=== PATIENT | male | born 1960 | race Caucasian/White ===

== ENCOUNTER 2023-11-07 10:45 | Inpatient (IN) | payer OTHER, SELFPAY ==
[2023-11-07] VITALS (11 sets, daily range): BP systolic 118–160; BP diastolic 53–72; PULSE 36–57; RESP 17–27; TEMP 36.7–37.2; O2SAT 93–99; BMI 27.3; BMI 28.2
--- NOTE | 2023-11-07 10:52 | XR_ITS ---
WS: [id number] Portable AP upright chest, 11/07/2023 Clinical Data: afib Comparison: None. Findings: No nodules or masses are seen. There is minimal opacity over the surface of the left diaph ragm which is probably atelectasis or possible minimal pneumonia. There is a small right pleural effu ankit. The heart is normal. The pulmonary vascularity is not increased. No pneumonia or pneumothorax i s seen. Monitor leads are on the chest wall. There is a monitor device overlying the right cardiac ian rder. There are old right sixth and seventh rib fractures laterally. XR/XR chest 1V portable [id number] Impression: 1. Minimal opacity over surface left diaphragm most likely atelectasis. 2. Small right pleural effusion.
--- NOTE | 2023-11-07 10:52 | ECG_ITS ---
[facility] Test Date: 2023-11-07 Pat Name: Oliver Pruett Department: Room: Gender: Male Audiologist: : 1960 Requested By: Lester Byrd Order Number: [id number] Judson MD: Kehinde Kilgore M.D. Measurements Intervals [place] Rate: 34 P: 0 AL: 0 QRS: 66 QRSD: 103 T: 3 QT: 458 QTc: 346 Interpretive Statements SINUS RHYTHM WITH HIGH GRADE AV BLOCK SEPTAL MYOCARDIAL INFARCTION , OF INDETERMINATE AGE [40+ ms Q WAVE IN V1/V2] No previous ECG available for comparison Electronically Signed On 11-07-2023 14:49:59 CDT by Kehinde Kilgore M.D. [id number] f
[2023-11-07 11:21] LABS: Basophils # 0.1 10^3/uL (0.0-0.1); Basophils % 0.3 %; Eosinophils # 0.8 10^3/uL (0.0-0.8); Eosinophils % 3.6 %; Hematocrit 41.3 % (37-53); Lymphocytes # 2.3 10^3/uL (0.8-4.8); Lymphocytes % 10.2 %; Mean Corpuscular Hemoglobin 30.1 pg (27-33); Mean Corpuscular Volume 94.3 fl (82-101); Mean Platelet Volume 8.6 fL (7.4-10.4); Monocytes # 1.7 10^3/uL (0.2-0.9); Monocytes % 7.5 %; Neutrophils # 17.54 10^3/uL (1.8-7.7); Neutrophils % 77.1 %; Nucleated Red Blood Cells % 0 %; Platelet Count 559 10^3/cmm (157-399); Red Blood Count 4.38 10^6/uL (3.85-5.65); Red Cell Distribution Width 13.8 % (12.1-15.1); White Blood Count 22.73 10^3/uL (3.29-11.43)
--- NOTE | 2023-11-07 11:22 | W.ED.ARRPALP ---
HPI - Arrhythmia/Palpitations General: Chief Complaint: Arrhythmia/Palpitations Stated Complaint: sent by [facility], Af Time Seen by Provider: 11/07/23 11:04 History of Present Illness: Patient with increased fatigue and feeling off for the past 3 weeks had episode of bronchitis versus pneumonia in clinic and was treated on doxycycline and prednisone. Just finishing up his prednisone now. No previous heart history no other medical problems no medications at baseline. Seen in clinic today and sent over for possible atrial fibrillation. EKG done in triage shows a ventricular rate of 34 with steady P waves unrelated to the QRS suggestive of third-degree heart block. Patient denies any chest pain. Does report increased fatigue and shortness of breath with any exertion no edema. Review of Systems General: Reports: 10 or more systems reviewed and unremarkable except in HPI and below PFSH ED PFSH: Social History Smoking and tobacco/nicotine status: never used tobacco/nicotine Physical Exam Const: COMMON NORMALS: no acute distress, average body habitus, patient oriented x3, healthy appearing, alert and well nourished GENERAL APPEARANCE: well kempt and well developed HENMT: COMMON NORMALS: normocephalic, atraumatic, external ears normal and moist oral mucous membranes HEAD & SCALP: normocephalic and atraumatic EXTERNAL EAR: Yes external ears normal Eye: COMMON NORMALS: Equal, round and reactive pupils present, EOMs intact bilaterally and conjunctivae normal CONJUNCTIVA: Yes conjunctivae normal PUPIL: Yes Equal, round and reactive pupils present Neck/C-Spine: COMMON NORMALS: full ROM, no lymphadenopathy and supple Chest: CHEST: Yes Symmetrical chest wall rise and No Surgical scars present (Chest) Resp: COMMON NORMALS: normal respiratory effort, No retractions, No use of accessory muscles and clear to auscultation bilaterally AUSCULTATION: clear to auscultation bilaterally Cardio: COMMON NORMALS: regular rhythm, S1 normal heart sound present, S2 normal heart sound present, No gallops present (Cardio), No clicks present (Cardio), No murmurs present (Cardio) and No rub (Cardio) RATE: bradycardic (30-40s) RHYTHM: regular rhythm HEART SOUNDS: S1 normal heart sound present, S2 normal heart sound present and no murmurs PERIPHERAL PULSES: other (Radial pulses 2+ and symmetric) GI: COMMON NORMALS: Soft to palpation, non-tender and no masses INSPECTION: No abdominal distension PALPATION: Yes Soft to palpation, No Guarding due to palpation present (GI) and No Rebound tenderness present : COMMON NORMALS: Yes no CVA tenderness BLADDER/KIDNEY EXAM: Yes no CVA tenderness Back/Pelvis: COMMON NORMALS: no CVA tenderness Extremity: COMMON NORMALS: normal to inspection, full ROM, capillary refill normal and no clubbing, cyanosis or edema Neuro: COMMON NORMALS: patient oriented x3 SENSORIUM/ORIENTATION: Yes alert Psych: APPEARANCE: Yes well kempt Skin: COMMON NORMALS: no rashes or lesions noted, no wounds, turgor normal and no jaundice GENERAL SKIN EXAM: no rashes or lesions noted and turgor normal Course ED course: Patient placed on pads, blood pressure maintaining appropriate normals. CBC back, pending electrolytes. Vital Signs: Vital signs: Vital Signs Temperature 99.0 F 11/07/23 23:24 Pulse Rate 57 L 11/07/23 23:24 Respiratory Rate 21 H 11/07/23 23:24 Blood Pressure 147/53 11/07/23 23:24 Pulse Oximetry 95 11/07/23 23:24 Oxygen Delivery Me thod Room Air, Nasal C annula 11/07/23 23:24 MDM - Arrhythmia/Palpitations Medical Decision Making Patient found to have third-degree heart block on EKG peer electrolytes were unrevealing for this. Has a leukocytosis secondary to recent steroid dosing. On chest x-ray on pressure review I see a small right pleural effusion. Radiology's impression shows minimal opacity over the surface of left diaphragm as well as small pleural effusion. BNP is also elevated. Suspect that patient's recent shortness of breath has been related heart issues for loop of time but today was noticed in clinic to have bradycardia and abnormal heart rhythm. Patient has no current history. Consulted Dr. Herrera for cardiology follow hospitalist for admission. Differential Diagnosis Likely artial fibrillation Medical Records I reviewed the patient's medical records. Lab Data I reviewed the patient's lab results. 11/07/23 11:08 11/07/23 11:08 Radiology Impressions Chest X-Ray 11/07/23 10:52 Impression: 1. Minimal opacity over surface left diaphragm most likely atelectasis. 2. Small right pleural effusion. Laboratory Results WBC 22.73 10^3/uL (3.29-11.43) H 11/07/23 11:08 RBC 4.38 10^6/uL (3.85-5.65) 11/07/23 11:08 Hgb 13.20 g/dL (11.27-16.99) 11/07/23 11:08 Hct 41.3 % (37-53) 11/07/23 11:08 MCV 94.3 fl (82-101) 11/07/23 11:08 MCH 30.1 pg (27-33) 11/07/23 11:08 MCHC 32.0 g/dL (30-55) 11/07/23 11:08 RDW 13.8 % (12.1-15.1) 11/07/23 11:08 Plt Count 559 10^3/cmm (157-399) H 11/07/23 11:08 MPV 8.6 fL (7.4-10.4) 11/07/23 11:08 Neut % (Auto) 77.1 % 11/07/23 11:08 Lymph % (Auto) 10.2 % 11/07/23 11:08 [place] % (Auto) 7.5 % 11/07/23 11:08 Eos % (Auto) 3.6 % 11/07/23 11:08 Baso % (Auto) 0.3 % 11/07/23 11:08 Neut # (Auto) 17.54 10^3/uL (1.8-7.7) H 11/07/23 11:08 Lymph # (Auto) 2.3 10^3/uL (0.8-4.8) 11/07/23 11:08 [place] # (Auto) 1.7 10^3/uL (0.2-0.9) H 11/07/23 11:08 Eos # (Auto) 0.8 10^3/uL (0.0-0.8) 11/07/23 11:08 Baso # (Auto) 0.1 10^3/uL (0.0-0.1) 11/07/23 11:08 Nucleated RBC % (auto) 0 % 11/07/23 11:08 Nucleated RBCs # 0.0 /100WBC 11/07/23 11:08 PT 14.30 SECONDS (12.1-14.9) 11/07/23 11:08 INR 1.08 (0.8-1.2) 11/07/23 11:08 APTT 31.1 SECONDS (23.9-36.7) 11/07/23 11:08 Sodium 133 mmol/L (136-145) L 11/07/23 11:08 Potassium 4.5 mmol/L (3.5-5.1) 11/07/23 11:08 Chloride 100 mmol/L (98-107) 11/07/23 11:08 Carbon Dioxide 23 mmol/L (22-29) 11/07/23 11:08 Anion Gap 14.5 (5-19) 11/07/23 11:08 BUN 20 mg/dL (8-23) 11/07/23 11:08 Creatinine 1.1 mg/dL (0.7-1.2) 11/07/23 11:08 GFR Calculation 67.4 mL/min (90-130) L 11/07/23 11:08 Glucose 123 mg/dL (65-115) H 11/07/23 11:08 Calculated Osmolality 280 mOsm/kg (285-295) L 11/07/23 11:08 Calcium 8.9 mg/dL (8.5-10.5) 11/07/23 11:08 Magnesium 1.9 mg/dL (1.7-2.3) 11/07/23 11:08 Total Bilirubin 0.5 mg/dL (0.15-1.2) 11/07/23 11:08 AST 17 U/L (0-40) 11/07/23 11:08 ALT 19 U/L (0-41) 11/07/23 11:08 Alkaline Phosphatase 100 U/L (40-130) 11/07/23 11:08 Troponin T Baseline 13 ng/L (0-15) 11/07/23 11:08 NT-Pro-B Natriuret Pep 2067 pg/mL (0-125) H 11/07/23 11:08 Total Protein 7.2 g/dL (6.6-8.7) 11/07/23 11:08 Albumin 3.6 g/dL (3.5-5.2) 11/07/23 11:08 Globulin 3.6 g/dL (1.3-4.6) 11/07/23 11:08 TSH 1.78 uIU/mL (0.27-4.20) 11/07/23 11:08 All radiology interpretation(s) finalized by discharge Critical Care Time Critical Care Time: Critical Care Time: Yes Total Critical Care Time: 45 Attestation: Critical care time exclusive of other procedures and involves bedside patient care, consultation of multiple other physicians as well as documentation and discussion with family and patient Discharge Plan Discharge Patient Disposition: Admitted As Inpatient Admit Provider: Andrea Telles Clinical Impression: Third degree heart block by electrocardiogram, Junctional rhythm, Bradycardia, Leukocytosis, Pleural effusion on right Condition: Stable Coding Level of Care Code ED [employer] Consultant for Jeremiah Goins
[2023-11-07 11:26] LABS: INR 1.08 (0.8-1.2)
[2023-11-07 11:27] LABS: Partial Thromboplastin Time 31.1 SECONDS (23.9-36.7)
[2023-11-07 11:43] LABS: Alanine Aminotransferase 19 U/L (0-41); Albumin Level 3.6 g/dL (3.5-5.2); Alkaline Phosphatase 100 U/L (40-130); Anion Gap 14.5 (5-19); Aspartate Amino Transferase 17 U/L (0-40); Blood Urea Nitrogen 20 mg/dL (8-23); Calcium 8.9 mg/dL (8.5-10.5); Carbon Dioxide 23 mmol/L (22-29); Chloride 100 mmol/L (98-107); Creatinine Clr Calc Pharmacy 72.9159; Globulin 3.6 g/dL (1.3-4.6); Glomerular Filtration Rate 67.4 mL/min (90-130); Glucose 123 mg/dL (65-115); Magnesium 1.9 mg/dL (1.7-2.3); NT Pro B Type Natriuretic Pept 2067 pg/mL (0-125); Osmolality Calculated 280 mOsm/kg (285-295); Potassium 4.5 mmol/L (3.5-5.1); Sodium 133 mmol/L (136-145); Thyroid Stimulating Hormone 1.78 uIU/mL (0.27-4.20); Total Bilirubin 0.5 mg/dL (0.15-1.2); Total Protein 7.2 g/dL (6.6-8.7)
--- NOTE | 2023-11-07 12:04 | USCV_ITS ---
Oliver Pruett Age: 63 Gender: M : 1960 Exam Date: 11/07/2023 13:54 Ordering Phys: Flaco Guillen MD Technologist: COURTNEY Exam Location: [facility] Indication: 3RD DEGREE BLOCK BP: 140 / 64 HR: 48 Rhythm: Sinus Technical Quality: Adequate MEASUREMENTS (Male / Female) Normal Values 2D ECHO LV Diastolic Diameter PLAX 4.9 cm 4.2 - 5.9 / 3.9 - 5.3 cm IVS Diastolic Thickness 0.9 cm 0.6 - 1.0 / 0.6 - 0.9 cm IVS Systolic Thickness 1.9 cm LVPW Diastolic Thickness 1.6 cm 0.6 - 1.0 / 0.6 - 0.9 cm LVPW Systolic Thickness 2.2 cm LVOT Diameter 2.0 cm LV Ejection Fraction 2D Teich 85.7 % LV Ejection Fraction MOD 2C 49.9 % LV Ejection Fraction 2C AL 49.9 % LA Diameter 2.9 cm RA Systolic Volume 4C AL 27.1 ml RA Systolic Volume 4C MOD 26.1 ml LA Sys Volume AL 58.9 cm cubed LA Sys Volume Index AL 28.9 cm cubed/m squared Aorta at Sinotubular Diameter 2.5 cm IVC Diameter 1.7 cm M-MODE LA Ao Ratio MM 0.9 AV Cusp Separation MM 1.7 cm DOPPLER AV Peak Velocity 205.0 cm/s LVOT Peak Velocity 148.0 cm/s AV Area Cont Eq vti 2.3 cm squared AV Area Cont Eq pk 2.3 cm squared MV Peak Velocity 136.0 cm/s MV Area PHT 3.5 cm squared Mitral E to A Ratio 1.2 TR Peak Velocity 314.0 cm/s TR Peak Gradient 39.4 mmHg TR Mean Velocity 243.0 cm/s TR Mean Gradient 25.7 mmHg TR Velocity Time Integral 111.0 cm TV Peak E Velocity 113.0 cm/s Right Atrial Pressure 3.0 mmHg Pulmonary Artery Systolic Pressu 42.4 mmHg PV Peak Velocity 110.0 cm/s RV Ejection Time 0.3 s FINDINGS Left Ventricle Normal left ventricular size and systolic function, EF 65%. No regional wall motion abnormalities. Right Ventricle The right ventricle is normal in size and function. Right Atrium The right atrium is normal in size. Left Atrium The left atrium is normal in size. Mitral Valve Mild-moderate mitral valve regurgitation. Aortic Valve No gross abnormalities noted Tricuspid Valve Trace to mild tricuspid valve regurgitation. Pulmonic Valve No gross abnormalities noted Pericardium Normal pericardium without effusion. Aorta Normal ascending aorta dimension. IVC The inferior vena cava appears normal. CONCLUSIONS Normal left ventricular size and systolic function, EF 65%. No regional wall motion abnormalities. Mild-moderate mitral valve regurgitation. Trace to mild tricuspid valve regurgitation. There is no pericardial effusion. There are no intracardiac masses. Estimated pulmonary artery peak systolic pressure 42 mmHg No similar previous studies are available for comparison Dr Griselda Herrera MD FACC (Electronically Signed) Final Date: 07 Nov 2023 20:03 S
[2023-11-07 12:18] LABS: Troponin(5th) Baseline 13 ng/L (0-15)
--- NOTE | 2023-11-07 12:53 | P.CONIM_ITS ---
Providers/Reason For Consult 2 Consulting Physician/Specialty*: ELIJAH Herrera MD/cardiology Reason for Consult*: Patient with the bradycardia Primary Care Provider: DEBRA Casas History of Present Illness History of Present Illness Oliver Pruett is a 63 year old male with no significant past medical history, is presenting with complaints of generalized weakness, body aches and a low- grade fever for a month and a half. For the last 3 days, he been feeling extremely tired and weak. He was seen in the local clinic this morning. His heart rate was found to be in the 30s. He was transferred to our facility for further evaluation management. According the patient, he has been very active and healthy up until a month and a half ago when he started having these aches and pains associated with generalized weakness and a low-grade fever. The fever has been intermittent. He had some amount of shortness of breath with activities also. He was seen by the primary care provider 2 weeks ago. He was placed on doxycycline for 10 days. Since then, he started feeling somewhat better. But for the last 3 days or so, he been feeling more drained out. Did not have any chest pain. No orthopnea or PND. He has no previous history for coronary artery disease, myocardial infarction or congestive heart failure. No history for hypertension, diabetes or dyslipidemia. He had a chest injury few years ago and had to undergo surgical resection of the lower lobe of the right lung. Since then, he has been having some amount of shortness of breath with activities. He has a 60-ryax-ilry history of smoking which he quit after his lung injury. No alcohol abuse or any other substance abuse. His mother had coronary disease and myocardial infarction. She had a permanent pacemaker implantation in her 60s. Father had a congestive heart failure and? Atrial fibrillation. He had a permanent pacemaker in his 70s or 80s. Patient has no previous history for any bradycardia. He is not on any medications to lower the heart rate at this point. Patient was found to have heart rate in the 30s at the time of the ER visit. Now it stays in the 40s. His systolic blood pressure has been staying above 120 all the time. Review of Systems 2 Narrative: CONSTITUTIONAL: Low-grade fever and generalized weakness as mentioned above EYES: No blurring of vision or other visual disturbances lately. ENT: No hoarseness of voice, auditory disturbances or sore throat. CARDIOVASCULAR: As mentioned above. RESPIRATORY: Shortness of breath as mentioned above GASTROINTESTINAL: No hematemesis or melena. GENITOURINARY: No dysuria or hematuria. INTEGUMENTARY: No skin rashes or history of skin cancer. NEURO: No transient ischemic attacks or amaurosis. PSYCHIATRIC: No history of psychosis or major depression. HEMATOLOGIC: No bleeding disorders or significant anemia. ENDOCRINE: No history of polyuria or polydipsia. MUSCULOSKELETAL: Generalized aches and pains/? Tick fever ALLERGY/IMMUNOLOGY: As mentioned above. Medications/Allergies Home Medications Medication Instructions Recorded Confirmed Last Taken Type No Known Home Medications 11/07/23 11/07/23 Unknown History Allergies Allergy/AdvReac Type Severity Reaction Status Date / Time No Known Allergies Allergy Verified 11/07/23 09:26 PFSH Acute 2 PFSH: Social History Smoking and tobacco/nicotine status: never used tobacco/nicotine Vitals/I&O/Wt Last Vital Signs Temp 98.0 F 11/07/23 10:56 Pulse 50 L 11/07/23 12:12 Resp 18 11/07/23 10:56 BP 132/61 11/07/23 12:12 Pulse Ox 97 11/07/23 12:12 O2 Del Method Room Air 11/07/23 10:56 Weight last 48 hrs Weight 185 lb Physical Exam 2 Narrative: GENERAL: The patient is alert and oriented times three. Not in any acute distress. HEENT: No significant pallor, icterus or lymphadenopathy.Oral cavity: There are no mucous membrane lesions. NECK: Trachea appears to be central. No masses noted. No JVD or thyromegaly appreciated. RESPIRATORY: Chest is symmetrical. No intercostals muscle retraction or any accessory muscle activation. There is no chest wall tenderness. Breath sounds are heard bilaterally. No rales or rhonchi heard. No evidence of any consolidation. BREASTS: Deferred. HEART: The heart sounds are normal. No S3 or S4. No significant murmurs. No pericardial rub ABDOMEN: No vessel pulsations or distention. No tenderness. No organomegaly appreciated. Bowel sounds are normally heard. : Deferred. RECTAL: Deferred. LYMPHATIC: No lymphadenopathy noted in the neck. EXTREMITIES: No edema or cyanosis. No clubbing. MUSCULOSKELETAL: No acute joint deformities or swelling SKIN: There are no significant rashes or ecchymosis NEUROPSYCHIATRIC: The patient is alert and oriented x3. Appears to be in a good mood. No tremors or rigidity noted. Data 11/07/23 11:08 11/07/23 11:08 Other Labs: Laboratory Last Values WBC 22.73 10^3/uL (3.29-11.43) H 11/07/23 11:08 RBC 4.38 10^6/uL (3.85-5.65) 11/07/23 11:08 Hgb 13.20 g/dL (11.27-16.99) 11/07/23 11:08 Hct 41.3 % (37-53) 11/07/23 11:08 MCV 94.3 fl (82-101) 11/07/23 11:08 MCH 30.1 pg (27-33) 11/07/23 11:08 MCHC 32.0 g/dL (30-55) 11/07/23 11:08 RDW 13.8 % (12.1-15.1) 11/07/23 11:08 Plt Count 559 10^3/cmm (157-399) H 11/07/23 11:08 MPV 8.6 fL (7.4-10.4) 11/07/23 11:08 Neut % (Auto) 77.1 % 11/07/23 11:08 Lymph % (Auto) 10.2 % 11/07/23 11:08 [place] % (Auto) 7.5 % 11/07/23 11:08 Eos % (Auto) 3.6 % 11/07/23 11:08 Baso % (Auto) 0.3 % 11/07/23 11:08 Neut # (Auto) 17.54 10^3/uL (1.8-7.7) H 11/07/23 11:08 Lymph # (Auto) 2.3 10^3/uL (0.8-4.8) 11/07/23 11:08 [place] # (Auto) 1.7 10^3/uL (0.2-0.9) H 11/07/23 11:08 Eos # (Auto) 0.8 10^3/uL (0.0-0.8) 11/07/23 11:08 Baso # (Auto) 0.1 10^3/uL (0.0-0.1) 11/07/23 11:08 Nucleated RBC % (auto) 0 % 11/07/23 11:08 Nucleated RBCs # 0.0 /100WBC 11/07/23 11:08 PT 14.30 SECONDS (12.1-14.9) 11/07/23 11:08 INR 1.08 (0.8-1.2) 11/07/23 11:08 APTT 31.1 SECONDS (23.9-36.7) 11/07/23 11:08 Sodium 133 mmol/L (136-145) L 11/07/23 11:08 Potassium 4.5 mmol/L (3.5-5.1) 11/07/23 11:08 Chloride 100 mmol/L (98-107) 11/07/23 11:08 Carbon Dioxide 23 mmol/L (22-29) 11/07/23 11:08 Anion Gap 14.5 (5-19) 11/07/23 11:08 BUN 20 mg/dL (8-23) 11/07/23 11:08 Creatinine 1.1 mg/dL (0.7-1.2) 11/07/23 11:08 GFR Calculation 67.4 mL/min (90-130) L 11/07/23 11:08 Glucose 123 mg/dL (65-115) H 11/07/23 11:08 Calculated Osmolality 280 mOsm/kg (285-295) L 11/07/23 11:08 Calcium 8.9 mg/dL (8.5-10.5) 11/07/23 11:08 Magnesium 1.9 mg/dL (1.7-2.3) 11/07/23 11:08 Total Bilirubin 0.5 mg/dL (0.15-1.2) 11/07/23 11:08 AST 17 U/L (0-40) 11/07/23 11:08 ALT 19 U/L (0-41) 11/07/23 11:08 Alkaline Phosphatase 100 U/L (40-130) 11/07/23 11:08 Troponin T Baseline 13 ng/L (0-15) 11/07/23 11:08 NT-Pro-B Natriuret Pep 2067 pg/mL (0-125) H 11/07/23 11:08 Total Protein 7.2 g/dL (6.6-8.7) 11/07/23 11:08 Albumin 3.6 g/dL (3.5-5.2) 11/07/23 11:08 Globulin 3.6 g/dL (1.3-4.6) 11/07/23 11:08 TSH 1.78 uIU/mL (0.27-4.20) 11/07/23 11:08 EKG 1: My Interpretation: Sinus tachycardia with a heart rate of 102 bpm. A-V dissociation. Third-degree AV block with junctional escape rhythm at a rate of 37 bpm. Other data: Chest x-ray shows small right-sided pleural effusion A&P Assessment and plan (1) Bradycardia: Patient seems to have sinus tachycardia without any heart block and junctional escape rhythm rate of 37 bpm. The etiology of this AV block is not clear at this time. Thyroid function is within normal limits. Tickborne illness (Lyme carditis) causing this cannot be completely excluded. (2) Congestive heart failure: Elevated BNP suggestive of diastolic heart failure.. Patient's LV function is not known at this time. For further evaluation, an echocardiogram would be helpful. Qualifiers: Heart failure type: diastolic Heart failure chronicity: acute Qualified Code(s): I50.31 - Acute diastolic (congestive) heart failure (3) Low grade fever: According the patient and his , he been having intermittent low-grade fever for a month and a half. (4) Fever with leukocytosis and leukocyte count greater than or equal to 20,000: The elevated white cell count, could be partly related to the steroids. Other etiologies cannot be excluded. Plan Echocardiogram to evaluate LV function and rule out any other pathology. Need to be closely monitored on telemetry. Since the patient seems to be hemodynamically stable, I may hold off on a temporary pacer at this point. Workup of the fever/Lyme disease as per the primary Based on the clinical progress, further recommendations will be made. Thank you for the opportunity to evaluate this patient and make these recommendations Consult Attestations 2 Medical Necessity Statement: Patient requires continued hospital stay for close monitoring and further management Coding Level of Care Code 60823 Diagnoses Bradycardia R00.1 Acute diastolic congestive heart failure I50.31 Heart failure type: diastolic Heart failure chronicity: acute Low grade fever R50.9 Fever with leukocytosis and leukocyte count greater than or equal to 20,000 D72.829
--- NOTE | 2023-11-07 14:47 | P.HP_ITS ---
Providers/Chief Complaint 2 Admitting Physician: Andrea Telles Primary Care Provider: DEBRA Casas Chief Complaint: sent by [facility], [facility] History of Present Illness Pleasant 63-year-old gentleman recently treated after a tick bite for possible tickborne fever, had some crackles in his lung and was also treated for possible respiratory tract infection, states he completed 14-day course of doxycycline. Was referred to emergency room due to concern for atrial fibrillation. In ER he is not found to be in A-fib, but is bradycardic heart rates in the 40s, as low as 36, with concern for high degree AV block. Review of Systems 2 Const: Reports: fatigue; Denies: fever(s), chills, body aches or malaise ENMT: Denies: throat pain Card: Denies: chest pain, edema, pre-syncope or dyspnea on exertion Resp: Denies: dyspnea, productive cough, change in phlegm color or hemoptysis GI: Denies: abdominal pain, nausea, vomiting, diarrhea, constipation, hematochezia or melena : Denies: flank pain, difficulty urinating, urinary frequency or hematuria Musc: Denies: back pain, joint swelling or joint redness Skin/Breast: Denies: rash or new lesions Neuro: Denies: headache(s) or confusion Endo: Denies: polyuria or polydipsia Medications/Allergies Home Medications Medication Instructions Recorded Confirmed Last Taken Type No Known Home Medications 11/07/23 11/07/23 Unknown History Allergies Allergy/AdvReac Type Severity Reaction Status Date / Time No Known Allergies Allergy Verified 11/07/23 09:26 PFSH Acute 2 PFSH: Social History Smoking and tobacco/nicotine status: never used tobacco/nicotine Vitals/I&O/Wt Last Vital Signs Temp 98.0 F 11/07/23 14:37 Pulse 45 L 11/07/23 14:37 Resp 17 11/07/23 14:37 BP 140/64 11/07/23 14:37 Pulse Ox 97 11/07/23 14:37 O2 Del Method Room Air 11/07/23 10:56 Weight last 48 hrs Weight 86.636 kg Weight 83.915 kg Physical Exam 2 Narrative: Accompanied by his Const: COMMON NORMALS: patient oriented x3 and alert GENERAL APPEARANCE: c ooperative ORIENTATION/CONSCIOUSNESS: Yes awake HENMT: COMMON NORMALS: oropharynx normal Neck/C-Spine: COMMON NORMALS: no JVD Resp: COMMON NORMALS: normal respiratory effort and clear to auscultation bilaterally AUSCULTATION: clear to auscultation bilaterally Cardio: COMMON NORMALS: no JVD, regular rhythm, S1 normal heart sound present, S2 normal heart sound present and No murmurs present (Cardio) RATE: b radycardic RHYTHM: regular rhythm HEART SOUNDS: S1 normal heart sound present and S2 normal heart sound present GI: COMMON NORMALS: Normal to inspection, nondistended, normoactive bowel sounds present, Soft to palpation and non-tender PALPATION: Yes Soft to palpation Extremity: COMMON NORMALS: no joint enlargement and no pedal edema Neuro: COMMON NORMALS: patient oriented x3 and moves all extremities S ENSORIUM/ORIENTATION: Yes alert Skin: COMMON NORMALS: no rashes or lesions noted GENERAL SKIN EXAM: no rashes or lesions noted Data 11/07/23 11:08 11/07/23 11:08 A&P Assessment and plan (1) Bradycardia: Reviewed vitals, CBC, INR, CMP, magnesium, TSH, EKG, chest x-ray, ED provider note, discussed with ED provider. Discussed with mail sorting supervisor. Referred to ED due to concern for atrial fibrillation, no A-fib, but is noted to be Significant bradycardia, down to severe bradycardia with 36 bpm, maintaining blood pressure. Concern for risk for cardiogenic shock/hemodynamic instability. Discussed with cardiology. TSH is WNL. Electrolytes are okay. Troponin is pending. Echocardiogram is requested. Follow-up. Question of possible complication of tick bite fever. Monitor on telemetry. Pacing pads are attached. Not requiring pressor at current time. Given risk of hemodynamic decompensation and cardiogenic shock decision to admit to [facility] for additional assessment and management. (2) Junctional rhythm: As above. (3) Leukocytosis: Leukocytosis 22.73, recently treated for suspected tickborne fever after tick bites. Completed 14 days of doxycycline. Also consideration of possible respiratory tract infection treated with same. Had some crackles on exam reportedly during the same visit. Denies cough, no sputum production. Afebrile currently. Leukocytosis 20.73 could be related to demargination secondary to steroids. Reassess blood counts. Monitor for any symptoms, he denies any symptoms that may relate to ongoing infection on review of systems, including no integumentary or dental problems. Occasionally smokes marijuana, denies any injection drug use. NT-proBNP with elevation 2066 Plan Atelectasis: On chest x-ray. Not flutter valve. Attestations 2 Medical Necessity Statement*: Place in observation for additional assessment of management of new severe bradycardia, junctional rhythm. Risk of hemodynamic decompensation, cardiogenic shock. Diagnoses Bradycardia R00.1 Junctional rhythm I49.8 Leukocytosis D72.829
--- NOTE | 2023-11-07 15:02 | PC.NURSE ---
notified physician on pt's arrival to room 106. and need further admit orderes.
[2023-11-07] MEDS: heparin 5,000 unit/mL INJ 1 mL 5000 UNIT SUBCUT (16:00)
--- NOTE | 2023-11-07 20:45 | PC.NURSE ---
Spoke with regrading patient request for something for sleep but is here with bradycardia and heart block. gave order for hydroxyzine PO once and to monitor heart rate.
[2023-11-07] MEDS: hyDROXYzine 25 mg Capsule PO (20:55)
[2023-11-08] VITALS (10 sets, daily range): BP systolic 112–141; BP diastolic 65–73; PULSE 49–113; RESP 15–27; TEMP 36.5–38.4; O2SAT 93–96
[2023-11-08] MEDS: heparin 5,000 unit/mL INJ 1 mL 5000 UNIT SUBCUT ×2 (03:42→14:34)
[2023-11-08 04:29] LABS: Basophils # 0.1 10^3/uL (0.0-0.1); Basophils % 0.3 %; Eosinophils # 0.5 10^3/uL (0.0-0.8); Eosinophils % 2.3 %; Hematocrit 37.1 % (37-53); Lymphocytes % 9.9 %; Mean Corpuscular HGB Conc 32.1 g/dL (30-55); Mean Corpuscular Hemoglobin 30.2 pg (27-33); Mean Corpuscular Volume 94.2 fl (82-101); Mean Platelet Volume 9.1 fL (7.4-10.4); Monocytes # 1.9 10^3/uL (0.2-0.9); Neutrophils # 15.87 10^3/uL (1.8-7.7); Neutrophils % 77.4 %; Nucleated Red Blood Cells % 0 %; Platelet Count 488 10^3/cmm (157-399); Red Blood Count 3.94 10^6/uL (3.85-5.65); Red Cell Distribution Width 13.8 % (12.1-15.1); White Blood Count 20.52 10^3/uL (3.29-11.43)
[2023-11-08 04:46] LABS: Alanine Aminotransferase 13 U/L (0-41); Albumin Level 3.1 g/dL (3.5-5.2); Alkaline Phosphatase 86 U/L (40-130); Anion Gap 15.2 (5-19); Aspartate Amino Transferase 16 U/L (0-40); Blood Urea Nitrogen 14 mg/dL (8-23); Calcium 7.8 mg/dL (8.5-10.5); Carbon Dioxide 19 mmol/L (22-29); Chloride 101 mmol/L (98-107); Creatinine Clr Calc Pharmacy 101.6954; Globulin 3.6 g/dL (1.3-4.6); Glomerular Filtration Rate 97.3 mL/min (90-130); Glucose 139 mg/dL (65-115); Magnesium 1.9 mg/dL (1.7-2.3); Osmolality Calculated 275 mOsm/kg (285-295); Potassium 4.2 mmol/L (3.5-5.1); Sodium 131 mmol/L (136-145); Total Bilirubin 0.8 mg/dL (0.15-1.2); Total Protein 6.7 g/dL (6.6-8.7)
--- NOTE | 2023-11-08 08:06 | P.PN_ITS ---
Subjective 2 Subjective: Patient is still complaining of generalized weakness and bodyaches. He is having more pain bilaterally in the lower extremities at the below-knee area. Has not had any fever since the hospital admission. The white cell count still remains elevated. Medications: Medication Review Details: Current Medications Acetaminophen (Acetaminophen 325 Mg Tablet) 650 mg PO Q6H PRN PRN Reason: Mild/Mod Pain Or Temp >/= 101 Heparin Sodium (Porcine) (Heparin 5,000 Unit/Ml Inj 1 Ml) 5,000 unit SUBCUT Q12H JL Last Admin: 11/08/23 03:42 Dose: 5,000 unit Ondansetron HCl (Ondansetron 2 Mg/Ml Sdv 2 Ml) 4 mg IVP Q8H PRN PRN Reason: vomiting, or N/V if npo Vitals/I&O/Wt Last Vital Signs Temp 98.2 F 11/08/23 07:37 Pulse 96 11/08/23 07:37 Resp 16 11/08/23 04:00 BP 136/70 11/08/23 07:37 Pulse Ox 96 11/08/23 07:37 O2 Del Method Room Air 11/08/23 07:37 11/07/23 11/08/23 11/08/23 22:59 06:59 14:59 Intake Total 460 / 460 Output Total 700 / 700 850 / 1550 275 / 275 Balance -700 / -700 -390 / -1090 -275 / -275 Weight last 48 hrs Weight 189 lb 3.2 oz Weight 191 lb Weight 185 lb Physical Exam 2 Narrative: GENERAL: The patient is alert and oriented times three. Not in any acute distress. HEENT: No significant pallor, icterus or lymphadenopathy.Oral cavity: There are no mucous membrane lesions. NECK: Trachea appears to be central. No masses noted. No JVD or thyromegaly appreciated. RESPIRATORY: Chest is symmetrical. No intercostals muscle retraction or any accessory muscle activation. There is no chest wall tenderness. Breath sounds are heard bilaterally. No rales or rhonchi heard. No evidence of any consolidation. BREASTS: Deferred. HEART: The heart sounds are normal. No S3 or S4. No significant murmurs. No pericardial rub ABDOMEN: No vessel pulsations or distention. No tenderness. No organomegaly appreciated. Bowel sounds are normally heard. : Deferred. RECTAL: Deferred. LYMPHATIC: No lymphadenopathy noted in the neck. EXTREMITIES: The below-knee areas are tender to touch bilaterally MUSCULOSKELETAL: No acute joint deformities or swelling SKIN: There are no significant rashes or ecchymosis NEUROPSYCHIATRIC: The patient is alert and oriented x3. Appears to be in a good mood. No tremors or rigidity noted. Data 11/08/23 03:59 11/08/23 03:59 Other Labs: Laboratory Last Values WBC 20.52 10^3/uL (3.29-11.43) H 11/08/23 03:59 RBC 3.94 10^6/uL (3.85-5.65) 11/08/23 03:59 Hgb 11.90 g/dL (11.27-16.99) 11/08/23 03:59 Hct 37.1 % (37-53) 11/08/23 03:59 MCV 94.2 fl (82-101) 11/08/23 03:59 MCH 30.2 pg (27-33) 11/08/23 03:59 MCHC 32.1 g/dL (30-55) 11/08/23 03:59 RDW 13.8 % (12.1-15.1) 11/08/23 03:59 Plt Count 488 10^3/cmm (157-399) H 11/08/23 03:59 MPV 9.1 fL (7.4-10.4) 11/08/23 03:59 Neut % (Auto) 77.4 % 11/08/23 03:59 Lymph % (Auto) 9.9 % 11/08/23 03:59 [place] % (Auto) 9.0 % 11/08/23 03:59 Eos % (Auto) 2.3 % 11/08/23 03:59 Baso % (Auto) 0.3 % 11/08/23 03:59 Neut # (Auto) 15.87 10^3/uL (1.8-7.7) H 11/08/23 03:59 Lymph # (Auto) 2.0 10^3/uL (0.8-4.8) 11/08/23 03:59 [place] # (Auto) 1.9 10^3/uL (0.2-0.9) H 11/08/23 03:59 Eos # (Auto) 0.5 10^3/uL (0.0-0.8) 11/08/23 03:59 Baso # (Auto) 0.1 10^3/uL (0.0-0.1) 11/08/23 03:59 Nucleated RBC % (auto) 0 % 11/08/23 03:59 Nucleated RBCs # 0.0 /100WBC 11/08/23 03:59 PT 14.30 SECONDS (12.1-14.9) 11/07/23 11:08 INR 1.08 (0.8-1.2) 11/07/23 11:08 APTT 31.1 SECONDS (23.9-36.7) 11/07/23 11:08 Sodium 131 mmol/L (136-145) L 11/08/23 03:59 Potassium 4.2 mmol/L (3.5-5.1) 11/08/23 03:59 Chloride 101 mmol/L (98-107) 11/08/23 03:59 Carbon Dioxide 19 mmol/L (22-29) L 11/08/23 03:59 Anion Gap 15.2 (5-19) 11/08/23 03:59 BUN 14 mg/dL (8-23) 11/08/23 03:59 Creatinine 0.8 mg/dL (0.7-1.2) 11/08/23 03:59 GFR Calculation 97.3 mL/min (90-130) 11/08/23 03:59 Glucose 139 mg/dL (65-115) H 11/08/23 03:59 Calculated Osmolality 275 mOsm/kg (285-295) L 11/08/23 03:59 Calcium 7.8 mg/dL (8.5-10.5) L 11/08/23 03:59 Magnesium 1.9 mg/dL (1.7-2.3) 11/08/23 03:59 Total Bilirubin 0.8 mg/dL (0.15-1.2) 11/08/23 03:59 AST 16 U/L (0-40) 11/08/23 03:59 ALT 13 U/L (0-41) 11/08/23 03:59 Alkaline Phosphatase 86 U/L (40-130) 11/08/23 03:59 Troponin T Baseline 13 ng/L (0-15) 11/07/23 11:08 NT-Pro-B Natriuret Pep 2067 pg/mL (0-125) H 11/07/23 11:08 Total Protein 6.7 g/dL (6.6-8.7) 11/08/23 03:59 Albumin 3.1 g/dL (3.5-5.2) L 11/08/23 03:59 Globulin 3.6 g/dL (1.3-4.6) 11/08/23 03:59 TSH 1.78 uIU/mL (0.27-4.20) 11/07/23 11:08 Other data: Echocardiogram revealed Normal left ventricular size and systolic function, EF 65%. No regional wall motion abnormalities. Mild-moderate mitral valve regurgitation. Trace to mild tricuspid valve regurgitation. There is no pericardial effusion. There are no intracardiac masses. Estimated pulmonary artery peak systolic pressure 42 mmHg No similar previous studies are available for comparison A&P Assessment and plan (1) Bradycardia: Patient has intermittent third-degree AV block and A-V dissociation. The etiology is unclear. The ventricular rate is ranging area from 47 to 96 bpm (2) Congestive heart failure: Patient has some features of diastolic heart failure. The LV systolic function is normal by echocardiogram. May consider doing a cardiac catheterization to further evaluate the coronary status Qualifiers: Heart failure chronicity: acute Heart failure type: diastolic Qualified Code(s): I50.31 - Acute diastolic (congestive) heart failure (3) Low grade fever: According the patient and his , he been having intermittent low-grade fever for a month and a half. (4) Fever with leukocytosis and leukocyte count greater than or equal to 20,000: The elevated white cell count, could be partly related to the steroids. Other etiologies cannot be excluded. Currently remaining afebrile May consider doing a blood culture and also a CRP (5) Bilateral leg pain: Patient seems to have hypersensitive skin of the lower extremity. The features may suggest some form of neuropathy. Plan Blood culture x 2 Urine analysis CRP May consider cardiac catheterization, once the infectious etiology is ruled out. Based on the clinical progress, further recommendations will be made Attestations 2 Medical Necessity Statement*: Patient requires continued hospital stay for close monitoring and further management Coding Level of Care Code 77795 Diagnoses Bradycardia R00.1 Acute diastolic congestive heart failure I50.31 Heart failure chronicity: acute Heart failure type: diastolic Low grade fever R50.9 Fever with leukocytosis and leukocyte count greater than or equal to 20,000 D72.829 Bilateral leg pain M79.604; M79.605
--- NOTE | 2023-11-08 08:48 | P.HPUD_ITS ---
Surgery/Procedure H&P Update DATE OF PROCEDURE: November 08, 2023 DATE H&P PERFORMED: 11/07/23 H&P UPDATE INFORMATION: I have reviewed H&P completed within last 30 days, I have examined patient prior to procedure and No changes to prior documentation PREOP DIAGNOSIS: ASHD PRIMARY INDICATION FOR PROCEDURE: Chest pain/abnormal stress test/aortic valve stenosis PLANNED PROCEDURE: Left heart catheterization with coronary angiogram and possible PCI PATIENT REASSESSED PRIOR TO SEDATION, WITH NO CHANGE NOTED: Yes PHYSICAL EXAM: alert, oriented x 3, clear to auscultation bilaterally and regular rate & rhythm AIRWAY EVAL/ANESTHESIA PLAN: normal airway, see other exam findings, ASA III, Mo nitored Anesthesia, Local Anesthesia, Risks, benefits & alternatives of sedation and/or procedure discussed and Patient agrees to continue as planned
--- NOTE | 2023-11-08 10:09 | PC.NURSE ---
Patient complained of nausea and overall not feeling well. At that time heart rate was 27 as measured by telemetry. Dr. Herrera is aware of the situation. Patient states he thinks he was just upset at the news Dr. Herrera just gave him. Nurse brought Yobani to be given IVP but patient said he no longer needed it.
[2023-11-08] MEDS: magnesium sulfate premix 1 GM/100 ML PIGGYBACK IV (10:49)
[2023-11-08] MEDS: acetaminophen 325 mg Tablet 650 MG PO ×2 (11:28→21:25)
--- NOTE | 2023-11-08 11:29 | PC.NURSE ---
acetaminophen given for a temperature of 101.4.
[2023-11-08 12:05] LABS: Creatine Phosphokinase 37 U/L (39-308)
[2023-11-08] MEDS: ondansetron 2 mg/ML SDV 2 mL 4 MG IVP ×2 (12:05→17:38)
[2023-11-08 12:15] LABS: Procalcitonin 0.14 ng/mL (0-0.5)
--- NOTE | 2023-11-08 14:16 | CTR_ITS ---
PROCEDURE INFORMATION: Exam: CT Right Lower Extremity With Contrast, Foot Exam date and time: 11/08/2023 2:39 PM Age: 63 years old Clinical indication: Pain; Swelling, leg or foot; Right; Additional info: Pain, swelling, assess for any injury, tophi, large effusion TECHNIQUE: Imaging protocol: CT of the right lower extremity with intravenous contrast was performed. Exam focused on the foot. Radiation optimization: All CT scans at this facility use at least one of these dose optimization techniques: automated exposure control; mA and/or kV adjustment per patient size (includes targeted exams where dose is matched to clinical indication); or iterative reconstruction. Contrast material: [id number]; Contrast volume: 50 ml; Contrast route: INTRAVENOUS (IV); COMPARISON: CT ankle RT w con [id number] 11/08/2023 2:39 PM RADIATION DOSE METRICS: Total DLP (mGy-cm): 347.32 FINDINGS: Bones/joints: No acute fracture, dislocation or osteomyelitis. There is a tiny plantar calcaneal enthesophyte at the insertion of the plantar aponeurosis. Lisfranc joint alignment is intact. There is a bipartite medial sesamoid bone with sclerosis of the proximal ossicle suggesting sesamoiditis but no collapse or osteonecrosis. Moderate degenerative changes between the plantar 1st metatarsal head and sesamoid bones are noted with marginal osteophytes and sclerosis. There is a 1st MTP joint effusion. No stress or insufficiency fracture. Soft tissues: There is abundant soft tissue edema adjacent to the 1st MTP joint. No soft tissue calcifications, gouty tophus or typical gouty erosions. There is mild diffuse edema of the skin and subcutaneous fat right foot and ankle with that localized fluid collections such as a hematoma or abscess. No gas in the soft tissues or muscles. Other findings: No inflammatory erosions. CT/CT foot RT w con [id number] IMPRESSION: 1. No acute fracture, dislocation or inflammatory erosions. No osteopenia periosteal reaction or osteomyelitis. No stress fracture. 2. No soft tissue calcifications, gouty tophus or typical gouty erosions. 3. There is abundant soft tissue edema 1st MTP joint and adjacent medial soft tissues. There are prominent degenerative changes between the plantar 1st metatarsal head and sesamoid bones. There is concern for sesamoiditis proximal ossicle medial bipartite sesamoid bone. No sesamoid osteonecrosis. 4. Note is made that a patient clinically can have gout and have no CT evidence of gout early in the disease. Typically the erosions and calcifications developed after several years. Please correlate clinically.
--- NOTE | 2023-11-08 14:16 | CTR_ITS ---
PROCEDURE INFORMATION: Exam: CT Right Lower Extremity With Contrast, Ankle Exam date and time: 11/08/2023 2:39 PM Age: 63 years old Clinical indication: Pain; Swelling, leg or foot; Ankle; Right; Additional info: R lower leg pain, swelling, assess for any injury, tophi, large effusion TECHNIQUE: Imaging protocol: CT of the right lower extremity with intravenous contrast was performed. Exam focused on the ankle. Radiation optimization: All CT scans at this facility use at least one of these dose optimization techniques: automated exposure control; mA and/or kV adjustment per patient size (includes targeted exams where dose is matched to clinical indication); or iterative reconstruction. Contrast material: [id number]; Contrast volume: 50 ml; Contrast route: INTRAVENOUS (IV); COMPARISON: CT foot RT w con [id number] 11/08/2023 2:39 PM RADIATION DOSE METRICS: Total DLP (mGy-cm): 347.32 FINDINGS: Bones/joints: No acute fracture or dislocation. There is a small plantar calcaneal enthesophyte. No edema in Kager's fat pad. No retrocalcaneal bursitis. No ankle joint effusion. No periosteal reaction or osteomyelitis. Soft tissues: There is some mild diffuse edema of the skin and subcutaneous fat of the lower leg and ankle which is nonspecific and may reflect lymphedema, venous stasis or cellulitis. No gas in the soft tissues. There is thickening of the Achilles tendon compatible with chronic tendinopathy without tear. Other findings: No localized fluid collection such as an abscess. CT/CT ankle RT w con [id number] IMPRESSION: 1. No acute bony abnormality. 2. Moderate Achilles tendinopathy. 3. Nonspecific mild subcutaneous edema.
[2023-11-08] MEDS: cefTRIAXone 2,000 MG in sodium chloride 0.9% (plus) 50 ML 100 MG IV (14:36)
[2023-11-08 14:39] LABS: C Reactive Protein 99.7 mg/L (0.0-4.9); Uric Acid 4.9 mg/dL (3.4-7.0)
[2023-11-08 14:39] LABS: Erythrocyte Sedimentation Rate 71 mm/hr (0-10)
[2023-11-08 14:41] LABS: Bilirubin Urine Neg (Negative); Blood Urine 2+ (Negative); Glucose Urine UA Norm (Normal); Ketones Urine Negative (Negative); Leukocyte Esterase Urine Negative (Negative); Nitrate Urine Negative (Negative); Protein Urine Neg (Negative); Specific Gravity, Urine 1.005 (1.005-1.030); Urine Appearance Clear (CLEAR); Urine Color Straw (Yellow); Urobilinogen Urine Norm (Negative); pH Urine 5 (5-7)
[2023-11-08] MEDS: iohexol 350 mg/mL 500 mL Btl (per mL) IV ×2 (14:41→14:48)
[2023-11-08 14:42] LABS: Add Urine Culture? No; Add Urine Microscopic? YES; Bacteria Urine TRACE /hpf; RBC Urine RARE /hpf (0-2)
[2023-11-08 15:30] LABS: Lactic Sepsis W/Reflex 0.9 mmol/L (0.5-2.2)
[2023-11-08] MEDS: azithromycin 500 MG in sodium chloride 0.9% 250 ML 250 MG IV (16:00)
--- NOTE | 2023-11-08 17:19 | P.CONIM_ITS ---
Providers/Reason For Consult 2 Consulting Physician/Specialty*: Frederic ChapaPDiana/podiatry Reason for Consult*: Concern for right septic ankle Attending Physician: Andrea Telles Primary Care Provider: DEBRA Casas History of Present Illness History of Present Illness Oliver Pruett is a 63 year old male who presented to the emergency department yesterday 11/07/2023 with chief complaint of increased fatigue and general malaise over the course the past 3 weeks. Recently had an episode of bronchitis versus pneumonia outpatient. He was prescribed doxycycline and prednisone. He was sent over to the emergency department for possible atrial fibrillation. He was found to have third-degree heart block upon workup in the emergency department. Cardiology was consulted and patient underwent catheterization with coronary angiogram today 11/08/2023. With workup patient was found to have leukocytosis of 22,000. Patient complains also of severe right ankle pain. He states that his ankle has been hurting for the past year. He states that the pain started at the big toe joint but now has migrated to the ankle joint. His big toe joint does not hurt now. He states that it just feels like a tight rubber band is around it. He states that this is by far the worst that his right ankle has felt in the past year. Patient was recently treated for tickborne fever after tick bites. With recent possible tickborne illness and recent respiratory tract infection with concomitant ankle pain, concern is for septic arthritis. Podiatry was consulted to evaluate and provide further recommendations. Patient states that he has had symptoms of malaise, fever, chills, nausea. Review of Systems 2 General: Reports: 10 or more systems reviewed and unremarkable except in HPI and below Const: Denies: fever(s), chills, fatigue or malaise Eyes: Denies: change in vision ENMT: Denies: throat pain or ear or mastoid pain Card: Denies: chest pain or palpitations Resp: Denies: dyspnea GI: Denies: abdominal pain, nausea or vomiting Musc: Reports: extremity pain, extremity swelling, joint pain, joint swelling and limited range of motion Skin/Breast: Denies: skin tenderness or sores Medications/Allergies Home Medications Medication Instructions Recorded Confirmed Last Taken Type No Known Home Medications 11/07/23 11/07/23 Unknown History Allergies Allergy/AdvReac Type Severity Reaction Status Date / Time No Known Allergies Allergy Verified 11/07/23 09:26 Current Medications Generic Name Dose Route Start Last Admin Trade Name Freq PRN Reason Stop Dose Admin Acetaminophen 650 mg 11/07/23 15:03 11/08/23 11:28 Acetaminophen 325 Mg Tablet PO 650 mg Q6H PRN Administration Mild/Mod Pain Or Temp >/= 101 Heparin Sodium (Porcine) 5,000 unit 11/07/23 15:15 11/08/23 14:34 Heparin 5,000 Unit/Ml Inj 1 Ml SUBCUT 5,000 unit Q12H JL Administration Ceftriaxone Sodium 2,000 mg/ 50 mls @ 100 mls/hr 11/08/23 14:30 11/08/23 15:34 Sodium Chloride IV Infused Q24H JL Infusion Protocol Azithromycin 500 mg/ Sodium 250 mls @ 250 mls/hr 11/08/23 14:30 11/08/23 16:00 Chloride IV 250 mls/hr Q24H JL Administration Protocol Ondansetron HCl 4 mg 11/07/23 15:03 11/08/23 12:05 Ondansetron 2 Mg/Ml Sdv 2 Ml IVP 4 mg Q8H PRN Administration vomiting, or N/V if npo PFSH Acute 2 PFSH: Social History Smoking and tobacco/nicotine status: never used tobacco/nicotine Vitals/I&O/Wt Last Vital Signs Temp 98.4 F 11/08/23 16:00 Pulse 77 11/08/23 16:00 Resp 15 11/08/23 16:00 BP 126/68 11/08/23 16:00 Pulse Ox 96 11/08/23 16:00 O2 Del Method Room Air 11/08/23 16:00 11/08/23 11/08/23 11/08/23 06:59 14:59 22:59 Intake Total 460 / 460 943.333 / 943.333 46.667 / 990.000 Output Total 850 / 1550 475 / 475 Balance -390 / -1090 468.333 / 468.333 46.667 / 515.000 Weight last 48 hrs Weight 189 lb 3.2 oz Weight 191 lb Weight 185 lb Physical Exam 2 Narrative: BELOW IS A FOCUSED LOWER EXTREMITY EXAM GENERAL: A&O x 3 VASCULAR: DP/PT pulses palpable 2/4 with CFT intact, <3seconds to distal digits. Pulses are audibly, strongly biphasic on hand-held Doppler at bedside. Marked edema to right ankle in comparison to contralateral side DERMATOLOGICAL: Bilateral lower extremities are warm to touch. Right ankle does show increase in palpable temperature compared to contralateral side. Erythema over medial aspect of right ankle in the retromalleolar area overlying the medial malleolus, posterior tibial tendon and nicole pedis region. No underlying fluctuance. No open wounds. MUSCULOSKELETAL: Pain with palpation of right ankle along the medial and lateral gutters as well as anterior surface at the level of the mortise. Pain with palpation of retromalleolar area over the posterior tibial tendon and PT artery. NEUROLOGICAL: Neurological sensation to the affected foot and ankle is present through L4-S1 dermatomes with no hyper/hypoesthesias, negative Tinel or Valleix's sign IMAGING: CT scan right ankle personally interpreted by me. No fluid accumulation or appreciable abscess. No evidence of osteomyelitis. Data 11/08/23 03:59 11/08/23 03:59 Micro: Microbiology 11/08/23 11:16 Blood Culture - Preliminary Blood SPECIMEN COLLECTED 11/08/23 11:19 Blood Culture - Preliminary Blood SPECIMEN COLLECTED A&P Assessment and plan (1) Pain in right ankle: (2) Leukocytosis: Qualifiers: Leukocytosis type: unspecified Qualified Code(s): D72.829 - Elevated white blood cell count, unspecified Plan -Right ankle pain and inflammation. -Labs and vitals reviewed -WBC 20.5 -ESR 71 -CRP 99.7 -HR 77 -RR 15 -Tmax 101.2 -Cultures: Blood cultures pending -Abx: Vanco/Rocephin -Diet: Okay for diet from podiatry standpoint -Consent was obtained and patient underwent right ankle joint aspiration. See general procedure note for details. Straw-colored synovial fluid with small amount of blood. 1.5 cc obtained. Based on aspiration do not suspect septic joint at this time. Discussed with hospitalist. Recommend MRI right foot and ankle with and without contrast. Based on MRI findings we will be able to provide further recommendations of treatment from a podiatry standpoint -Pain Mgmt: Per admitting physician -Continue current Abx therapy until ID and Sensitivity results -Trend labs -Discharge plan: To be determined -Podiatry will continue to round on patient daily and provide recommendations Coding Level of Care Code Acute Code for Chg Fwd Diagnoses Pain in right ankle M25.571 Leukocytosis D72.829 Leukocytosis type: unspecified
[2023-11-08] MEDS: doxycycline 100 MG in sodium chloride 0.9% (plus) 100 ML IV (17:31)
--- NOTE | 2023-11-08 18:01 | PM.ACPR ---
Procedure/Consent Procedure Narrative: Consent was obtained, attention was directed to the right ankle. Right anteromedial ankle was prepped with chlorhexidine before being anesthetized with 3 cc of 1% lidocaine plain. Next, site was prepped with Betadine. After anesthesia was achieved an 18-gauge needle was then inserted into the anteromedial portal of the ankle joint. Once within the ankle joint capsule, 1.5 cc of aspirate was obtained. This was noted to have a straw-colored hue with intermixed small amount of blood. No cloudy fluid or evidence of purulence. Specimen sent to lab for fluid culture and Gram stain, synovial analysis with cell count and crystal analysis. OpSite was then applied to area of aspiration. Patient tolerated procedure well and without complication.
[2023-11-08] MEDS: vancomycin 1,500 MG/300 ML PIGGYBACK 200 MG IV (18:41)
[2023-11-08] MEDS: metoclopramide 5 mg/mL SDV 2 mL IVP (19:45)
[2023-11-08 20:40] LABS: Cyto Order Verification No Order
[2023-11-08 20:40] LABS: Appearance Synovial Fluid BLOODY (CLEAR); Color Synovial Fluid RED (PALE YELLOW); PATH Referal YES
[2023-11-08 21:03] LABS: RBC Synovial Fluid 28 10^3/uL (0-0); Synovial Fluid Mononuclear # 0.777 10^3/uL; Synovial Fluid Polynuclear # 5.049 10^3/uL; WBC Synovial Fluid 5826 /uL (0-150)
[2023-11-08 21:09] LABS: Crystals, Fluid SEE PATH CONSULT
--- NOTE | 2023-11-08 22:09 | PM.PN ---
Subjective Subjective: Today with malaise, feeling warm, subsequently spiking a fever. This morning additionally having pain in his legs to some extent below the knees, worse on the right, cannot put weight on the right foot/ankle. Moderate pain in the right knee, milder pain in the left lower leg. Additionally having vomiting today. Rates variability but also with tachycardia. Vitals/I&O/Wt Last Vital Signs Temp 100.8 F H 11/08/23 20:00 Pulse 113 H 11/08/23 20:00 Resp 27 H 11/08/23 20:00 BP 112/73 11/08/23 20:00 Pulse Ox 94 11/08/23 20:00 O2 Del Method Room Air 11/08/23 20:00 11/08/23 11/08/23 11/08/23 06:59 14:59 22:59 Intake Total 460 / 460 943.333 / 943.333 696.667 / 1640.000 Output Total 850 / 1550 475 / 475 1360 / 1835 Balance -390 / -1090 468.333 / 468.333 -663.333 / -195.000 Weight last 48 hrs Weight 85.82 kg Weight 86.636 kg Weight 83.915 kg Physical Exam Narrative: Accompanied by his Const: COMMON NORMALS: patient oriented x3 and alert GENERAL APPEARANCE: cooperative ORIENTATION/CONSCIOUSNESS: Yes awake HENMT: COMMON NORMALS: oropharynx normal Neck/C-Spine: COMMON NORMALS: no JVD Resp: COMMON NORMALS: normal respiratory effort and clear to auscultation bilaterally AUSCULTATION: clear to auscultation bilaterally Cardio: COMMON NORMALS: no JVD, regular rhythm, S1 normal heart sound present, S2 normal heart sound present and No murmurs present (Cardio) RATE: bradycardic RHYTHM: regular rhythm HEART SOUNDS: S1 normal heart sound present and S2 normal heart sound present GI: COMMON NORMALS: Normal to inspection, nondistended, normoactive bowel sounds present, Soft to palpation and non-tender PALPATION: Yes Soft to palpation Extremity: COMMON NORMALS: no joint enlargement and no pedal edema OTHER: Warmth and swelling of the right foot, right ankle. See much erythema. Definitely swollen compared to the left. There is moderate to severe pain on PROM of the foot and right ankle. Moderate pain with PROM of the right knee. No swelling or erythema at the right knee. Milder pain with PROM of the left foot, ankle and knee. Neuro: COMMON NORMALS: patient oriented x3 and moves all extremities SENSORIUM/ORIENTATION: Yes alert Skin: COMMON NORMALS: no rashes or lesions noted GENERAL SKIN EXAM: no rashes or lesions noted Sepsis: Is patient septic: Yes Focused sepsis exam: Good peripheral perfusion, no mottling, good capillary refill. 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 Requested CK. Requested CRP, ESR. Noted elevated. Newly febrile today up to 101.2. Additionally heart rate even with some tachycardia. Discussed with him and his , possible sepsis versus SIRS with some sort of significant inflammation. Unclear at current time. With possible sepsis obtain blood culture, lactic acid, requested antibiotic coverage as per discussion with him ceftriaxone, azithromycin for possible pneumonia with noted infiltrate on chest x-ray, recent suspicion of pneumonia. Additionally with concern for possible tickborne infection, discussed also possibility of tick borne/Lyme carditis given heart block, recent tick bite. He denies bull's-eye rash, however, temporally and symptomatically certainly possible. Will have coverage from ceftriaxone, although as per discussion with him we restarted doxycycline as well. Discussed with him course of doxycycline was only 7 days or as usually would treat for 14 days for suspicion of possible Lyme disease. With carditis treatment may be extended up to 21 days. Still possibility of bacteremia, septic arthritis discussed with him. Alternative diagnoses discussed as well possibility of gout, pseudogout, he does state that he and family include a lot of beef in their diet. As per discussion with concern of possible bacteremia follow-up blood culture, continue empiric antibiotic with ceftriaxone, added vancomycin as well. Monitor for risk of kidney injury with vancomycin. In case of bacteremia possibly from pneumonia or other source possible joint seeding, septic arthritis, discussed concerns, possible destruction nature of the condition to the joint, possible distant spread. Revisited with him and discussed with him consultation with podiatry, arthrocentesis. He is agreeable. Discussed with patient portal concierge, appreciate consultation. Arthrocentesis initially without success but on second attempt with success, fluid sent for analysis. (2) Pain in right ankle: (3) Foot pain: (4) Bradycardia: Episode of pause of 5.7 seconds with episode of vomiting. Continue Zofran as needed. Cardiology notified. Maintain pacer leads as per discussion with nursing staff. Otherwise today newly having some episodes of tachycardia, possibly related to SIRS versus sepsis as above. Discussed with cardiology, continue to monitor heart rates. Continue consideration of whether pacemaker may or may not be needed. Discussed with him with his symptoms, recent tick bite, consideration of possibility of Lyme carditis. Restarted on antibiotics. Reviewed echocardiogram, normal ejection fraction, no regional wall motion abnormality. Mild to moderate MVR. Trace to mild TVR. No effusion. No intracardiac masses. Estimated systolic peak pulmonary artery pressure 42 mmHg. (5) Junctional rhythm: As above. (6) Leukocytosis: As above. NT-proBNP with elevation 2066 Qualifiers: Leukocytosis type: unspecified Qualified Code(s): D72.829 - Elevated white blood cell count, unspecified (7) Bilateral leg pain: As above. With oligoarthritis as above. Requested CK, reviewed, normal. No significant calf or proximal swelling, erythema to suggest DVT. Plan Atelectasis: On chest x-ray. Requested incentive spirometer Attestations Medical Necessity Statement*: Admission over 2 midnights required for assessment and management of SIRS, possible sepsis, acute oligoarthritis. Possible Lyme carditis. and High Time for a total of 75 minutes, includes reviewing past or interval history, examining/interviewing patient, placing orders, counseling patient/family/other support, updating patient/family/other support, discussing plan of care with staff, communicating with other healthcare providers, documenting encounter and coordinating care Diagnoses SIRS (systemic inflammatory response syndrome) R65.10 Pain in right ankle M25.571 Foot pain M79.673 Bradycardia R00.1 Junctional rhythm I49.8 Leukocytosis D72.829 Leukocytosis type: unspecified Bilateral leg pain M79.604; M79.605
[2023-11-09] VITALS (144 sets, daily range): BP systolic 107–128; BP diastolic 63–76; PULSE 75–108; RESP 11–30; TEMP 36.6–37.4; O2SAT 87–97; BMI 27.6
[2023-11-09] MEDS: doxycycline 100 MG in sodium chloride 0.9% (plus) 100 ML IV (03:57)
[2023-11-09] MEDS: heparin 5,000 unit/mL INJ 1 mL 5000 UNIT SUBCUT ×2 (03:57→15:58)
[2023-11-09 04:40] LABS: Basophils # 0.1 10^3/uL (0.0-0.1); Basophils % 0.3 %; Eosinophils # 0.2 10^3/uL (0.0-0.8); Eosinophils % 0.6 %; Hematocrit 36.9 % (37-53); Lymphocytes # 1.6 10^3/uL (0.8-4.8); Lymphocytes % 6.8 %; Mean Corpuscular Hemoglobin 29.7 pg (27-33); Mean Corpuscular Volume 92.9 fl (82-101); Mean Platelet Volume 9.3 fL (7.4-10.4); Monocytes # 2.4 10^3/uL (0.2-0.9); Monocytes % 10.2 %; Neutrophils # 19.39 10^3/uL (1.8-7.7); Neutrophils % 81.2 %; Nucleated Red Blood Cells % 0 %; Platelet Count 508 10^3/cmm (157-399); Red Blood Count 3.97 10^6/uL (3.85-5.65); Red Cell Distribution Width 13.9 % (12.1-15.1); White Blood Count 23.86 10^3/uL (3.29-11.43)
[2023-11-09 05:06] LABS: Alanine Aminotransferase 18 U/L (0-41); Albumin Level 3.3 g/dL (3.5-5.2); Alkaline Phosphatase 99 U/L (40-130); Aspartate Amino Transferase 18 U/L (0-40); Blood Urea Nitrogen 11 mg/dL (8-23); Calcium 7.8 mg/dL (8.5-10.5); Carbon Dioxide 20 mmol/L (22-29); Chloride 96 mmol/L (98-107); Creatinine Clr Calc Pharmacy 89.5233; Glucose 116 mg/dL (65-115); Osmolality Calculated 270 mOsm/kg (285-295); Sodium 130 mmol/L (136-145); Total Bilirubin 0.7 mg/dL (0.15-1.2); Total Protein 6.3 g/dL (6.6-8.7)
[2023-11-09 05:07] LABS: Anion Gap 18.5 (5-19); Potassium 4.5 mmol/L (3.5-5.1)
[2023-11-09 05:09] LABS: Magnesium 2.1 mg/dL (1.7-2.3)
[2023-11-09] MEDS: vancomycin 1,500 MG/300 ML PIGGYBACK 200 MG IV ×2 (06:21→17:05)
--- NOTE | 2023-11-09 09:00 | P.PN_ITS ---
Subjective 2 Subjective: The patient was having temp of 101.4 ?F yesterday. He was started on multiple antibiotics. He also was vomiting and nauseated. He had a long pulse of 5.8 seconds with third-degree heart block. Currently he is in intermittent high degree AV block. No chest pain . Continues to have generalized weakness and bodyaches. He was found to have markedly elevated CRP of 99.7 Medications: Medication Review Details: Current Medications Acetaminophen (Acetaminophen 325 Mg Tablet) 650 mg PO Q6H PRN PRN Reason: Mild/Mod Pain Or Temp >/= 101 Last Admin: 11/08/23 21:25 Dose: 650 mg Heparin Sodium (Porcine) (Heparin 5,000 Unit/Ml Inj 1 Ml) 5,000 unit SUBCUT Q12H LJ Last Admin: 11/09/23 03:57 Dose: 5,000 unit Ceftriaxone Sodium 2,000 mg/ (Sodium Chloride) 50 mls @ 100 mls/hr IV Q24H JL; Protocol Last Infusion: 11/08/23 15:34 Dose: Infused Azithromycin 500 mg/ Sodium (Chloride) 250 mls @ 250 mls/hr IV Q24H JL; Protocol Last Infusion: 11/08/23 17:49 Dose: Infused Doxycycline Hyclate 100 mg/ (Sodium Chloride) 100 mls @ 100 mls/hr IV Q12H JL; Protocol Last Infusion: 11/09/23 04:57 Dose: Infused Vancomycin/PEG/NADA/Lysine/Water (Vancocin) 1,500 mg in 300 mls @ 200 mls/hr IV Q12H JL Last Infusion: 11/09/23 08:19 Dose: Infused Metoclopramide HCl (Metoclopramide 5 Mg/Ml Sdv 2 Ml) 5 mg IVP Q6H PRN PRN Reason: NAUSEA AND VOMITING Last Admin: 11/08/23 19:45 Dose: 5 mg Ondansetron HCl (Ondansetron 2 Mg/Ml Sdv 2 Ml) 4 mg IVP Q8H PRN PRN Reason: vomiting, or N/V if npo Last Admin: 11/08/23 17:38 Dose: 4 mg Vitals/I&O/Wt Last Vital Signs Temp 98.1 F 11/09/23 08:50 Pulse 104 H 11/09/23 08:50 Resp 17 11/09/23 08:50 BP 107/63 11/09/23 08:50 Pulse Ox 94 11/09/23 08:50 O2 Del Method Room Air 11/09/23 08:33 11/08/23 11/09/23 11/09/23 22:59 06:59 14:59 Intake Total 696.667 / 5420.868 3169 / 2740.000 780 / 780 Output Total 1610 / 2085 800 / 2885 200 / 200 Balance -913.333 / -445.000 300 / -145.000 580 / 580 Weight last 48 hrs Weight 186 lb 14.4 oz Weight 186 lb 14.4 oz Weight 189 lb 3.2 oz Weight 191 lb Weight 185 lb Physical Exam 2 Narrative: GENERAL: The patient is alert and oriented times three. Not in any acute distress. HEENT: No significant pallor, icterus or lymphadenopathy.Oral cavity: There are no mucous membrane lesions. NECK: Trachea appears to be central. No masses noted. No JVD or thyromegaly appreciated. RESPIRATORY: Chest is symmetrical. No intercostals muscle retraction or any accessory muscle activation. There is no chest wall tenderness. Breath sounds are heard bilaterally. No rales or rhonchi heard. No evidence of any consolidation. BREASTS: Deferred. HEART: The heart sounds are normal. No S3 or S4. Short systolic murmur the left renal border. No pericardial rub ABDOMEN: No vessel pulsations or distention. No tenderness. No organomegaly appreciated. Bowel sounds are normally heard. : Deferred. RECTAL: Deferred. LYMPHATIC: No lymphadenopathy noted in the neck. EXTREMITIES: The below-knee areas are tender to touch bilaterally MUSCULOSKELETAL: No acute joint deformities or swelling SKIN: There are no significant rashes or ecchymosis NEUROPSYCHIATRIC: The patient is alert and oriented x3. Appears to be in a good mood. No tremors or rigidity noted. Data 11/09/23 03:58 11/09/23 03:58 Other Labs: Laboratory Last Values WBC 23.86 10^3/uL (3.29-11.43) H 11/09/23 03:58 RBC 3.97 10^6/uL (3.85-5.65) 11/09/23 03:58 Hgb 11.80 g/dL (11.27-16.99) 11/09/23 03:58 Hct 36.9 % (37-53) L 11/09/23 03:58 MCV 92.9 fl (82-101) 11/09/23 03:58 MCH 29.7 pg (27-33) 11/09/23 03:58 MCHC 32.0 g/dL (30-55) 11/09/23 03:58 RDW 13.9 % (12.1-15.1) 11/09/23 03:58 Plt Count 508 10^3/cmm (157-399) H 11/09/23 03:58 MPV 9.3 fL (7.4-10.4) 11/09/23 03:58 Neut % (Auto) 81.2 % 11/09/23 03:58 Lymph % (Auto) 6.8 % 11/09/23 03:58 Saunders % (Auto) 10.2 % 11/09/23 03:58 Eos % (Auto) 0.6 % 11/09/23 03:58 Baso % (Auto) 0.3 % 11/09/23 03:58 Neut # (Auto) 19.39 10^3/uL (1.8-7.7) H 11/09/23 03:58 Lymph # (Auto) 1.6 10^3/uL (0.8-4.8) 11/09/23 03:58 Saunders # (Auto) 2.4 10^3/uL (0.2-0.9) H 11/09/23 03:58 Eos # (Auto) 0.2 10^3/uL (0.0-0.8) 11/09/23 03:58 Baso # (Auto) 0.1 10^3/uL (0.0-0.1) 11/09/23 03:58 Nucleated RBC % (auto) 0 % 11/09/23 03:58 Nucleated RBCs # 0.0 /100WBC 11/09/23 03:58 ESR 71 mm/hr (0-10) H 11/08/23 03:59 PT 14.30 SECONDS (12.1-14.9) 11/07/23 11:08 INR 1.08 (0.8-1.2) 11/07/23 11:08 APTT 31.1 SECONDS (23.9-36.7) 11/07/23 11:08 Sodium 130 mmol/L (136-145) L 11/09/23 03:58 Potassium 4.5 mmol/L (3.5-5.1) 11/09/23 03:58 Chloride 96 mmol/L (98-107) L 11/09/23 03:58 Carbon Dioxide 20 mmol/L (22-29) L 11/09/23 03:58 Anion Gap 18.5 (5-19) 11/09/23 03:58 BUN 11 mg/dL (8-23) 11/09/23 03:58 Creatinine 0.9 mg/dL (0.7-1.2) 11/09/23 03:58 GFR Calculation 85.0 mL/min (90-130) L 11/09/23 03:58 Glucose 116 mg/dL (65-115) H 11/09/23 03:58 Calculated Osmolality 270 mOsm/kg (285-295) L 11/09/23 03:58 Lactic Acid 0.9 mmol/L (0.5-2.2) 11/08/23 15:05 Uric Acid 4.9 mg/dL (3.4-7.0) 11/08/23 11:16 Calcium 7.8 mg/dL (8.5-10.5) L 11/09/23 03:58 Magnesium 2.1 mg/dL (1.7-2.3) 11/09/23 03:58 Total Bilirubin 0.7 mg/dL (0.15-1.2) 11/09/23 03:58 AST 18 U/L (0-40) 11/09/23 03:58 ALT 18 U/L (0-41) 11/09/23 03:58 Alkaline Phosphatase 99 U/L (40-130) 11/09/23 03:58 Creatine Kinase 37 U/L (39-308) L 11/08/23 11:16 Troponin T Baseline 13 ng/L (0-15) 11/07/23 11:08 C-Reactive Protein 99.7 mg/L (0.0-4.9) H 11/08/23 11:16 C-React Prot High Sens 13.460 mg/dL (0.0-0.3) H 11/08/23 11:16 NT-Pro-B Natriuret Pep 2067 pg/mL (0-125) H 11/07/23 11:08 Total Protein 6.3 g/dL (6.6-8.7) L 11/09/23 03:58 Albumin 3.3 g/dL (3.5-5.2) L 11/09/23 03:58 Globulin 3.0 g/dL (1.3-4.6) 11/09/23 03:58 Procalcitonin 0.14 ng/mL (0-0.5) 11/08/23 11:16 TSH 1.78 uIU/mL (0.27-4.20) 11/07/23 11:08 Urine Color Straw (Yellow) 11/08/23 14:17 Urine Appearance Clear (CLEAR) 11/08/23 14:17 Urine pH 5 (5-7) 11/08/23 14:17 Ur Specific Sunburst 1.005 (1.005-1.030) 11/08/23 14:17 Urine Protein Neg (Negative) 11/08/23 14:17 Urine Glucose (UA) Norm (Normal) 11/08/23 14:17 Urine Ketones Negative (Negative) 11/08/23 14:17 Urine Blood 2+ (Negative) H 11/08/23 14:17 Urine Nitrate Negative (Negative) 11/08/23 14:17 Urine Bilirubin Neg (Negative) 11/08/23 14:17 Urine Urobilinogen Norm mg/dL (Negative) 11/08/23 14:17 Ur Leukocyte Esterase Negative (Negative) 11/08/23 14:17 Urine RBC Rare /hpf (0-2) 11/08/23 14:17 Urine WBC None /hpf (0-5) 11/08/23 14:17 Ur Squamous Epith Cells None /hpf (0-5) 11/08/23 14:17 Amorphous Sediment Not Reportable 11/08/23 14:17 Urine Bacteria Trace /hpf (NONE) 11/08/23 14:17 Fluid Crystals See path consult 11/08/23 17:10 Synovial Color Red (PALE YELLOW) 11/08/23 17:10 Synovial Appearance Bloody (CLEAR) 11/08/23 17:10 Synovial WBC 5826 /uL (0-150) H 11/08/23 17:10 Synovial RBC 28 10^3/uL (0-0) H 11/08/23 17:10 Synovial Mononuclear 0.777 10^3/uL 11/08/23 17:10 Synov Polynuclear WBCs 5.049 10^3/uL 11/08/23 17:10 Synovial Other Cells Not Reportable 11/08/23 17:10 Synovial Polynuclear % 86.700 % 11/08/23 17:10 Synovial Mononuclear % 13.300 % 11/08/23 17:10 Path Cons w/Slide Yes 11/08/23 17:10 Micro: Microbiology 11/08/23 11:16 Blood Culture - Preliminary Blood SPECIMEN COLLECTED 11/08/23 11:19 Blood Culture - Preliminary Blood SPECIMEN COLLECTED Other data: Echocardiogram on 11/08/2023 Normal left ventricular size and systolic function, EF 65%. No regional wall motion abnormalities. Mild-moderate mitral valve regurgitation. Trace to mild tricuspid valve regurgitation. There is no pericardial effusion. There are no intracardiac masses. Estimated pulmonary artery peak systolic pressure 42 mmHg No similar previous studies are available for comparison A&P Assessment and plan (1) Bradycardia: Patient has intermittent third-degree AV block and A-V dissociation. The etiology is unclear. The ventricular rate is ranging area from 47 to 96 bpm. He seems to have some inflammatory process going on. (2) Congestive heart failure: Patient has some features of diastolic heart failure. The LV systolic function is normal by echocardiogram. May consider doing a cardiac catheterization to further evaluate the coronary status, once the infection is appropriately treated. Qualifiers: Heart failure chronicity: acute Heart failure type: diastolic Qualified Code(s): I50.31 - Acute diastolic (congestive) heart failure (3) Low grade fever: According the patient and his , he been having intermittent low-grade fever for a month and a half. Most likely he may have an infectious or inflammatory process. Currently he is on multiple antibiotics. (4) Fever with leukocytosis and leukocyte count greater than or equal to 20,000: The white cell count is keep going up. Patient has poor dental hygiene. We may have to consider endocarditis (5) Bilateral leg pain: Patient seems to have hypersensitive skin of the lower extremity. The features may suggest some form of neuropathy. Plan The culture results are pending. Possible infectious disease consult in the morning. I also may consider DAVIDSON Based on the clinical progress, further management decisions will be made Attestations 2 Medical Necessity Statement*: Patient requires continued hospital stay for close monitoring and further management Coding Level of Care Code 69603 Diagnoses Bradycardia R00.1 Acute diastolic congestive heart failure I50.31 Heart failure chronicity: acute Heart failure type: diastolic Low grade fever R50.9 Fever with leukocytosis and leukocyte count greater than or equal to 20,000 D72.829 Bilateral leg pain M79.604; M79.605
[2023-11-09] MEDS: ibuprofen 200 mg Tablet 600 MG PO (10:39)
--- NOTE | 2023-11-09 10:43 | PC.NURSE ---
ibuprofen given to help patient relax by easing discomfort.
--- NOTE | 2023-11-09 13:20 | P.PN_ITS ---
Subjective 2 Subjective: Patient seen at bedside today. Overall, patient appears in better spirits today. Patient does state that he feels much better today as well. He states that the pain of his right ankle is subsided and is nowhere near the point that it was yesterday. Patient states he can passively move his ankle with no pain. He states that his left ankle has now started to become swollen as well. Denies any fever, chills, nausea, vomiting. Denies any feelings of malaise. He states that he has been up walking around without pain as well. Leukocytosis persists Vitals/I&O/Wt Last Vital Signs Temp 98.8 F 11/09/23 12:00 Pulse 91 11/09/23 12:00 Resp 15 11/09/23 12:00 BP 125/64 11/09/23 12:00 Pulse Ox 95 11/09/23 12:00 O2 Del Method Room Air 11/09/23 08:33 11/08/23 11/09/23 11/09/23 22:59 06:59 14:59 Intake Total 696.667 / 2823.804 7787 / 2740.000 780 / 780 Output Total 1610 / 2085 800 / 2885 700 / 700 Balance -913.333 / -445.000 300 / -145.000 80 / 80 Weight last 48 hrs Weight 186 lb 14.4 oz Weight 186 lb 14.4 oz Weight 189 lb 3.2 oz Weight 191 lb Physical Exam 2 Narrative: BELOW IS A FOCUSED LOWER EXTREMITY EXAM GENERAL: A&O x 3 VASCULAR: DP/PT pulses palpable 2/4 with CFT intact, <3seconds to distal digits. Pulses are audibly, strongly biphasic on hand-held Doppler at bedside. Edema to right ankle present but lessened from yesterday. New onset edema to left ankle DERMATOLOGICAL: Bilateral lower extremities are warm to touch. Bilateral ankles now appear erythematous and edematous. No underlying fluctuance or signs of deep space abscess MUSCULOSKELETAL: No pain to palpation of right ankle or left ankle at today's visit. No pain with range of motion of right ankle joint. No crepitus with range of motion of right ankle joint. Left ankle joint is free from pain on physical exam as well. NEUROLOGICAL: Neurological sensation to the affected foot and ankle is present through L4-S1 dermatomes with no hyper/hypoesthesias, negative Tinel or Valleix's sign IMAGING: CT scan right ankle personally interpreted by me. No fluid accumulation or appreciable abscess. No evidence of osteomyelitis. Data 11/09/23 03:58 11/09/23 03:58 Micro: Microbiology 11/08/23 17:40 Gram Stain - Final Ankle - Right 11/08/23 11:16 Blood Culture - Preliminary Blood NEGATIVE TO DATE 11/08/23 11:19 Blood Culture - Preliminary Blood NEGATIVE TO DATE A&P Assessment and plan (1) Pain in right ankle: (2) Leukocytosis: Qualifiers: Leukocytosis type: unspecified Qualified Code(s): D72.829 - Elevated white blood cell count, unspecified Plan -Right ankle pain and inflammation. -Labs and vitals reviewed -WBC 20.5--> 23.9 -ESR 71 -CRP 99.7 -VSS -Cultures: Blood cultures pending. Right ankle synovial culture pending--Gram stain: No organisms identified on Gram stain -Cytology: Right ankle fluid analysis revealed synovial WBC 5826/uL. Fluid crystals: Pending -Tick panel: Pending -Abx: Vanco/Rocephin -Diet: Okay for diet from podiatry standpoint -Status post right ankle arthrocentesis. Cell count of right ankle synovial fluid showed 5826 / uL. Based on the cell count and presentation of synovial fluid, negative Gram stain and patient's improvement clinically, now with new onset erythema and edema to left ankle, septic right ankle joint unlikely. We will continue to monitor fluid cultures and pathology crystal analysis. Continue workup for migratory arthritis. Continue with order for MRI right ankle with and without contrast. Consider alpha gal workup in addition to tick panel. -Pain Mgmt: Per admitting physician -Continue current Abx therapy until ID and Sensitivity results -Trend labs -Discharge plan: To be determined -Podiatry will continue to round on patient daily and provide recommendations Attestations 2 Medical Necessity Statement*: See hospitalist note Coding Level of Care Code Acute Code for Chg Fwd Diagnoses Pain in right ankle M25.571 Leukocytosis D72.829 Leukocytosis type: unspecified
[2023-11-09] MEDS: ondansetron 2 mg/ML SDV 2 mL 4 MG IVP (13:52)
[2023-11-09] MEDS: cefTRIAXone 2,000 MG in sodium chloride 0.9% (plus) 50 ML 100 MG IV (13:52)
[2023-11-09] MEDS: azithromycin 500 MG in sodium chloride 0.9% 250 ML 250 MG IV (13:52)
[2023-11-09] MEDS: doxycycline 100 MG in sodium chloride 0.9% (plus) 100 ML 200 MG IV (15:57)
--- NOTE | 2023-11-09 21:05 | P.PN_ITS ---
Subjective 2 Subjective: He is doing slightly better today. Fever curve with improvement. Aches and pains of lower legs with some improvement. Vitals/I&O/Wt Last Vital Signs Temp 97.8 F 11/09/23 17:45 Pulse 88 11/09/23 17:45 Resp 26 H 11/09/23 17:45 BP 127/63 11/09/23 17:45 Pulse Ox 94 11/09/23 17:45 O2 Del Method Room Air 11/09/23 08:33 11/09/23 11/09/23 11/09/23 06:59 14:59 22:59 Intake Total 1100 / 2740.000 2070 / 2070 650 / 2720 Output Total 800 / 2885 910 / 910 300 / 1210 Balance 300 / -309.692 8994 / 1160 350 / 1510 Weight last 48 hrs Weight 84.776 kg Weight 84.776 kg Weight 85.82 kg Physical Exam 2 Narrative: Accompanied by his Const: COMMON NORMALS: patient oriented x3 and alert GENERAL APPEARANCE: c ooperative ORIENTATION/CONSCIOUSNESS: Yes awake HENMT: COMMON NORMALS: oropharynx normal Neck/C-Spine: COMMON NORMALS: no JVD Resp: COMMON NORMALS: normal respiratory effort and clear to auscultation bilaterally AUSCULTATION: clear to auscultation bilaterally Cardio: COMMON NORMALS: no JVD, regular rhythm, S1 normal heart sound present, S2 normal heart sound present and No murmurs present (Cardio) RATE: b radycardic RHYTHM: regular rhythm HEART SOUNDS: S1 normal heart sound present and S2 normal heart sound present GI: COMMON NORMALS: Normal to inspection, nondistended, normoactive bowel sounds present, Soft to palpation and non-tender PALPATION: Yes Soft to palpation Extremity: COMMON NORMALS: no joint enlargement and no pedal edema OTHER: Warmth and swelling of the right foot, right ankle. No erythema. Definitely swollen compared to the left. There is moderate to severe pain on PROM of the foot and right ankle. Moderate pain with PROM of the right knee. No swelling or erythema at the right knee. Milder pain with PROM of the left foot, ankle and knee. No erythema on either side. Knees are also not noted to have any swelling or erythema around them. Neuro: COMMON NORMALS: patient oriented x3 and moves all extremities S ENSORIUM/ORIENTATION: Yes alert Skin: COMMON NORMALS: no rashes or lesions noted GENERAL SKIN EXAM: no rashes or lesions noted Data 11/09/23 03:58 11/09/23 03:58 Micro: Microbiology 11/08/23 17:40 Gram Stain - Final Ankle - Right 11/08/23 11:16 Blood Culture - Preliminary Blood NEGATIVE TO DATE 11/08/23 11:19 Blood Culture - Preliminary Blood NEGATIVE TO DATE A&P Assessment and plan (1) SIRS (systemic inflammatory response syndrome): Had several discussions with him on first visit on second visit, discussed with band log mill and carriage operator, reviewed vitals, CBC, CMP, magnesium, blood culture, synovial fluid analysis, synovial fluid culture, discussed with derrick boat lever operator. Synovial fluid with 5800 cells, PMNs predominantly 86%, as per discussion with specialist, patient, Sandraurgius level of WBC does not usually denote septic arthritis of bacterial etiology, however, as discussed with him his picture is also complicated as he had received partial treatment with doxycycline for 1 week. Discussed again consideration of other etiologies, differential diagnosis, discussed consideration of possibility of sepsis, septic arthritis, partially treated with doxycycline, unknown source, discussed on second visit consideration also dental sources as he has quite poor dentition, several teeth are broken and/or ground down, with caries, additionally front teeth with significant plaque which he states had left sometimes on for protective reasons . Seems he otherwise would get sensitivity with his teeth. Discussed concern regarding possible entry of bacteria, possibility of endocarditis, septic embolization including septic arthritis, possibility of pulmonary otherwise possible pneumonia as a source. Discussed with cardiology, and patient, he is agreeable for further consideration of DAVIDSON. MRI of the right foot and ankle is pending. Additionally as per discussion with him all risk and benefits he is agreeable to also assessed with contrast-enhanced CT of the neck to assess for any periodontal abscess as a possible source. Blood cultures so far is not growing anything. His symptoms do appear to be improving with treatment, so far afebrile today. Subjectively feeling better. ESR and CRP are quite elevated. Another possibility discussed with him possibly Lyme or other tickborne illness, has been restarted on doxycycline in addition to ceftriaxone. Discussed possibility of Lyme carditis, although as per discussion with cardiology usually may be accompanied with troponin elevation, troponin was normal, however, he has had a number of tick bites recently, and having a new heart block. His heart rate is by the way also improved with treatment. Did have a 5.7-second pause yesterday with vomiting, discussed considerations with cardiology and patient, for now we will hold off on DAVIDSON arrangement immediately, will reassess heart rates for stability so as to avoid additional pauses/bradycardia during DAVIDSON. Tick panel is pending. Discussed other consideration possibly inflammatory/crystal arthropathy, possibly pseudogout versus gout. Pathology is pending. Systemic uric acid was negative. Infectious disease provider is Not on currently, but in case becoming available we will try to arrange a consultation as well. Discussed with him also follow-up with ID in clinic. (2) Pain in right ankle: As above. (3) Foot pain: As above. (4) Bradycardia: Episode of pause of 5.7 seconds with episode of vomiting. Continue Zofran as needed. Cardiology notified. Maintain pacer leads as per discussion with nursing staff. Otherwise today newly having some episodes of tachycardia, possibly related to SIRS versus sepsis as above. Discussed with cardiology, continue to monitor heart rates. Continue consideration of whether pacemaker may or may not be needed. Discussed with him with his symptoms, recent tick bite, consideration of possibility of Lyme carditis. Restarted on antibiotics. Reviewed echocardiogram, normal ejection fraction, no regional wall motion abnormality. Mild to moderate MVR. Trace to mild TVR. No effusion. No intracardiac masses. Estimated systolic peak pulmonary artery pressure 42 mmHg. (5) Junctional rhythm: As above. (6) Leukocytosis: As above. NT-proBNP with elevation 2066 Qualifiers: Leukocytosis type: unspecified Qualified Code(s): D72.829 - Elevated white blood cell count, unspecified (7) Bilateral leg pain: As above. With oligoarthritis as above. Requested CK, reviewed, normal. No significant calf or proximal swelling, erythema to suggest DVT. Plan Atelectasis: On chest x-ray. Requested incentive spirometer Attestations 2 Medical Necessity Statement*: Continue admission for assessment of management of SIRS, possible sepsis, possible septic embolic disease, possible endocarditis, and gentleman with recent pneumonia, partial treatment, partial treatment of possible tickborne febrile illness, possible Lyme carditis, new heart block, and gentleman with poor dental health, and additional comorbidities as above. and High Time for a total of 85 minutes, includes reviewing past or interval history, examining/interviewing patient, placing orders, counseling patient/family/other support, updating patient/family/other support, discussing plan of care with staff, communicating with other healthcare providers, documenting encounter and coordinating care Diagnoses SIRS (systemic inflammatory response syndrome) R65.10 Pain in right ankle M25.571 Foot pain M79.673 Bradycardia R00.1 Junctional rhythm I49.8 Leukocytosis D72.829 Leukocytosis type: unspecified Bilateral leg pain M79.604; M79.605
[2023-11-10] VITALS (8 sets, daily range): BP systolic 127–144; BP diastolic 64–76; PULSE 75–91; RESP 15–25; TEMP 36.6–37.1; O2SAT 92–96
[2023-11-10] MEDS: doxycycline 100 MG in sodium chloride 0.9% (plus) 100 ML IV (04:12)
[2023-11-10] MEDS: heparin 5,000 unit/mL INJ 1 mL 5000 UNIT SUBCUT ×2 (04:12→16:35)
[2023-11-10 04:41] LABS: Basophils # 0.1 10^3/uL (0.0-0.1); Basophils % 0.3 %; Eosinophils # 0.2 10^3/uL (0.0-0.8); Eosinophils % 1.3 %; Hematocrit 33.7 % (37-53); Lymphocytes # 1.4 10^3/uL (0.8-4.8); Lymphocytes % 7.6 %; Mean Corpuscular HGB Conc 32.9 g/dL (30-55); Mean Corpuscular Hemoglobin 30.1 pg (27-33); Mean Corpuscular Volume 91.3 fl (82-101); Mean Platelet Volume 8.8 fL (7.4-10.4); Monocytes # 1.4 10^3/uL (0.2-0.9); Monocytes % 7.6 %; Neutrophils # 15.03 10^3/uL (1.8-7.7); Neutrophils % 82.4 %; Nucleated Red Blood Cells % 0 %; Platelet Count 452 10^3/cmm (157-399); Red Blood Count 3.69 10^6/uL (3.85-5.65); Red Cell Distribution Width 13.5 % (12.1-15.1); White Blood Count 18.22 10^3/uL (3.29-11.43)
[2023-11-10 05:02] LABS: Vancomycin Trough 11.1 ug/mL (10-15)
[2023-11-10 05:03] LABS: Magnesium 1.9 mg/dL (1.7-2.3)
[2023-11-10 05:04] LABS: Alanine Aminotransferase 28 U/L (0-41); Alkaline Phosphatase 100 U/L (40-130); Anion Gap 15.2 (5-19); Aspartate Amino Transferase 28 U/L (0-40); Blood Urea Nitrogen 13 mg/dL (8-23); Calcium 7.7 mg/dL (8.5-10.5); Carbon Dioxide 21 mmol/L (22-29); Chloride 102 mmol/L (98-107); Creatinine Clr Calc Pharmacy 100.4984; Globulin 2.8 g/dL (1.3-4.6); Glomerular Filtration Rate 97.3 mL/min (90-130); Glucose 123 mg/dL (65-115); Osmolality Calculated 279 mOsm/kg (285-295); Potassium 4.2 mmol/L (3.5-5.1); Sodium 134 mmol/L (136-145); Total Bilirubin 0.3 mg/dL (0.15-1.2); Total Protein 5.8 g/dL (6.6-8.7)
[2023-11-10] MEDS: vancomycin 1,500 MG/300 ML PIGGYBACK 200 MG IV ×2 (05:27→18:23)
--- NOTE | 2023-11-10 06:00 | MR_ITS ---
WS: [id number] MRI RIGHT FOOT WITH AND WITHOUT CONTRAST. COMPARISON: CT 11/08/2023 Multiplanar, multisequence imaging is performed with and without contrast. MultiHance 18 mL. Moderate amount of soft tissue edema surrounding the entire foot. There is no focal fluid in the subc utaneous soft tissue or abnormal enhancement to suggest an abscess. No marrow edema or fracture. There is slightly increased amount of fluid surrounding the first metatarsal head. This may represent a mild bursitis. There is a bipartite medial sesamoid. There is mild diffuse edema but no focal ronnie a. No acute fracture. The flexor hallucis longus tendon at the level of the sesamoids is normal. Dist al peroneal brevis and longus are appropriate. No erosions in the first metatarsal head. MR/MR foot RT wo/w con [id number] IMPRESSION: 1. No erosions in the first metatarsal head or evidence for gout. 2. Mild bursitis involving the first metatarsophalangeal joint. 3. Bipartite medial sesamoid at the first metatarsal head. 4. No marrow edema or fracture. No osteomyelitis.
--- NOTE | 2023-11-10 06:00 | MR_ITS ---
WS: [id number] MRI RIGHT ANKLE WITH AND WITHOUT CONTRAST. COMPARISON: CT 11/08/2023 Multiplanar, multisequence imaging is performed with and without contrast. MultiHance 18 mL. Moderate diffuse soft tissue edema. The edema begins in the lower extremity and extends into the ankl e and foot. This is more of the diffuse edema than focal. There is no fluid collection that is discre te or enhancing. No osteomyelitis. There is very minimal linear increased signal in the Achilles tendon. No tear. Small amount of fluid in the retrocalcaneal bursa. Small plantar spur. Plantar fascia and aponeurosis are normal. The subta lar joint is normal. Peroneal brevis and longus tendons are normal. Extensor and flexor tendon sheath s are normal. There is no muscle atrophy or edema. Anterior and posterior talofibular ligaments are n ormal. Deltoid ligament is normal. MR/MR ankle RT wo/w con [id number] IMPRESSION: 1. Diffuse soft tissue edema. 2. No fluid collections or abscess. 3. No osteomyelitis. 4. Very minimal Achilles tendinopathy. No tear or enlargement. 5. Very minimal retrocalcaneal bursitis. 6. Small calcaneal spur.
--- NOTE | 2023-11-10 09:16 | PC.CHAP ---
Pastoral Care Encounter/Spiritual Assessment Type of Contact [] Declined equity sales assistant visit [] Patient/Family/Request visit [] Outpatient visit [] Follow-up visit [] Physician referral [] Code/Alert [x] Routine visit [] Staff referral [] Actively dying [] Patient sleeping [] Family support [] [] Out of room [] Palliative care [] [] Receiving care in room [] Pre-surgical visit [] Trauma [] Long length of stay [] ICU visit [] Other: Relational/Emotional Strength [] Patient feels connected with others/family/visitors/staff [] Distress [] Loneliness/isolation [] Abandonment Spirituality of Patient [x] Person of Yessica [] Attends Mu-Ism of their Yessica [x] Believes in Prayer [] Reads Bible or Jain materials [] There are Spiritual issues to be addressed Radio Installer Interventions [x] Prayer [x] Active listening [] Non-anxious presence [] Spiritual/emotional support [] Crisis/trauma care [] Spiritual counseling [] Bereavement support [] Provided bereavement packet [] Provided Bible/devotional materials [] Provided toy/stuffed animal, coloring book to patient or family member [] Provided Communion [] Anointing/[place] [] Salvation [x] Completed spiritual assessment [] Other: Impact on Illness or Injury [] Angry [] Fearful [] Anxious [] Often cries [] Exhaustion [] Unable to work [] Unable to attend anglican [] Unable to walk/stand [] Unable to read [] Unable to drive [] Unable to eat/drink [] Unable to sleep [] Unable to be with family [] Patient intubated [] Other: Summary Time spent with patient 5 min
--- NOTE | 2023-11-10 09:30 | CT_ITS ---
WS: [id number] CT NECK TECHNIQUE: Contrast-enhanced CT of the neck with coronal and sagittal reformatted images. CLINICAL INFORMATION: Assess maxilla and mandible for any periodontal abscess COMPARISON: None. DLP: 289.[address] scans at [facility] use at least one of these dose optimization techniques: automated e xposure control; mA and/or kV adjustment per patient size (includes targeted exams where dose is matc hed to clinical indication); or iterative reconstruction. FINDINGS: RIGHT maxillary sinusitis with air-fluid level. Paranasal sinuses are otherwise well aerated. Mastoid air cells are well aerated. Normal posterior nasopharynx and parapharyngeal fat. Few small thyroid n odules LEFT greater than RIGHT. Emphysematous changes in the lung apices. Fibrosis in the lung apices . Straightening of the normal cervical lordosis with moderate spondylitic changes. Slight anterolisthes is C2 on C3. Mild central canal stenosis C3-C4. A few partially visualized prominent anterior mediast inal and thoracic inlet lymph nodes nonspecific but may be reactive. No evidence of periodontal fluid collection or abscess. Poor dentition. Parotid glands are normal. Normal submandibular glands. No ev idence of supraglottic or glottic mass. Normal subglottic airway. Bovine arch. Proximal subclavian ar teries are patent. CT/CT neck w con* [id number] IMPRESSION: 1. No evidence of periodontal abscess or fluid collection. Poor dentition. 2. RIGHT maxillary sinusitis with air-fluid level. 3. Small thyroid nodules LEFT greater than RIGHT. 4. Moderate spondylitic changes cervical spine with mild central canal stenosi s C3-C4.
[2023-11-10] MEDS: iohexol 350 mg/mL 500 mL Btl (per mL) IV ×2 (09:39→22:43)
[2023-11-10] MEDS: gadobenate dimeglumine 20 mL vial IV (12:25)
--- NOTE | 2023-11-10 12:55 | ECG_ITS ---
[facility] Test Date: 2023-11-10 Pat Name: Oliver Pruett Department: Room: 106 Gender: Male Environmental Emergencies Planner: : 1960 Requested By: Charles Carrillo Order Number: [id number] Judson MD: Griselda Herrera M.D. Measurements Intervals [place] Rate: 85 P: -5 MS: 257 QRS: 60 QRSD: 81 T: 60 QT: 339 QTc: 405 Interpretive Statements SINUS RHYTHM WITH FIRST DEGREE AV BLOCK Compared to ECG 11/07/2023 10:57:56 First degree AV block now present Myocardial infarct finding no longer present Electronically Signed On 11-10-2023 17:57:28 CDT by Griselda Herrera M.D. [id number]
--- NOTE | 2023-11-10 14:48 | PM.PN ---
Subjective Subjective: Hospital course, labs appreciated. Has remained afebrile 24 hours. Speaking with spouse at bedside. States he is feeling better than before. Has remained hemodynamically stable. Denies any new complaints including nausea, ting, headache or difficulty in breathing. Vitals/I&O/Wt Last Vital Signs Temp 98.8 F 11/10/23 12:00 Pulse 87 11/10/23 12:00 Resp 22 H 11/10/23 12:00 BP 144/76 11/10/23 12:00 Pulse Ox 96 11/10/23 12:00 O2 Del Method Room Air 11/10/23 12:00 11/09/23 11/10/23 11/10/23 22:59 06:59 14:59 Intake Total 650 / 2720 1300 / 4020 740 / 740 Output Total 650 / 1560 650 / 2210 725 / 725 Balance 0 / 1160 650 / 1810 15 / 15 Weight last 48 hrs Weight 84.368 kg Weight 84.776 kg Weight 84.776 kg Physical Exam Narrative: Accompanied by his Const: COMMON NORMALS: patient oriented x3 and alert GENERAL APPEARANCE: cooperative ORIENTATION/CONSCIOUSNESS: Yes awake HENMT: COMMON NORMALS: oropharynx normal Neck/C-Spine: COMMON NORMALS: no JVD Resp: COMMON NORMALS: normal respiratory effort and clear to auscultation bilaterally AUSCULTATION: clear to auscultation bilaterally Cardio: COMMON NORMALS: no JVD, regular rhythm, S1 normal heart sound present, S2 normal heart sound present and No murmurs present (Cardio) RATE: bradycardic RHYTHM: regular rhythm HEART SOUNDS: S1 normal heart sound present and S2 normal heart sound present GI: COMMON NORMALS: Normal to inspection, nondistended, normoactive bowel sounds present, Soft to palpation and non-tender PALPATION: Yes Soft to palpation Extremity: COMMON NORMALS: no joint enlargement and no pedal edema Neuro: COMMON NORMALS: patient oriented x3 and moves all extremities SENSORIUM/ORIENTATION: Yes alert Skin: COMMON NORMALS: no rashes or lesions noted GENERAL SKIN EXAM: no rashes or lesions noted Data 11/10/23 04:31 11/10/23 04:31 Micro: Microbiology 11/10/23 10:45 Legionella Urinary Antigen - Final Urine,Voided 11/10/23 10:45 Bacterial Antigens - Final Urine,Voided 11/08/23 17:40 Gram Stain - Final Ankle - Right Body Fluid Culture - Preliminary 11/08/23 11:16 Blood Culture - Preliminary Blood NEGATIVE TO DATE 11/08/23 11:19 Blood Culture - Preliminary Blood NEGATIVE TO DATE A&P Assessment and plan (1) Bradycardia: Episode of bradycardia during admission along with pauses up to 5.7 to 6 seconds while patient was vomiting. Repeat EKG. Monitor [place] levels. Zofran as needed. Telemetry. Echocardiogram shows normal ejection fraction, no regional wall motion abnormality. Mild to moderate MVR. Trace to mild TVR. No effusion. No intracardiac masses. Estimated systolic peak pulmonary artery pressure 42 mmHg. (2) Junctional rhythm: As above. (3) SIRS (systemic inflammatory response syndrome): Given the history of being on antibiotic for a week prior to admission with oral doxycycline, patient being on room air, hemodynamically stable, afebrile for last 48 hours and last seizure on 11/07 at 100 Fahrenheit, synovitis fluid analysis from right ankle with vitamin 5800 cc with Gram stain negative, negative CT neck with no dairy and food laboratory assistant abscess or collection concerns of systemic infection for now low. Blood culture & synovial fluid cultures so far negative. Persistent leukocytosis most likely in setting of steroids as an outpatient. MRI of the foot done but results awaited. Endocarditis less likely as patient blood cultures have remained negative no blood cultures and patient will be less reliable as he was on antibiotic as an outpatient. DAVIDSON for now being avoided given patient braiding down during vomiting with high concerns for vasovagal. Appreciated elevated ESR and CRP. Check MRSA swab. Continue with azithromycin to finish a 3-day course. Vancomycin to be continued for now. If blood cultures remain negative and patient remained hemodynamically stable and afebrile will plan to discontinue vancomycin within next 24 to 48 hours. High consideration for Lyme's carditis given the clinical picture. Check Lyme IgG and IgM antibodies Will monitor [place] levels. Will plan to continue IV ceftriaxone and oral doxycycline for overall 21 days. If patient remains afebrile for next 24 hours we will plan for PICC line placement. (4) Pain in right ankle: Appreciate podiatry recommendations. Post joint aspiration. Appreciate fluid results. Plan for MRI today. Cannot rule out crystal arthropathy. (5) Foot pain: As above. (6) Leukocytosis: As above. Check peripheral smear Qualifiers: Leukocytosis type: unspecified Qualified Code(s): D72.829 - Elevated white blood cell count, unspecified (7) Bilateral leg pain: As above. With oligoarthritis as above. Requested CK, reviewed, normal. No significant calf or proximal swelling, erythema to suggest DVT. (8) Lyme carditis: Plan Atelectasis: On chest x-ray. Requested incentive spirometer Cardiac diet Famotidine for PUD prophylaxis Heparin for DVT prophylaxis Attestations Medical Necessity Statement*: Continue admission required in setting of bradycardia with AV block. 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
[2023-11-10 15:13] LABS: Chol HDL Ratio 4.19 mg/dL (1.0-5.00); Cholesterol 109 mg/dL (0-200); HDL Cholesterol 26 mg/dL (60-100); Iron 13 ug/dL (59-158); LDL Cholesterol Calculated 65 mg/dL (50-129); Total Iron Binding Capacity 185 mcg/dl; Triglycerides 90 mg/dL (0-150); Unsaturated Iron Binding 172 ug/dL (112-347); VLDL Cholestrol Calculation 18 mg/dL (0-30)
[2023-11-10 15:29] LABS: Procalcitonin 0.46 ng/mL (0-0.5); Vitamin B12 421 pg/mL (232-1245)
[2023-11-10 16:10] LABS: Estmated Average Glucose 123; Hemoglobin A1C 5.9 % (4.0-6.0)
[2023-11-10] MEDS: azithromycin 500 MG in sodium chloride 0.9% 250 ML 250 MG IV (16:35)
[2023-11-10] MEDS: cefTRIAXone 2,000 MG in sodium chloride 0.9% (plus) 50 ML 100 MG IV (16:35)
[2023-11-10 16:45] LABS: Lyme AB Screen <0.90 index
[2023-11-10] MEDS: magnesium hydroxide 30 mL UDC PO (16:45)
--- NOTE | 2023-11-10 17:06 | P.PN_ITS ---
Subjective 2 Subjective: Patient is afebrile today. White cell count seems to be coming down. Still has generalized weakness/fatigue. Medications: Medication Review Details: Current Medications Acetaminophen (Acetaminophen 325 Mg Tablet) 650 mg PO Q6H PRN PRN Reason: Mild/Mod Pain Or Temp >/= 101 Last Admin: 11/08/23 21:25 Dose: 650 mg Doxycycline Monohydrate (Doxycycline 100 Mg Tablet) 100 mg PO BID [facility]; Protocol Ferrous Gluconate (Ferrous Gluconate 324 Mg Tablet) 324 mg PO EVERY OTHER DAY [facility] Heparin Sodium (Porcine) (Heparin 5,000 Unit/Ml Inj 1 Ml) 5,000 unit SUBCUT Q12H [facility] Last Admin: 11/10/23 16:35 Dose: 5,000 unit Ceftriaxone Sodium 2,000 mg/ (Sodium Chloride) 50 mls @ 100 mls/hr IV Q24H [facility]; Protocol Last Admin: 11/10/23 16:35 Dose: 100 mls/hr Azithromycin 500 mg/ Sodium (Chloride) 250 mls @ 250 mls/hr IV Q24H [facility]; Protocol Stop: 11/11/23 14:29 Last Admin: 11/10/23 16:35 Dose: 250 mls/hr Vancomycin/PEG/NADA/Lysine/Water (Vancocin) 1,500 mg in 300 mls @ 200 mls/hr IV Q12H [facility] Last Admin: 11/10/23 05:27 Dose: 200 mls/hr Ibuprofen (Ibuprofen 200 Mg Tablet) 600 mg PO Q6H PRN PRN Reason: MODERATE PAIN Last Admin: 11/09/23 10:39 Dose: 600 mg Magnesium Hydroxide (Magnesium Hydroxide 30 Ml Udc) 30 ml PO DAILY PRN PRN Reason: CONSTIPATION Last Admin: 11/10/23 16:45 Dose: 30 ml Metoclopramide HCl (Metoclopramide 5 Mg/Ml Sdv 2 Ml) 5 mg IVP Q6H PRN PRN Reason: NAUSEA AND VOMITING Last Admin: 11/08/23 19:45 Dose: 5 mg Ondansetron HCl (Ondansetron 2 Mg/Ml Sdv 2 Ml) 4 mg IVP Q8H PRN PRN Reason: vomiting, or N/V if npo Last Admin: 11/09/23 13:52 Dose: 4 mg Vitals/I&O/Wt Last Vital Signs Temp 98.4 F 11/10/23 16:00 Pulse 87 11/10/23 16:00 Resp 21 H 11/10/23 16:00 BP 131/72 11/10/23 16:00 Pulse Ox 95 11/10/23 16:00 O2 Del Method Room Air 11/10/23 16:00 11/10/23 11/10/23 11/10/23 06:59 14:59 22:59 Intake Total 1300 / 4020 740 / 740 Output Total 650 / 2210 725 / 725 1100 / 1825 Balance 650 / 1810 15 / 15 -1100 / -1085 Weight last 48 hrs Weight 186 lb Weight 186 lb 14.4 oz Weight 186 lb 14.4 oz Physical Exam 2 Narrative: GENERAL: The patient is alert and oriented times three. Not in any acute distress. HEENT: No significant pallor, icterus or lymphadenopathy.Oral cavity: There are no mucous membrane lesions. NECK: Trachea appears to be central. No masses noted. No JVD or thyromegaly appreciated. RESPIRATORY: Chest is symmetrical. No intercostals muscle retraction or any accessory muscle activation. There is no chest wall tenderness. Breath sounds are heard bilaterally. No rales or rhonchi heard. No evidence of any consolidation. BREASTS: Deferred. HEART: The heart sounds are normal. No S3 or S4. No significant murmurs. No pericardial rub ABDOMEN: No vessel pulsations or distention. No tenderness. No organomegaly appreciated. Bowel sounds are normally heard. : Deferred. RECTAL: Deferred. LYMPHATIC: No lymphadenopathy noted in the neck. EXTREMITIES: No edema or cyanosis. No clubbing. MUSCULOSKELETAL: No acute joint deformities or swelling SKIN: There are no significant rashes or ecchymosis NEUROPSYCHIATRIC: The patient is alert and oriented x3. Appears to be in a good mood. No tremors or rigidity noted. Data 11/10/23 04:31 11/10/23 04:31 Other Labs: Laboratory Last Values WBC 18.22 10^3/uL (3.29-11.43) H 11/10/23 04:31 RBC 3.69 10^6/uL (3.85-5.65) L 11/10/23 04:31 Hgb 11.10 g/dL (11.27-16.99) L 11/10/23 04:31 Hct 33.7 % (37-53) L 11/10/23 04:31 MCV 91.3 fl (82-101) 11/10/23 04:31 MCH 30.1 pg (27-33) 11/10/23 04:31 MCHC 32.9 g/dL (30-55) 11/10/23 04:31 RDW 13.5 % (12.1-15.1) 11/10/23 04:31 Plt Count 452 10^3/cmm (157-399) H 11/10/23 04:31 MPV 8.8 fL (7.4-10.4) 11/10/23 04:31 Neut % (Auto) 82.4 % 11/10/23 04:31 Lymph % (Auto) 7.6 % 11/10/23 04:31 Meigs % (Auto) 7.6 % 11/10/23 04:31 Eos % (Auto) 1.3 % 11/10/23 04:31 Baso % (Auto) 0.3 % 11/10/23 04:31 Neut # (Auto) 15.03 10^3/uL (1.8-7.7) H 11/10/23 04:31 Lymph # (Auto) 1.4 10^3/uL (0.8-4.8) 11/10/23 04:31 Meigs # (Auto) 1.4 10^3/uL (0.2-0.9) H 11/10/23 04:31 Eos # (Auto) 0.2 10^3/uL (0.0-0.8) 11/10/23 04:31 Baso # (Auto) 0.1 10^3/uL (0.0-0.1) 11/10/23 04:31 Nucleated RBC % (auto) 0 % 11/10/23 04:31 Nucleated RBCs # 0.0 /100WBC 11/10/23 04:31 ESR 71 mm/hr (0-10) H 11/08/23 03:59 PT 14.30 SECONDS (12.1-14.9) 11/07/23 11:08 INR 1.08 (0.8-1.2) 11/07/23 11:08 APTT 31.1 SECONDS (23.9-36.7) 11/07/23 11:08 Sodium 134 mmol/L (136-145) L 11/10/23 04:31 Potassium 4.2 mmol/L (3.5-5.1) 11/10/23 04:31 Chloride 102 mmol/L (98-107) 11/10/23 04:31 Carbon Dioxide 21 mmol/L (22-29) L 11/10/23 04:31 Anion Gap 15.2 (5-19) 11/10/23 04:31 BUN 13 mg/dL (8-23) 11/10/23 04:31 Creatinine 0.8 mg/dL (0.7-1.2) 11/10/23 04:31 GFR Calculation 97.3 mL/min (90-130) 11/10/23 04:31 Glucose 123 mg/dL (65-115) H 11/10/23 04:31 Estimat Average Glucose 123 11/10/23 04:31 Hemoglobin A1c 5.9 % (4.0-6.0) 11/10/23 04:31 Calculated Osmolality 279 mOsm/kg (285-295) L 11/10/23 04:31 Lactic Acid 0.9 mmol/L (0.5-2.2) 11/08/23 15:05 Uric Acid 4.9 mg/dL (3.4-7.0) 11/08/23 11:16 Calcium 7.7 mg/dL (8.5-10.5) L 11/10/23 04:31 Magnesium 1.9 mg/dL (1.7-2.3) 11/10/23 04:31 Iron 13 ug/dL (59-158) L 11/10/23 04:31 TIBC 185 mcg/dl 11/10/23 04:31 % Saturation 7.0 % (20-50) L 11/10/23 04:31 Unsat Iron Binding 172 ug/dL (112-347) 11/10/23 04:31 Total Bilirubin 0.3 mg/dL (0.15-1.2) 11/10/23 04:31 AST 28 U/L (0-40) 11/10/23 04:31 ALT 28 U/L (0-41) 11/10/23 04:31 Alkaline Phosphatase 100 U/L (40-130) 11/10/23 04:31 Creatine Kinase 37 U/L (39-308) L 11/08/23 11:16 Troponin T Baseline 13 ng/L (0-15) 11/07/23 11:08 C-Reactive Protein 99.7 mg/L (0.0-4.9) H 11/08/23 11:16 C-React Prot High Sens 13.460 mg/dL (0.0-0.3) H 11/08/23 11:16 NT-Pro-B Natriuret Pep 2067 pg/mL (0-125) H 11/07/23 11:08 Total Protein 5.8 g/dL (6.6-8.7) L 11/10/23 04:31 Albumin 3.0 g/dL (3.5-5.2) L 11/10/23 04:31 Globulin 2.8 g/dL (1.3-4.6) 11/10/23 04:31 Triglycerides 90 mg/dL (0-150) 11/10/23 04:31 Cholesterol 109 mg/dL (0-200) 11/10/23 04:31 LDL Cholesterol, Calc 65 mg/dL (50-129) 11/10/23 04:31 Total VLDL Cholesterol 18 mg/dL (0-30) 11/10/23 04:31 HDL Cholesterol 26 mg/dL (60-100) L 11/10/23 04:31 Cholesterol/HDL Ratio 4.19 mg/dL (1.0-5.00) 11/10/23 04:31 Vitamin B12 421 pg/mL (232-1245) 11/10/23 04:31 Procalcitonin 0.46 ng/mL (0-0.5) 11/10/23 04:31 TSH 1.78 uIU/mL (0.27-4.20) 11/07/23 11:08 Urine Color Straw (Yellow) 11/08/23 14:17 Urine Appearance Clear (CLEAR) 11/08/23 14:17 Urine pH 5 (5-7) 11/08/23 14:17 Ur Specific Upperco 1.005 (1.005-1.030) 11/08/23 14:17 Urine Protein Neg (Negative) 11/08/23 14:17 Urine Glucose (UA) Norm (Normal) 11/08/23 14:17 Urine Ketones Negative (Negative) 11/08/23 14:17 Urine Blood 2+ (Negative) H 11/08/23 14:17 Urine Nitrate Negative (Negative) 11/08/23 14:17 Urine Bilirubin Neg (Negative) 11/08/23 14:17 Urine Urobilinogen Norm mg/dL (Negative) 11/08/23 14:17 Ur Leukocyte Esterase Negative (Negative) 11/08/23 14:17 Urine RBC Rare /hpf (0-2) 11/08/23 14:17 Urine WBC None /hpf (0-5) 11/08/23 14:17 Ur Squamous Epith Cells None /hpf (0-5) 11/08/23 14:17 Amorphous Sediment Not Reportable 11/08/23 14:17 Urine Bacteria Trace /hpf (NONE) 11/08/23 14:17 Fluid Crystals See path consult 11/08/23 17:10 Synovial Color Red (PALE YELLOW) 11/08/23 17:10 Synovial Appearance Bloody (CLEAR) 11/08/23 17:10 Synovial WBC 5826 /uL (0-150) H 11/08/23 17:10 Synovial RBC 28 10^3/uL (0-0) H 11/08/23 17:10 Synovial Mononuclear 0.777 10^3/uL 11/08/23 17:10 Synov Polynuclear WBCs 5.049 10^3/uL 11/08/23 17:10 Synovial Other Cells Not Reportable 11/08/23 17:10 Synovial Polynuclear % 86.700 % 11/08/23 17:10 Synovial Mononuclear % 13.300 % 11/08/23 17:10 Vancomycin Trough 11.1 ug/mL (10-15) 11/10/23 04:31 Lyme Ab (Western Blot) <0.90 index 11/08/23 17:30 Path Cons w/Slide Yes 11/08/23 17:10 Micro: Microbiology 11/10/23 10:45 Legionella Urinary Antigen - Final Urine,Voided 11/10/23 10:45 Bacterial Antigens - Final Urine,Voided 11/08/23 17:40 Gram Stain - Final Ankle - Right Body Fluid Culture - Preliminary A&P Assessment and plan (1) Bradycardia: Patient has sinus rhythm /sinus tachycardia and intermittent high degree AV block. The blood pressure seems to be stable. (2) Congestive heart failure: Patient has some features of diastolic heart failure. The LV systolic function is normal by echocardiogram. May consider doing a cardiac catheterization to further evaluate the coronary status, once the infection is appropriately treated. Qualifiers: Heart failure type: diastolic Heart failure chronicity: acute Qualified Code(s): I50.31 - Acute diastolic (congestive) heart failure (3) Low grade fever: Seems to be afebrile for last 24 hours. The white cell count also is coming down. (4) Fever with leukocytosis and leukocyte count greater than or equal to 20,000: White cell count seems to be coming down. All the blood cultures are negative so far. Need to discuss about the DAVIDSON. (5) Bilateral leg pain: The symptoms are fairly stable at this time. The MRI of the ankle revealed diffuse soft tissue swelling with no significant joint deformities or effusions Plan May continue on the antibiotic management as per the primary. Will discuss about the DAVIDSON with the primary attending. Attestations 2 Medical Necessity Statement*: Patient requires continued hospital stay for close monitoring and further management Coding Level of Care Code 30847 Diagnoses Bradycardia R00.1 Acute diastolic congestive heart failure I50.31 Heart failure type: diastolic Heart failure chronicity: acute Low grade fever R50.9 Fever with leukocytosis and leukocyte count greater than or equal to 20,000 D72.829 Bilateral leg pain M79.604; M79.605
[2023-11-10 18:11] LABS: Erythrocyte Sedimentation Rate 102 mm/hr (0-10); LAB Peripheral Smear Sent for Review
[2023-11-10] MEDS: doxycycline 100 mg Tablet PO (18:23)
[2023-11-10 18:31] LABS: C Reactive Protein 166.6 mg/L (0.0-4.9)
--- NOTE | 2023-11-10 21:39 | CTR_ITS ---
PROCEDURE INFORMATION: Exam: CT Lumbar Spine With Contrast Exam date and time: 11/10/2023 10:40 PM Age: 63 years old Clinical indication: Low back pain; Additional info: Possible discitis TECHNIQUE: Imaging protocol: Computed tomography of the lumbar spine with contrast. Radiation optimization: All CT scans at this facility use at least one of these dose optimization techniques: automated exposure control; mA and/or kV adjustment per patient size (includes targeted exams where dose is matched to clinical indication); or iterative reconstruction. Contrast material: OMNI 350; Contrast volume: 100 ml; Contrast route: INTRAVENOUS (IV); COMPARISON: CT abdomen pelvis w con* [id number] 11/10/2023 10:40 PM RADIATION DOSE METRICS: Total DLP (mGy-cm): 581 FINDINGS: Bones/joints: No acute appearing vertebral body compression deformity. Facet alignment is preserved. Multilevel lumbar spondylosis with disc degeneration facet arthropathy. Moderate to severe neural foraminal stenosis on the left at L4-L5 and L5-S1, and on the right at L3-L4. Multilevel [id number] neural foraminal stenoses. No high-grade spinal canal stenosis. Mild erosive change along the L2 inferior endplate. Soft tissues: No obvious prevertebral soft tissue inflammatory change. Dorsal paraspinal soft tissues are unremarkable. CT/CT lumbar spine w con [id number] IMPRESSION: No acute fracture. Mild erosive change along the L2 inferior endplate, may be degenerative, can also be seen with sequela of discitis/osteomyelitis. CT sensitivity for detection of acute discitis/osteomyelitis is limited, and if there is persistent high clinical suspicion, recommend MRI lumbar spine with and without IV contrast.
--- NOTE | 2023-11-10 21:39 | CTR_ITS ---
PROCEDURE INFORMATION: Exam: CT Abdomen And Pelvis With Contrast Exam date and time: 11/10/2023 10:40 PM Age: 63 years old Clinical indication: Abdominal pain; Additional info: Infectious source TECHNIQUE: Imaging protocol: Computed tomography of the abdomen and pelvis with contrast. Radiation optimization: All CT scans at this facility use at least one of these dose optimization techniques: automated exposure control; mA and/or kV adjustment per patient size (includes targeted exams where dose is matched to clinical indication); or iterative reconstruction. Contrast material: OMNI 350; Contrast volume: 100 ml; Contrast route: INTRAVENOUS (IV); COMPARISON: CT lumbar spine w con [id number] 11/10/2023 10:40 PM RADIATION DOSE METRICS: Total DLP (mGy-cm): 581 FINDINGS: Lungs: Pleural-based opacity in the posterior right lower lobe with some internal mineralization, most likely focus of rounded atelectasis. Liver: Subcentimeter too small to characterize hepatic hypodensity. Liver otherwise unremarkable. Gallbladder and bile ducts: No calcified gallstones, pericholecystic inflammatory change, or biliary ductal dilation. Pancreas: Pancreas is unremarkable. No main duct dilation. Spleen: Spleen is unremarkable. Adrenal glands: No nodules. Kidneys and ureters: No mass. No hydroureteronephrosis. No urinary tract calculi. Stomach and bowel: Fluid levels in the nondilated large and small bowel. No bowel obstruction. Appendix: No evidence of appendicitis. Intraperitoneal space: Unremarkable. No free air. No significant fluid collection. Vasculature: Moderate aortoiliac atherosclerosis. No aortic aneurysm. Lymph nodes: No enlarged lymph nodes. Urinary bladder: Unremarkable as visualized. Reproductive: Prostatomegaly. Bones/joints: No acute fracture. No aggressive osseous lesions. Lumbar spondylosis Soft tissues: Tiny fat containing right inguinal hernia. CT/CT abdomen pelvis w con* [id number] IMPRESSION: 1. Fluid levels in the nondilated large and small bowel, nonspecific, can be seen with enterocolitis in the appropriate clinical context.. 2. Pleural-based opacity in the posterior right lower lobe with some internal mineralization, most likely focus of rounded atelectasis/scarring. Comparison with prior imaging would be helpful if available. If none available, consider follow-up CT chest in 3-6 months to ensure stability.
[2023-11-10] MEDS: ondansetron 2 mg/ML SDV 2 mL 4 MG IVP (22:30)
[2023-11-11] VITALS (60 sets, daily range): BP systolic 113–155; BP diastolic 63–82; PULSE 83–103; RESP 14–36; TEMP 36.8–38.3; O2SAT 89–99
[2023-11-11] MEDS: heparin 5,000 unit/mL INJ 1 mL 5000 UNIT SUBCUT ×2 (02:59→16:15)
[2023-11-11 04:24] LABS: Basophils # 0.1 10^3/uL (0.0-0.1); Basophils % 0.3 %; Eosinophils # 0.1 10^3/uL (0.0-0.8); Eosinophils % 0.7 %; Hematocrit 34.4 % (37-53); Lymphocytes # 1.6 10^3/uL (0.8-4.8); Lymphocytes % 9.7 %; Mean Corpuscular HGB Conc 32.8 g/dL (30-55); Mean Corpuscular Hemoglobin 30.3 pg (27-33); Mean Corpuscular Volume 92.2 fl (82-101); Mean Platelet Volume 9.2 fL (7.4-10.4); Monocytes # 1.3 10^3/uL (0.2-0.9); Monocytes % 7.8 %; Neutrophils # 13.25 10^3/uL (1.8-7.7); Neutrophils % 80.9 %; Nucleated Red Blood Cells % 0 %; Platelet Count 527 10^3/cmm (157-399); Red Blood Count 3.73 10^6/uL (3.85-5.65); Red Cell Distribution Width 13.8 % (12.1-15.1); White Blood Count 16.36 10^3/uL (3.29-11.43)
[2023-11-11 04:49] LABS: Alanine Aminotransferase 73 U/L (0-41); Albumin Level 2.8 g/dL (3.5-5.2); Alkaline Phosphatase 102 U/L (40-130); Anion Gap 16.3 (5-19); Aspartate Amino Transferase 67 U/L (0-40); Blood Urea Nitrogen 10 mg/dL (8-23); Calcium 8.6 mg/dL (8.5-10.5); Carbon Dioxide 21 mmol/L (22-29); Chloride 96 mmol/L (98-107); Creatinine Clr Calc Pharmacy 114.8553; Globulin 3.9 g/dL (1.3-4.6); Glomerular Filtration Rate 113.5 mL/min (90-130); Glucose 119 mg/dL (65-115); Osmolality Calculated 268 mOsm/kg (285-295); Potassium 4.3 mmol/L (3.5-5.1); Sodium 129 mmol/L (136-145); Total Bilirubin 0.3 mg/dL (0.15-1.2); Total Protein 6.7 g/dL (6.6-8.7)
[2023-11-11 04:56] LABS: Magnesium 2.1 mg/dL (1.7-2.3)
[2023-11-11 05:06] LABS: Folate Level 9.4 ng/mL (4.5-32.2)
[2023-11-11] MEDS: vancomycin 1,500 MG/300 ML PIGGYBACK 200 MG IV ×2 (06:04→19:24)
--- NOTE | 2023-11-11 07:19 | P.ANESASSM_ITS ---
Pre-Anesthetic Assessment Height/Weight: Height 1.75 m Weight 86.353 kg Temp Pulse Resp BP Pulse Ox O2 Del Method 98.6 F 86 24 H 133/66 93 Room Air 11/11/23 04:00 11/11/23 04:54 11/11/23 04:00 11/11/23 04:00 11/11/23 04:00 11/11/23 04:00 Preop Diagnosis: ASHD Social No tobacco Exam alert, oriented x 3, clear to auscultation bilaterally and regular rate & rhythm Airway Submandibular: within normal limits Cervical ROM: within normal limits Mallampati: Class I Comments: Comments: poor dentition but no loose teeth per patient Pulmonary None reported CV/HEM Coronary Artery Disease None reported Hepatic None reported GI None reported Metabolic None reported Anesthetic Plan ASA status: 3 Anesthesia: MAC Risk of > 500 ml blood loss (7ml/kg in children): No Medications/Allergies Home Medications Medication Instructions Recorded Confirmed Last Taken Type No Known Home Medications 11/07/23 11/07/23 Unknown History Allergies Allergy/AdvReac Type Severity Reaction Status Date / Time No Known Allergies Allergy Verified 11/07/23 09:26 Current Medications Generic Name Dose Route Start Last Admin Trade Name Freq PRN Reason Stop Dose Admin Acetaminophen 650 mg 11/07/23 15:03 11/08/23 21:25 Acetaminophen 325 Mg Tablet PO 650 mg Q6H PRN Administration Mild/Mod Pain Or Temp >/= 101 Doxycycline Monohydrate 100 mg 11/10/23 18:00 11/10/23 18:23 Doxycycline 100 Mg Tablet PO 100 mg BID JL Administration Protocol Heparin Sodium (Porcine) 5,000 unit 11/07/23 15:15 11/11/23 02:59 Heparin 5,000 Unit/Ml Inj 1 Ml SUBCUT 5,000 unit Q12H JL Administration Ceftriaxone Sodium 2,000 mg/ 50 mls @ 100 mls/hr 11/08/23 14:30 11/10/23 17:05 Sodium Chloride IV Infused Q24H JL Infusion Protocol Azithromycin 500 mg/ Sodium 250 mls @ 250 mls/hr 11/08/23 14:30 11/10/23 17:35 Chloride IV 11/11/23 14:29 Infused Q24H JL Infusion Protocol Vancomycin/PEG/NADA/Lysine/Water 1,500 mg in 300 mls @ 200 mls/hr 11/08/23 18:00 11/11/23 06:04 Vancocin IV 200 mls/hr Q12H JL Administration Ibuprofen 600 mg 11/09/23 10:23 11/09/23 10:39 Ibuprofen 200 Mg Tablet PO 600 mg Q6H PRN Administration MODERATE PAIN Magnesium Hydroxide 30 ml 11/10/23 10:44 11/10/23 16:45 Magnesium Hydroxide 30 Ml Udc PO 30 ml DAILY PRN Administration CONSTIPATION Metoclopramide HCl 5 mg 11/08/23 19:26 11/08/23 19:45 Metoclopramide 5 Mg/Ml Sdv 2 Ml IVP 5 mg Q6H PRN Administration NAUSEA AND VOMITING Ondansetron HCl 4 mg 11/07/23 15:03 11/10/23 22:30 Ondansetron 2 Mg/Ml Sdv 2 Ml IVP 4 mg Q8H PRN Administration vomiting, or N/V if npo Additional Medication Information Current Medications Acetaminophen (Acetaminophen 325 Mg Tablet) 650 mg PO Q6H PRN PRN Reason: Mild/Mod Pain Or Temp >/= 101 Last Admin: 11/08/23 21:25 Dose: 650 mg Doxycycline Monohydrate (Doxycycline 100 Mg Tablet) 100 mg PO BID [facility]; Protocol Ferrous Gluconate (Ferrous Gluconate 324 Mg Tablet) 324 mg PO EVERY OTHER DAY [facility] Heparin Sodium (Porcine) (Heparin 5,000 Unit/Ml Inj 1 Ml) 5,000 unit SUBCUT Q12H JL Last Admin: 11/10/23 16:35 Dose: 5,000 unit Ceftriaxone Sodium 2,000 mg/ (Sodium Chloride) 50 mls @ 100 mls/hr IV Q24H [facility]; Protocol Last Admin: 11/10/23 16:35 Dose: 100 mls/hr Azithromycin 500 mg/ Sodium (Chloride) 250 mls @ 250 mls/hr IV Q24H [facility]; Protocol Stop: 11/11/23 14:29 Last Admin: 11/10/23 16:35 Dose: 250 mls/hr Vancomycin/PEG/NADA/Lysine/Water (Vancocin) 1,500 mg in 300 mls @ 200 mls/hr IV Q12H JL Last Admin: 11/10/23 05:27 Dose: 200 mls/hr Ibuprofen (Ibuprofen 200 Mg Tablet) 600 mg PO Q6H PRN PRN Reason: MODERATE PAIN Last Admin: 11/09/23 10:39 Dose: 600 mg Magnesium Hydroxide (Magnesium Hydroxide 30 Ml Udc) 30 ml PO DAILY PRN PRN Reason: CONSTIPATION Last Admin: 11/10/23 16:45 Dose: 30 ml Metoclopramide HCl (Metoclopramide 5 Mg/Ml Sdv 2 Ml) 5 mg IVP Q6H PRN PRN Reason: NAUSEA AND VOMITING Last Admin: 11/08/23 19:45 Dose: 5 mg Ondansetron HCl (Ondansetron 2 Mg/Ml Sdv 2 Ml) 4 mg IVP Q8H PRN PRN Reason: vomiting, or N/V if npo Last Admin: 11/09/23 13:52 Dose: 4 mg PFSH Anesthesia Social History Smoking and tobacco/nicotine status: never used tobacco/nicotine Data Anesthesia 11/11/23 03:20 11/11/23 03:20 Short CBC 11/10/23 11/11/23 Range/Units 04:31 03:20 WBC 18.22 H 16.36 H (3.29-11.43) 10^3/uL Hgb 11.10 L 11.30 (11.27-16.99) g/dL Hct 33.7 L 34.4 L (37-53) % MCV 91.3 92.2 (82-101) fl Plt Count 452 H 527 H (157-399) 10^3/cmm Neut % (Auto) 82.4 80.9 % Neut # (Auto) 15.03 H 13.25 H (1.8-7.7) 10^3/uL BMP 11/10/23 11/11/23 04:31 03:20 Sodium 134 L 129 L Potassium 4.2 4.3 Chloride 102 96 L Carbon Dioxide 21 L 21 L BUN 13 10 Creatinine 0.8 0.7 Glucose 123 H 119 H Calcium 7.7 L 8.6 Liver Function 11/10/23 11/11/23 Range/Units 04:31 03:20 Total Bilirubin 0.3 0.3 (0.15-1.2) mg/dL AST 28 67 H (0-40) U/L ALT 28 73 H (0-41) U/L Alkaline Phosphatase 100 102 (40-130) U/L Albumin 3.0 L 2.8 L (3.5-5.2) g/dL Coags 11/10/23 04:31 ESR 102 H C-Reactive Protein 166.6 H Microbiology 11/10/23 10:45 Legionella Urinary Antigen - Final Urine,Voided 11/10/23 10:45 Bacterial Antigens - Final Urine,Voided 11/08/23 17:40 Gram Stain - Final Ankle - Right Body Fluid Culture - Preliminary Cardiac Studies: 2 Echocardiogram 11/07/23
--- NOTE | 2023-11-11 08:18 | W.PM.OPSUD ---
Surgery/Procedure H&P Update DATE OF PROCEDURE: November 11, 2023 DATE H&P PERFORMED: 11/07/23 H&P UPDATE INFORMATION: I have reviewed H&P completed within last 30 days, I have examined patient prior to procedure and No changes to prior documentation PREOP DIAGNOSIS: Fever of unknown origin PRIMARY INDICATION FOR PROCEDURE: FUO/ leukocytosis/Mitral regurgitation PLANNED PROCEDURE: DAVIDSON
[2023-11-11] MEDS: doxycycline 100 mg Tablet PO ×2 (09:28→19:25)
[2023-11-11] MEDS: acetaminophen 325 mg Tablet 650 MG PO (09:29)
[2023-11-11 13:54] LABS: Lymes IGG WB <0.90 index
--- NOTE | 2023-11-11 14:53 | P.PN_ITS ---
Subjective 2 Subjective: No acute events overnight. Patient states he continues to do well. Denies any nausea, vomiting, headache. States he is feeling better. Remains on room air and hemodynamically stable. Tmax today morning 101 Fahrenheit. Patient underwent DAVIDSON today. Vitals/I&O/Wt Last Vital Signs Temp 98.4 F 11/11/23 11:29 Pulse 85 11/11/23 11:29 Resp 16 11/11/23 11:29 BP 141/72 11/11/23 11:29 Pulse Ox 95 11/11/23 11:29 O2 Del Method Room Air 11/11/23 11:29 11/10/23 11/11/23 11/11/23 22:59 06:59 14:59 Intake Total 1840 / 2880 660 / 660 Output Total 2850 / 3575 1050 / 4625 300 / 300 Balance -1010 / -695 -1050 / -1745 360 / 360 Weight last 48 hrs Weight 86.353 kg Weight 84.368 kg Physical Exam 2 Narrative: Accompanied by his Const: COMMON NORMALS: patient oriented x3 and alert GENERAL APPEARANCE: c ooperative ORIENTATION/CONSCIOUSNESS: Yes awake HENMT: COMMON NORMALS: oropharynx normal Neck/C-Spine: COMMON NORMALS: no JVD Resp: COMMON NORMALS: normal respiratory effort and clear to auscultation bilaterally AUSCULTATION: clear to auscultation bilaterally Cardio: COMMON NORMALS: no JVD, regular rhythm, S1 normal heart sound present, S2 normal heart sound present and No murmurs present (Cardio) RATE: b radycardic RHYTHM: regular rhythm HEART SOUNDS: S1 normal heart sound present and S2 normal heart sound present GI: COMMON NORMALS: Normal to inspection, nondistended, normoactive bowel sounds present, Soft to palpation and non-tender PALPATION: Yes Soft to palpation Extremity: COMMON NORMALS: no joint enlargement and no pedal edema Neuro: COMMON NORMALS: patient oriented x3 and moves all extremities S ENSORIUM/ORIENTATION: Yes alert Skin: COMMON NORMALS: no rashes or lesions noted GENERAL SKIN EXAM: no rashes or lesions noted Data 11/11/23 03:20 11/11/23 03:20 Micro: Microbiology 11/08/23 17:40 Gram Stain - Final Ankle - Right Body Fluid Culture - Preliminary 11/11/23 11:13 Blood Culture - Preliminary Blood SPECIMEN COLLECTED 11/11/23 11:09 Blood Culture - Preliminary Blood SPECIMEN COLLECTED 11/10/23 10:45 Legionella Urinary Antigen - Final Urine,Voided 11/10/23 10:45 Bacterial Antigens - Final Urine,Voided A&P Assessment and plan (1) Bradycardia: Episode of bradycardia during admission along with pauses up to 5.7 to 6 seconds while patient was vomiting. Repeat EKG. Monitor ND levels. Zofran as needed. Telemetry. Echocardiogram shows normal ejection fraction, no regional wall motion abnormality. Mild to moderate MVR. Trace to mild TVR. No effusion. No intracardiac masses. Estimated systolic peak pulmonary artery pressure 42 mmHg. Heart rate seems to be stable now. (2) Junctional rhythm: As above. 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 Blood culture & synovial fluid cultures so far negative. Repeat blood culture sent on 11/10. Persistent leukocytosis. Trending slightly down to 16,000. MRI of the foot and ankle negative for acute abnormality. CT lumbar spine and abdomen pelvis results appreciated. Patient denies any diarrhea. Endocarditis less likely as patient blood cultures have remained negative no blood cultures and patient will be less reliable as he was on antibiotic as an outpatient. DAVIDSON done today negative for any vegetation. ESR and CRP elevated. MRSA swab pending. Continue with vancomycin for now. Continue with IV ceftriaxone and oral doxycycline. 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 Has been exposed to buildings with rat and bird droppings extensively. He usually while working he does not use any protective gear on arms or legs. Does get open wound injuries multiple times. Does not have any open wounds as of now. Works at [employer] at home as well and is around meals, horses dogs. Denies use of any form meat recently. Denies use of any unpasteurized milk or eggs recently. Check for Brucella, Bartonella, leptospirosis, histoplasma. Check HIV antigen, RPR. Tick panel pending, Lyme's antibody is negative. For now continue with IV ceftriaxone and oral doxycycline. Given elevated ESR and CRP and all the infectious workup so far negative cannot rule out immunological etiology. Check MICHELA panel. (4) Pain in right ankle: Appreciate podiatry recommendations. Post joint aspiration. Appreciate fluid results. Plan for MRI today. Cannot rule out crystal arthropathy. (5) Foot pain: As above. (6) Leukocytosis: As above. Check peripheral smear Qualifiers: Leukocytosis type: unspecified Qualified Code(s): D72.829 - Elevated white blood cell count, unspecified (7) Bilateral leg pain: As above. With oligoarthritis as above. Requested CK, reviewed, normal. No significant calf or proximal swelling, erythema to suggest DVT. (8) Lyme carditis: Plan Atelectasis: On chest x-ray. 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
--- NOTE | 2023-11-11 15:36 | P.PN_ITS ---
Subjective 2 Subjective: Patient seen at bedside today. Resting comfortably. States that he has no pain or decrease in motion of bilateral feet or ankles. Vitals/I&O/Wt Last Vital Signs Temp 98.4 F 11/11/23 11:29 Pulse 85 11/11/23 11:29 Resp 16 11/11/23 11:29 BP 141/72 11/11/23 11:29 Pulse Ox 95 11/11/23 11:29 O2 Del Method Room Air 11/11/23 11:29 11/11/23 11/11/23 11/11/23 06:59 14:59 22:59 Intake Total 660 / 660 Output Total 1050 / 4625 300 / 300 Balance -1050 / -1745 360 / 360 Weight last 48 hrs Weight 190 lb 6 oz Weight 186 lb Physical Exam 2 Narrative: BELOW IS A FOCUSED LOWER EXTREMITY EXAM GENERAL: A&O x 3 VASCULAR: DP/PT pulses palpable 2/4 with CFT intact, <3seconds to distal digits. Pulses are audibly, strongly biphasic on hand-held Doppler at bedside. Edema much improved to bilateral ankles in comparison to previous days. DERMATOLOGICAL: Bilateral ankles are much improved in comparison to previous days. Erythema has subsided. MUSCULOSKELETAL: No pain to palpation of right ankle or left ankle at today's visit. No pain with range of motion of right ankle joint. No crepitus with range of motion of right ankle joint. Left ankle joint is free from pain on physical exam as well. NEUROLOGICAL: Neurological sensation to the affected foot and ankle is present through L4-S1 dermatomes with no hyper/hypoesthesias, negative Tinel or Valleix's sign IMAGING: MRI of right foot and ankle person interpreted by me. No evidence of abscess. No osteomyelitis. Data 11/11/23 03:20 11/11/23 03:20 Micro: Microbiology 11/08/23 17:40 Gram Stain - Final Ankle - Right Body Fluid Culture - Preliminary 11/11/23 11:13 Blood Culture - Preliminary Blood SPECIMEN COLLECTED 11/11/23 11:09 Blood Culture - Preliminary Blood SPECIMEN COLLECTED 11/10/23 10:45 Legionella Urinary Antigen - Final Urine,Voided 11/10/23 10:45 Bacterial Antigens - Final Urine,Voided A&P Assessment and plan (1) Pain in right ankle: (2) Leukocytosis: Qualifiers: Leukocytosis type: unspecified Qualified Code(s): D72.829 - Elevated white blood cell count, unspecified Plan -Right ankle pain and inflammation. -Labs and vitals reviewed -WBC 16.3 -ESR 71 -CRP 99.7 -VSS -Cultures: Blood cultures: Negative. Right ankle synovial culture: Negative--Gram stain: No organisms identified on Gram stain -Cytology: Right ankle fluid analysis revealed synovial WBC 5826/uL. Fluid crystals: Pending -Tick panel: Pending -Abx: Vanco/Rocephin -Diet: Okay for diet from podiatry standpoint -Status post right ankle arthrocentesis. Cell count of right ankle synovial fluid showed 5826 / uL. Based on the cell count and presentation of synovial fluid, negative Gram stain and patient's improvement clinically, now with new onset erythema and edema to left ankle, septic right ankle joint unlikely. We will continue to monitor fluid cultures and pathology crystal analysis. Continue workup for migratory arthritis. Consider alpha gal workup in addition to tick panel. MRI right ankle and foot, negative. -Pain Mgmt: Per admitting physician -Continue current Abx therapy until ID and Sensitivity results -Trend labs -Discharge plan: No further intervention by podiatry during this admission. Recommend follow-up with podiatry within 2 to 3 weeks of discharge from hospital -Podiatry will sign off. Please reconsult if needed. Attestations 2 Medical Necessity Statement*: See hospitalist note Coding Level of Care Code Acute Code for Chg Fwd Diagnoses Pain in right ankle M25.571 Leukocytosis D72.829 Leukocytosis type: unspecified
[2023-11-11 15:47] LABS: Rapid Plasma Reagin Syphilis Nonreactive (Nonreactive)
[2023-11-11 15:59] LABS: HIV 1 & 2 Antibody Non-Reactive (Non-Reactiv); HIV 1 & 2 Antigen Non-Reactive (Non-Reactiv)
--- NOTE | 2023-11-11 16:05 | ECG_ITS ---
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 Measurements Intervals [place] Rate: 88 P: 65 IL: 267 QRS: 45 QRSD: 84 T: 53 QT: 336 QTc: 408 Interpretive Statements SINUS RHYTHM WITH FIRST DEGREE AV BLOCK Compared to ECG 11/10/2023 13:11:49 No significant changes Electronically Signed On 11-11-2023 17:48:32 CDT by Kehinde Kilgore M.D. [email or web address]
[2023-11-11] MEDS: cefTRIAXone 2,000 MG in sodium chloride 0.9% (plus) 50 ML 100 MG IV (16:15)
--- NOTE | 2023-11-11 17:39 | USCV_ITS ---
Seble Oliver Age: 63 Gender: M : 1960 Exam Date: 11/11/2023 08:28 Ordering Phys: Griselda Herrera MD ([email or web address]) Technologist: Андрей Vo Exam Location: [facility] [place] Indication: ? veg BP: / HR: Rhythm: Sinus Technical Quality: Adequate MEASUREMENTS (Male / Female) Normal Values Medications IV propofol administered by anesthesia service. Please refer to anesthesia note for details. Complications None Proc. Components The DAVIDSON was performed in room# 106. The DAVIDSON probe was passed into the posterior pharynx , mid-esophagus, distal esophagus, and gastric fundus. DAVIDSON was performed at multiple levels. The patient tolerated the procedure well and there were no complications. FINDINGS Left Ventricle A patient of normal size with no intracavitary masses Right Ventricle Normal RV size ejection fraction Right Atrium Appears to be normal size. No intracavitary masses. Left Atrium No intracavitary masses. LA Appendage Normal size and contractility. No intracavitary mass IA Septum Appears to be intact with no evidence of any intracardiac shunts by color-flow Doppler examination or baseline contrast injection. Mitral Valve No masses or vegetations noted. Mild mitral regurgitation. Aortic Valve Tricuspid with no no masses or vegetations Tricuspid Valve No masses or vegetations. Pulmonic Valve No masses or vegetations. Pericardium No pericardial effusion. Aorta Of normal size. No evidence of any aneurysm or dissection CONCLUSIONS No masses or vegetations on the valves. Mild mitral regurgitation. No intracavitary masses. Intact interatrial septum. Normal left atrial appendage and contractility. Normal LV size ejection fraction. No similar previous studies are available for comparison Dr Griselda Herrera MD [facility] (Electronically Signed) Final Date: 13 Nov 2023 21:53 S
[2023-11-11 21:09] LABS: Adenovirus Not Detected (NOT DETECT); Chlamydia Pneumoniae Not Detected (NOT DETECT); Coronavirus 229E,HKU1,NL63,OC4 Not Detected (NOT DETECT); Human Metapneumovirus Not Detected (NOT DETECT); Human Rhinovirus/Enterovirus Not Detected (NOT DETECT); Influenza A Not Detected (NOT DETECT); Influenza A H1 Not Detected (NOT DETECT); Influenza A H1-2009 Not Detected (NOT DETECT); Influenza A H3 Not Detected (NOT DETECT); Influenza B Not Detected (NOT DETECT); Mycoplasma Pneumoniae Not Detected (NOT DETECT); Parainfluenza Virus Type 1 Not Detected (NOT DETECT); Parainfluenza Virus Type 2 Not Detected (NOT DETECT); Parainfluenza Virus Type 3 Not Detected (NOT DETECT); Parainfluenza Virus Type 4 Not Detected (NOT DETECT); Respiratory Syncytial Virus A Not Detected (NOT DETECT); Respiratory Syncytial Virus B Not Detected (NOT DETECT); SARS-COV-2 Not Detected (NOT DETECT)
[2023-11-12] VITALS (7 sets, daily range): BP systolic 129–158; BP diastolic 71–83; PULSE 82–97; RESP 19–24; TEMP 36.7–36.8; O2SAT 93–96
[2023-11-12] MEDS: heparin 5,000 unit/mL INJ 1 mL 5000 UNIT SUBCUT ×2 (03:56→14:08)
[2023-11-12 05:23] LABS: Basophils # 0.1 10^3/uL (0.0-0.1); Basophils % 0.5 %; Eosinophils # 0.2 10^3/uL (0.0-0.8); Eosinophils % 1.6 %; Hematocrit 33.3 % (37-53); Lymphocytes # 1.7 10^3/uL (0.8-4.8); Lymphocytes % 13.6 %; Mean Corpuscular HGB Conc 32.7 g/dL (30-55); Mean Corpuscular Hemoglobin 29.9 pg (27-33); Mean Corpuscular Volume 91.5 fl (82-101); Mean Platelet Volume 9.1 fL (7.4-10.4); Monocytes # 1.1 10^3/uL (0.2-0.9); Monocytes % 9.1 %; Neutrophils # 9.08 10^3/uL (1.8-7.7); Neutrophils % 74.6 %; Nucleated Red Blood Cells % 0 %; Platelet Count 515 10^3/cmm (157-399); Red Blood Count 3.64 10^6/uL (3.85-5.65); Red Cell Distribution Width 13.6 % (12.1-15.1); White Blood Count 12.16 10^3/uL (3.29-11.43)
[2023-11-12] MEDS: vancomycin 1,500 MG/300 ML PIGGYBACK 200 MG IV ×2 (05:33→18:16)
[2023-11-12 05:43] LABS: Alanine Aminotransferase 75 U/L (0-41); Albumin Level 2.9 g/dL (3.5-5.2); Alkaline Phosphatase 111 U/L (40-130); Anion Gap 14.2 (5-19); Aspartate Amino Transferase 51 U/L (0-40); Blood Urea Nitrogen 14 mg/dL (8-23); Calcium 8.7 mg/dL (8.5-10.5); Carbon Dioxide 22 mmol/L (22-29); Chloride 101 mmol/L (98-107); Creatinine Clr Calc Pharmacy 135.3947; Glomerular Filtration Rate 135.6 mL/min (90-130); Glucose 117 mg/dL (65-115); Osmolality Calculated 278 mOsm/kg (285-295); Potassium 4.2 mmol/L (3.5-5.1); Sodium 133 mmol/L (136-145); Total Bilirubin 0.3 mg/dL (0.15-1.2); Total Protein 6.9 g/dL (6.6-8.7)
[2023-11-12 05:44] LABS: Magnesium 2.2 mg/dL (1.7-2.3)
[2023-11-12] MEDS: ferrous gluconate 324 mg Tablet PO (07:59)
[2023-11-12] MEDS: doxycycline 100 mg Tablet PO ×2 (08:00→17:09)
--- NOTE | 2023-11-12 08:49 | PC.NURSE ---
Patient up in room with portable playground monitor. Patient reports increased weakness and requested to use a walker. Walker provided for patient. Patient expressed thanks. Will continue to monitor.
--- NOTE | 2023-11-12 09:25 | CT_ITS ---
WS: [id number] CT CHEST TECHNIQUE: Noncontrast CT of the chest with coronal and sagittal reformatted images. CLINICAL INFORMATION: infectious process, possoble pcp COMPARISON: None. DLP: 412.[address] scans at [facility] use at least one of these dose optimization techniques: automated e xposure control; mA and/or kV adjustment per patient size (includes targeted exams where dose is matc hed to clinical indication); or iterative reconstruction. FINDINGS: Moderate chronic emphysematous changes. Pleural-based opacity in the RIGHT lower lobe with calcificat ion and parenchymal scarring likely due to chronic round atelectasis and/or fibrosis. Lungs are otherwise well aerated. No acute pulmonary infiltrates. Aortic calcification. Coronary calc ification. 1.5 cm low-attenuation LEFT thyroid nodule. No mediastinal or hilar lymphadenopathy. No ax illary lymphadenopathy. Adrenal glands are normal. Tiny esophageal hiatal hernia. No axillary lymphadenopathy. CT/CT chest wo con [id number] IMPRESSION: 1. Pleural-based opacity in the RIGHT lower lobe with calcification and paren chymal scarring likely due to chronic round atelectasis and/or fibrosis. 2. No other acute findings.
--- NOTE | 2023-11-12 09:35 | PC.NURSE ---
Discussed plan for patient with Dr Carrillo. Plan for additional 24hour monitoring. May discharge in am if labs continue to improve. Will continue to monitor.
[2023-11-12] MEDS: ibuprofen 200 mg Tablet PO ×3 (10:05→22:18)
--- NOTE | 2023-11-12 10:33 | PC.NURSE ---
Patient up ambulating in the baird with walker and spouse at side. Patient tolerating well. Will continue to monitor.
[2023-11-12 10:37] LABS: Erythrocyte Sedimentation Rate 97 mm/hr (0-10)
[2023-11-12 10:38] LABS: C Reactive Protein 120.1 mg/L (0.0-4.9)
--- NOTE | 2023-11-12 10:45 | PC.NURSE ---
Patient taken to CT via wheelchair and aide. No distress observed.
--- NOTE | 2023-11-12 12:37 | P.PN_ITS ---
Subjective 2 Subjective: No acute events overnight. Again seen with at bedside. Patient walking up in the baird states he is feeling weak but denies any nausea vomiting, headache, difficulty in breathing, chest pressure or pain during ambulation. Has remained afebrile and hemodynamically stable. Vitals/I&O/Wt Last Vital Signs Temp 98.0 F 11/12/23 07:19 Pulse 87 11/12/23 07:19 Resp 20 H 11/12/23 07:19 BP 148/83 11/12/23 07:19 Pulse Ox 93 11/12/23 07:19 O2 Del Method Room Air 11/12/23 07:19 11/11/23 11/12/23 11/12/23 22:59 06:59 14:59 Intake Total 710 / 1370 780 / 780 Output Total 1625 / 1925 1875 / 3800 500 / 500 Balance -915 / -555 -1875 / -2430 280 / 280 Weight last 48 hrs Weight 84.368 kg Weight 84.958 kg Weight 86.353 kg Physical Exam 2 Narrative: Accompanied by his Const: COMMON NORMALS: patient oriented x3 and alert GENERAL APPEARANCE: c ooperative ORIENTATION/CONSCIOUSNESS: Yes awake HENMT: COMMON NORMALS: oropharynx normal Neck/C-Spine: COMMON NORMALS: no JVD Resp: COMMON NORMALS: normal respiratory effort and clear to auscultation bilaterally AUSCULTATION: clear to auscultation bilaterally Cardio: COMMON NORMALS: no JVD, regular rhythm, S1 normal heart sound present, S2 normal heart sound present and No murmurs present (Cardio) RATE: b radycardic RHYTHM: regular rhythm HEART SOUNDS: S1 normal heart sound present and S2 normal heart sound present GI: COMMON NORMALS: Normal to inspection, nondistended, normoactive bowel sounds present, Soft to palpation and non-tender PALPATION: Yes Soft to palpation Extremity: COMMON NORMALS: no joint enlargement and no pedal edema Neuro: COMMON NORMALS: patient oriented x3 and moves all extremities S ENSORIUM/ORIENTATION: Yes alert Skin: COMMON NORMALS: no rashes or lesions noted GENERAL SKIN EXAM: no rashes or lesions noted Data 11/12/23 04:52 11/12/23 04:52 Micro: Microbiology 11/11/23 11:13 Blood Culture - Preliminary Blood NEGATIVE TO DATE 11/11/23 11:09 Blood Culture - Preliminary Blood NEGATIVE TO DATE 11/08/23 17:40 Gram Stain - Final Ankle - Right Body Fluid Culture - Preliminary A&P Assessment and plan (1) Bradycardia: Episode of bradycardia during admission along with pauses up to 5.7 to 6 seconds while patient was vomiting. Repeat EKG. IA interval so far has remained stable. Continues to have type I block. Asymptomatic. Zofran as needed. Telemetry. Echocardiogram shows normal ejection fraction, no regional wall motion abnormality. Mild to moderate MVR. Trace to mild TVR. No effusion. No intracardiac masses. Estimated systolic peak pulmonary artery pressure 42 mmHg. Heart rate seems to be stable now. (2) Junctional rhythm: Resolved. 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 Blood culture & synovial fluid cultures so far negative. Repeat blood culture sent on 11/10 so far negative as well. Leukocytosis improving down to 12,000 today. MRI of the foot and ankle negative for acute abnormality. CT lumbar spine and abdomen pelvis results appreciated. Patient denies any diarrhea. Endocarditis less likely as patient blood cultures have remained negative no blood cultures and patient will be less reliable as he was on antibiotic as an outpatient. DAVIDSON done on 11/10 negative for any vegetation. Check CT chest to rule out any consolidation. If positive will plan for sending serology for pneumocystis or blastomycosis. ESR and CRP elevated. Will trend ESR and CRP today. MRSA swab pending. Continue with vancomycin for now. Continue with IV ceftriaxone and oral doxycycline. 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 Has been exposed to buildings with rat and bird droppings extensively. He usually while working he does not use any protective gear on arms or legs. Does get open wound injuries multiple times. Does not have any open wounds as of now. Works at [employer] at home as well and is around meals, horses dogs. Denies use of any form raw meat recently. Denies use of any unpasteurized milk or eggs recently. Check for Brucella, Bartonella, leptospirosis, histoplasma, tularemia. Serologies awaited. HIV and RPR negative. Complete tick panel pending. Lyme's negative. Tick panel pending, Lyme's antibody is negative. For now continue with IV ceftriaxone and oral doxycycline. Given elevated ESR and CRP and all the infectious workup so far negative cannot rule out immunological etiology. Check MICHELA panel. For now start on oral ibuprofen 200 mg every 6 hourly. Will recheck ESR and CRP in next 24 hours to see the inflammatory response. (4) Pain in right ankle: Appreciate podiatry recommendations. Post joint aspiration. Appreciate fluid results. Plan for MRI today. Cannot rule out crystal arthropathy. (5) Foot pain: As above. (6) Leukocytosis: As above. Check peripheral smear Qualifiers: Leukocytosis type: unspecified Qualified Code(s): D72.829 - Elevated white blood cell count, unspecified (7) Bilateral leg pain: As above. With oligoarthritis as above. Requested CK, reviewed, normal. No significant calf or proximal swelling, erythema to suggest DVT. (8) Lyme carditis: Plan Atelectasis: On chest x-ray. Requested incentive spirometer Cardiac diet Famotidine for PUD prophylaxis Heparin for DVT prophylaxis Discharge plan: Patient remains hemodynamically stable and afebrile for next 24 hours and blood cultures remain negative will plan to discharge on IV ceftriaxone and oral doxycycline for next 1 week with advised to follow-up as an outpatient with MD PCP. 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
[2023-11-12] MEDS: cefTRIAXone 2,000 MG in sodium chloride 0.9% (plus) 50 ML 100 MG IV (14:08)
[2023-11-12 15:13] LABS: Anti-Double Strand DNA AB <1 IU/mL; Jo-1 Antibody <1.0 NEG AI (<1.0 NEG); SS-B/LA IGG <1.0 NEG AI (<1.0 NEG); Scleroderma Ab(Scl-70) Ab <1.0 NEG AI (<1.0 NEG); Ss-A/Ro Igg <1.0 NEG AI (<1.0 NEG)
--- NOTE | 2023-11-12 18:28 | P.PN_ITS ---
Subjective 2 Subjective: Patient is afebrile. Vitals are stable. Still has a generalized weakness. No fever, chills or cough. No other specific complaints. Telemetry shows sinus rhythm. Medications: Medication Review Details: Current Medications Acetaminophen (Acetaminophen 325 Mg Tablet) 650 mg PO Q6H PRN PRN Reason: Mild/Mod Pain Or Temp >/= 101 Last Admin: 11/11/23 09:29 Dose: 650 mg Doxycycline Monohydrate (Doxycycline 100 Mg Tablet) 100 mg PO BID [facility]; Protocol Last Admin: 11/12/23 17:09 Dose: 100 mg Ferrous Gluconate (Ferrous Gluconate 324 Mg Tablet) 324 mg PO EVERY OTHER DAY [facility] Last Admin: 11/12/23 07:59 Dose: 324 mg Heparin Sodium (Porcine) (Heparin 5,000 Unit/Ml Inj 1 Ml) 5,000 unit SUBCUT Q12H [facility] Last Admin: 11/12/23 14:08 Dose: 5,000 unit Ceftriaxone Sodium 2,000 mg/ (Sodium Chloride) 50 mls @ 100 mls/hr IV Q24H [facility]; Protocol Last Infusion: 11/12/23 14:56 Dose: Infused Vancomycin/PEG/NADA/Lysine/Water (Vancocin) 1,500 mg in 300 mls @ 200 mls/hr IV Q12H [facility] Last Admin: 11/12/23 18:16 Dose: 200 mls/hr Ibuprofen (Ibuprofen 200 Mg Tablet) 200 mg PO Q6H [facility] Last Admin: 11/12/23 17:09 Dose: 200 mg Magnesium Hydroxide (Magnesium Hydroxide 30 Ml Udc) 30 ml PO DAILY PRN PRN Reason: CONSTIPATION Last Admin: 11/10/23 16:45 Dose: 30 ml Metoclopramide HCl (Metoclopramide 5 Mg/Ml Sdv 2 Ml) 5 mg IVP Q6H PRN PRN Reason: NAUSEA AND VOMITING Last Admin: 11/08/23 19:45 Dose: 5 mg Ondansetron HCl (Ondansetron 2 Mg/Ml Sdv 2 Ml) 4 mg IVP Q8H PRN PRN Reason: vomiting, or N/V if npo Last Admin: 11/10/23 22:30 Dose: 4 mg Vitals/I&O/Wt Last Vital Signs Temp 98.0 F 11/12/23 16:00 Pulse 82 11/12/23 16:00 Resp 24 H 11/12/23 16:00 BP 158/82 11/12/23 16:00 Pulse Ox 95 11/12/23 16:00 O2 Del Method Room Air 11/12/23 16:00 11/12/23 11/12/23 11/12/23 06:59 14:59 22:59 Intake Total 1190 / 1190 1040 / 2230 Output Total 1875 / 3800 500 / 500 Balance -1875 / -2430 690 / 690 1040 / 1730 Weight last 48 hrs Weight 186 lb Weight 187 lb 4.8 oz Weight 190 lb 6 oz Physical Exam 2 Narrative: GENERAL: The patient is alert and oriented times three. Not in any acute distress. HEENT: No significant pallor, icterus or lymphadenopathy.Oral cavity: There are no mucous membrane lesions. NECK: Trachea appears to be central. No masses noted. No JVD or thyromegaly appreciated. RESPIRATORY: Chest is symmetrical. No intercostals muscle retraction or any accessory muscle activation. There is no chest wall tenderness. Breath sounds are heard bilaterally. No rales or rhonchi heard. No evidence of any consolidation. BREASTS: Deferred. HEART: The heart sounds are normal. No S3 or S4. No significant murmurs. No pericardial rub ABDOMEN: No vessel pulsations or distention. No tenderness. No organomegaly appreciated. Bowel sounds are normally heard. : Deferred. RECTAL: Deferred. LYMPHATIC: No lymphadenopathy noted in the neck. EXTREMITIES: No edema or cyanosis. No clubbing. MUSCULOSKELETAL: No acute joint deformities or swelling SKIN: There are no significant rashes or ecchymosis NEUROPSYCHIATRIC: The patient is alert and oriented x3. Appears to be in a good mood. No tremors or rigidity noted. Data 11/12/23 04:52 11/12/23 04:52 Other Labs: Laboratory Last Values WBC 12.16 10^3/uL (3.29-11.43) H 11/12/23 04:52 RBC 3.64 10^6/uL (3.85-5.65) L 11/12/23 04:52 Hgb 10.90 g/dL (11.27-16.99) L 11/12/23 04:52 Hct 33.3 % (37-53) L 11/12/23 04:52 MCV 91.5 fl (82-101) 11/12/23 04:52 MCH 29.9 pg (27-33) 11/12/23 04:52 MCHC 32.7 g/dL (30-55) 11/12/23 04:52 RDW 13.6 % (12.1-15.1) 11/12/23 04:52 Plt Count 515 10^3/cmm (157-399) H 11/12/23 04:52 MPV 9.1 fL (7.4-10.4) 11/12/23 04:52 Neut % (Auto) 74.6 % 11/12/23 04:52 Lymph % (Auto) 13.6 % 11/12/23 04:52 [place] % (Auto) 9.1 % 11/12/23 04:52 Eos % (Auto) 1.6 % 11/12/23 04:52 Baso % (Auto) 0.5 % 11/12/23 04:52 Neut # (Auto) 9.08 10^3/uL (1.8-7.7) H 11/12/23 04:52 Lymph # (Auto) 1.7 10^3/uL (0.8-4.8) 11/12/23 04:52 [place] # (Auto) 1.1 10^3/uL (0.2-0.9) H 11/12/23 04:52 Eos # (Auto) 0.2 10^3/uL (0.0-0.8) 11/12/23 04:52 Baso # (Auto) 0.1 10^3/uL (0.0-0.1) 11/12/23 04:52 Nucleated RBC % (auto) 0 % 11/12/23 04:52 Nucleated RBCs # 0.0 /100WBC 11/12/23 04:52 Peripher Smr Path Cons Sent for review 11/10/23 04:31 ESR 97 mm/hr (0-10) H 11/12/23 04:52 PT 14.30 SECONDS (12.1-14.9) 11/07/23 11:08 INR 1.08 (0.8-1.2) 11/07/23 11:08 APTT 31.1 SECONDS (23.9-36.7) 11/07/23 11:08 Sodium 133 mmol/L (136-145) L 11/12/23 04:52 Potassium 4.2 mmol/L (3.5-5.1) 11/12/23 04:52 Chloride 101 mmol/L (98-107) 11/12/23 04:52 Carbon Dioxide 22 mmol/L (22-29) 11/12/23 04:52 Anion Gap 14.2 (5-19) 11/12/23 04:52 BUN 14 mg/dL (8-23) 11/12/23 04:52 Creatinine 0.6 mg/dL (0.7-1.2) L 11/12/23 04:52 GFR Calculation 135.6 mL/min (90-130) H 11/12/23 04:52 Glucose 117 mg/dL (65-115) H 11/12/23 04:52 Estimat Average Glucose 123 11/10/23 04:31 Hemoglobin A1c 5.9 % (4.0-6.0) 11/10/23 04:31 Calculated Osmolality 278 mOsm/kg (285-295) L 11/12/23 04:52 Lactic Acid 0.9 mmol/L (0.5-2.2) 11/08/23 15:05 Uric Acid 4.9 mg/dL (3.4-7.0) 11/08/23 11:16 Calcium 8.7 mg/dL (8.5-10.5) 11/12/23 04:52 Magnesium 2.2 mg/dL (1.7-2.3) 11/12/23 04:52 Iron 13 ug/dL (59-158) L 11/10/23 04:31 TIBC 185 mcg/dl 11/10/23 04:31 % Saturation 7.0 % (20-50) L 11/10/23 04:31 Unsat Iron Binding 172 ug/dL (112-347) 11/10/23 04:31 Total Bilirubin 0.3 mg/dL (0.15-1.2) 11/12/23 04:52 AST 51 U/L (0-40) H 11/12/23 04:52 ALT 75 U/L (0-41) H 11/12/23 04:52 Alkaline Phosphatase 111 U/L (40-130) 11/12/23 04:52 Creatine Kinase 37 U/L (39-308) L 11/08/23 11:16 Troponin T Baseline 13 ng/L (0-15) 11/07/23 11:08 C-Reactive Protein 120.1 mg/L (0.0-4.9) H 11/12/23 04:52 C-React Prot High Sens 13.460 mg/dL (0.0-0.3) H 11/08/23 11:16 NT-Pro-B Natriuret Pep 2067 pg/mL (0-125) H 11/07/23 11:08 Total Protein 6.9 g/dL (6.6-8.7) 11/12/23 04:52 Albumin 2.9 g/dL (3.5-5.2) L 11/12/23 04:52 Globulin 4.0 g/dL (1.3-4.6) 11/12/23 04:52 Triglycerides 90 mg/dL (0-150) 11/10/23 04:31 Cholesterol 109 mg/dL (0-200) 11/10/23 04:31 LDL Cholesterol, Calc 65 mg/dL (50-129) 11/10/23 04:31 Total VLDL Cholesterol 18 mg/dL (0-30) 11/10/23 04:31 HDL Cholesterol 26 mg/dL (60-100) L 11/10/23 04:31 Cholesterol/HDL Ratio 4.19 mg/dL (1.0-5.00) 11/10/23 04:31 Vitamin B12 421 pg/mL (232-1245) 11/10/23 04:31 Folate 9.4 ng/mL (4.5-32.2) 11/11/23 03:20 Procalcitonin 0.46 ng/mL (0-0.5) 11/10/23 04:31 TSH 1.78 uIU/mL (0.27-4.20) 11/07/23 11:08 Urine Color Straw (Yellow) 11/08/23 14:17 Urine Appearance Clear (CLEAR) 11/08/23 14:17 Urine pH 5 (5-7) 11/08/23 14:17 Ur Specific [place] 1.005 (1.005-1.030) 11/08/23 14:17 Urine Protein Neg (Negative) 11/08/23 14:17 Urine Glucose (UA) Norm (Normal) 11/08/23 14:17 Urine Ketones Negative (Negative) 11/08/23 14:17 Urine Blood 2+ (Negative) H 11/08/23 14:17 Urine Nitrate Negative (Negative) 11/08/23 14:17 Urine Bilirubin Neg (Negative) 11/08/23 14:17 Urine Urobilinogen Norm mg/dL (Negative) 11/08/23 14:17 Ur Leukocyte Esterase Negative (Negative) 11/08/23 14:17 Urine RBC Rare /hpf (0-2) 11/08/23 14:17 Urine WBC None /hpf (0-5) 11/08/23 14:17 Ur Squamous Epith Cells None /hpf (0-5) 11/08/23 14:17 Amorphous Sediment Not Reportable 11/08/23 14:17 Urine Bacteria Trace /hpf (NONE) 11/08/23 14:17 Fluid Crystals See path consult 11/08/23 17:10 Synovial Color Red (PALE YELLOW) 11/08/23 17:10 Synovial Appearance Bloody (CLEAR) 11/08/23 17:10 Synovial WBC 5826 /uL (0-150) H 11/08/23 17:10 Synovial RBC 28 10^3/uL (0-0) H 11/08/23 17:10 Synovial Mononuclear 0.777 10^3/uL 11/08/23 17:10 Synov Polynuclear WBCs 5.049 10^3/uL 11/08/23 17:10 Synovial Other Cells Not Reportable 11/08/23 17:10 Synovial Polynuclear % 86.700 % 11/08/23 17:10 Synovial Mononuclear % 13.300 % 11/08/23 17:10 Vancomycin Trough 13.0 ug/mL (10-15) 11/12/23 17:38 DANITA-1 Antibody <1.0 neg AI (<1.0 NEG) 11/11/23 03:20 SS-A/Ro IgG Antibody <1.0 neg AI (<1.0 NEG) 11/11/23 03:20 SS-B/La IgG Antibody <1.0 neg AI (<1.0 NEG) 11/11/23 03:20 Scl-70 Scleroderma Ab <1.0 neg AI (<1.0 NEG) 11/11/23 03:20 Anti-ds DNA IgG Ab <1 IU/mL 11/11/23 03:20 RPR Nonreactive (Nonreactive) 11/11/23 03:20 Adenovirus (PCR) Not detected (NOT DETECT) 11/11/23 18:40 Lyme Ab (Western Blot) <0.90 index 11/08/23 17:30 Lyme IgG (Western Blot 2) <0.90 index 11/10/23 16:08 C. pneumoniae DNA (PCR) Not detected (NOT DETECT) 11/11/23 18:40 Coronavirus 229E (PCR) Not detected (NOT DETECT) 11/11/23 18:40 HIV 1&2 Ab & HIV 1 Ag Non-reactive (Non-Reactiv) 11/11/23 03:20 HIV 1&2 Antibody Non-reactive (Non-Reactiv) 11/11/23 03:20 Human Metapneumovir PCR Not detected (NOT DETECT) 11/11/23 18:40 Influenza A (H1) PCR Not detected (NOT DETECT) 11/11/23 18:40 Influ A (H1/09) PCR Not detected (NOT DETECT) 11/11/23 18:40 Influenza A (H3) PCR Not detected (NOT DETECT) 11/11/23 18:40 Influenza Type A (PCR) Not detected (NOT DETECT) 11/11/23 18:40 Influenza Type B (PCR) Not detected (NOT DETECT) 11/11/23 18:40 Leptospira Source Cancelled 11/11/23 13:35 Leptospira DNA (PCR) Cancelled 11/11/23 13:35 M. pneumoniae (PCR) Not detected (NOT DETECT) 11/11/23 18:40 Parainfluenza 1 (PCR) Not detected (NOT DETECT) 11/11/23 18:40 Parainfluenza 2 (PCR) Not detected (NOT DETECT) 11/11/23 18:40 Parainfluenza 3 (PCR) Not detected (NOT DETECT) 11/11/23 18:40 Parainfluenza 4 (PCR) Not detected (NOT DETECT) 11/11/23 18:40 RSV Type A (PCR) Not detected (NOT DETECT) 11/11/23 18:40 RSV Type B (PCR) Not detected (NOT DETECT) 11/11/23 18:40 Entero/Rhino (PCR) Not detected (NOT DETECT) 11/11/23 18:40 SARS-CoV-2 (PCR) Not detected (NOT DETECT) 11/11/23 18:40 Path Cons w/Slide Yes 11/08/23 17:10 Micro: Microbiology 11/08/23 17:40 Gram Stain - Final Ankle - Right Body Fluid Culture - Final 11/11/23 11:13 Blood Culture - Preliminary Blood NEGATIVE TO DATE 11/11/23 11:09 Blood Culture - Preliminary Blood NEGATIVE TO DATE A&P Assessment and plan (1) Bradycardia: The bradycardia has resolved. Currently the patient seems to be in sinus rhythm with a first-degree AV block. (2) Congestive heart failure: Patient has some features of diastolic heart failure. The LV systolic function is normal by echocardiogram. We may go ahead and do a dobutamine/sestamibi/sestamibi stress test, to evaluate for any underlying coronary ischemia Qualifiers: Heart failure chronicity: acute Heart failure type: diastolic Qualified Code(s): I50.31 - Acute diastolic (congestive) heart failure (3) Low grade fever: Patient is currently remaining afebrile. (4) Fever with leukocytosis and leukocyte count greater than or equal to 20,000: Patient had no evidence of endocarditis based on the DAVIDSON (5) Bilateral leg pain: The symptoms are fairly stable at this time. The MRI of the ankle revealed diffuse soft tissue swelling with no significant joint deformities or effusions Plan Based on the results of the Myocardial perfusion imaging, further recommendations will be made. Attestations 2 Medical Necessity Statement*: Deferred to the primary Coding Level of Care Code 18862 Diagnoses Bradycardia R00.1 Acute diastolic congestive heart failure I50.31 Heart failure chronicity: acute Heart failure type: diastolic Low grade fever R50.9 Fever with leukocytosis and leukocyte count greater than or equal to 20,000 D72.829 Bilateral leg pain M79.604; M79.605
--- NOTE | 2023-11-12 18:34 | ECG_ITS ---
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 Interpretive Statements NAME OF STUDY: DOBUTAMINE SESTAMIBI STRESS TEST INDICATION: Has first degree heart block, PROCEDURE: At the baseline, the blood pressure was 142/67 with a heart rate of 74. The electrocardiogram showed normal sinus rhythm with first-degree AV block. Normal ST Ts. Some early repolarization changes in the inferior leads. The dobutamine was infused over a period of 10 minutes and 39 seconds. The maximum heart rate obtained was 147 (94% of the maximum predicted heart rate). The blood pressure at that time was 191/59mmHg. The patient did not have any chest pain or any significant electrocardiogram changes with the dobutamine infusion. There were some nonspecific ST changes in the inferolateral leads-upsloping ST depressions of less than 1 mm. The physical examination remained unchanged. No arrhythmias were seen on the monitor. During the recovery phase, the patient did not have any specific symptoms. The blood pressure at the end of the recovery phase was 147/84 with a heart rate of 84 per minute. CONCLUSION: 1. Nonspecific EKG changes the dobutamine infusion. 2. No dobutamine induced chest pain or cardiac arrhythmia. Nonspecific ST-changes 3. Hypertensive response to review to infusion, the systolic blood pressure went up to 201/77 from the baseline blood pressure 142/67. 4. Sestamibi/Sestamibi perfusion scan pending; see separate report. Electronically Signed On 11-15-2023 13:26:09 CDT by Griselda Herrera M.D. [email or web address]
[2023-11-13] VITALS (97 sets, daily range): BP systolic 130–149; BP diastolic 74–84; PULSE 66–87; TEMP 37.1; O2SAT 96–98; BMI 27.4
[2023-11-13] MEDS: ibuprofen 200 mg Tablet PO ×2 (03:55→08:27)
[2023-11-13] MEDS: heparin 5,000 unit/mL INJ 1 mL 5000 UNIT SUBCUT (03:55)
[2023-11-13 05:22] LABS: Basophils # 0.1 10^3/uL (0.0-0.1); Basophils % 0.9 %; Eosinophils # 0.4 10^3/uL (0.0-0.8); Eosinophils % 4.9 %; Hematocrit 35.2 % (37-53); Lymphocytes # 1.4 10^3/uL (0.8-4.8); Lymphocytes % 15.9 %; Mean Corpuscular HGB Conc 31.8 g/dL (30-55); Mean Corpuscular Hemoglobin 29.6 pg (27-33); Mean Corpuscular Volume 92.9 fl (82-101); Mean Platelet Volume 8.7 fL (7.4-10.4); Monocytes # 0.9 10^3/uL (0.2-0.9); Monocytes % 9.7 %; Neutrophils # 6.04 10^3/uL (1.8-7.7); Neutrophils % 67.4 %; Nucleated Red Blood Cells % 0 %; Platelet Count 539 10^3/cmm (157-399); Red Blood Count 3.79 10^6/uL (3.85-5.65); Red Cell Distribution Width 13.5 % (12.1-15.1); White Blood Count 8.97 10^3/uL (3.29-11.43)
[2023-11-13] MEDS: vancomycin 1,500 MG/300 ML PIGGYBACK 200 MG IV (05:29)
[2023-11-13 05:43] LABS: Magnesium 2.2 mg/dL (1.7-2.3)
[2023-11-13 05:44] LABS: Alanine Aminotransferase 76 U/L (0-41); Alkaline Phosphatase 104 U/L (40-130); Anion Gap 13.2 (5-19); Aspartate Amino Transferase 45 U/L (0-40); Blood Urea Nitrogen 16 mg/dL (8-23); Calcium 8.7 mg/dL (8.5-10.5); Carbon Dioxide 21 mmol/L (22-29); Chloride 102 mmol/L (98-107); Creatinine Clr Calc Pharmacy 114.8553; Globulin 3.6 g/dL (1.3-4.6); Glomerular Filtration Rate 113.5 mL/min (90-130); Glucose 107 mg/dL (65-115); Osmolality Calculated 276 mOsm/kg (285-295); Potassium 4.2 mmol/L (3.5-5.1); Sodium 132 mmol/L (136-145); Total Bilirubin 0.3 mg/dL (0.15-1.2); Total Protein 6.6 g/dL (6.6-8.7)
[2023-11-13] MEDS: atropine 0.1 mg/mL Syr 10 mL 0.5 MG IVP (07:23)
[2023-11-13] MEDS: metoprolol tartrate 1 mg/1 mL SDV 5 mL 5 MG IV (07:28)
[2023-11-13] MEDS: DOBUTtamine 200 MG in sodium chloride 0.9% 34 ML 50.6199999999999974 MG IV (07:40)
--- NOTE | 2023-11-13 08:03 | P.PN_ITS ---
Subjective 2 Subjective: Patient had a Myocardial perfusion imaging today. He was found to have moderate area of minimal to moderately decreased aseptic in the inferior wall, inflow lateral and inferoseptal regions. Very small area of slight reversibility was noted in the basal inferior wall region. Patient has no chest pain or unusual shortness of breath. He is mainly complaining of generalized weakness. Medications: Medication Review Details: Current Medications Acetaminophen (Acetaminophen 325 Mg Tablet) 650 mg PO Q6H PRN PRN Reason: Mild/Mod Pain Or Temp >/= 101 Last Admin: 11/11/23 09:29 Dose: 650 mg Atropine Sulfate (Atropine 0.1 Mg/Ml Syr 10 Ml) 0.5 mg IVP PRN PRN PRN Reason: see below Stop: 11/14/23 06:38 Last Admin: 11/13/23 07:23 Dose: 0.5 mg Doxycycline Monohydrate (Doxycycline 100 Mg Tablet) 100 mg PO BID [facility]; Protocol Last Admin: 11/12/23 17:09 Dose: 100 mg Esmolol HCl (Esmolol 100 Mg/10 Ml Sdv) 5 mg IV PRN PRN PRN Reason: see below Stop: 11/14/23 06:39 Ferrous Gluconate (Ferrous Gluconate 324 Mg Tablet) 324 mg PO EVERY OTHER DAY [facility] Last Admin: 11/12/23 07:59 Dose: 324 mg Heparin Sodium (Porcine) (Heparin 5,000 Unit/Ml Inj 1 Ml) 5,000 unit SUBCUT Q12H JL Last Admin: 11/13/23 03:55 Dose: 5,000 unit Ceftriaxone Sodium 2,000 mg/ (Sodium Chloride) 50 mls @ 100 mls/hr IV Q24H JL; Protocol Last Infusion: 11/12/23 14:56 Dose: Infused Vancomycin/PEG/NADA/Lysine/Water (Vancocin) 1,500 mg in 300 mls @ 200 mls/hr IV Q12H JL Last Infusion: 11/13/23 06:35 Dose: 0 mls/hr Dobutamine HCl 200 mg/ Sodium (Chloride) 50 mls @ 0 mls/hr IV .Q0M PRN; Protocol PRN Reason: per protocol Last Admin: 11/13/23 07:40 Dose: 40 mcg/kg/min, 50.62 mls/hr Ibuprofen (Ibuprofen 200 Mg Tablet) 200 mg PO Q6H JL Last Admin: 11/13/23 03:55 Dose: 200 mg Magnesium Hydroxide (Magnesium Hydroxide 30 Ml Udc) 30 ml PO DAILY PRN PRN Reason: CONSTIPATION Last Admin: 11/10/23 16:45 Dose: 30 ml Metoclopramide HCl (Metoclopramide 5 Mg/Ml Sdv 2 Ml) 5 mg IVP Q6H PRN PRN Reason: NAUSEA AND VOMITING Last Admin: 11/08/23 19:45 Dose: 5 mg Metoprolol Tartrate (Metoprolol Tartrate 1 Mg/1 Ml Sdv 5 Ml) 5 mg IV PRN PRN PRN Reason: see below Last Admin: 11/13/23 07:28 Dose: 5 mg Nitroglycerin (Nitroglycerin 0.4 Mg Sublingual Tablet) 0.4 mg SUBLINGUAL Q5M PRN PRN Reason: CHEST PAIN Stop: 11/14/23 06:38 Ondansetron HCl (Ondansetron 2 Mg/Ml Sdv 2 Ml) 4 mg IVP Q8H PRN PRN Reason: vomiting, or N/V if npo Last Admin: 11/10/23 22:30 Dose: 4 mg Ondansetron HCl (Ondansetron 2 Mg/Ml Sdv 2 Ml) 4 mg IVP Q2M PRN PRN Reason: NAUSEA Vitals/I&O/Wt Last Vital Signs Temp 98.0 F 11/12/23 16:00 Pulse 87 11/13/23 07:46 Resp 24 H 11/12/23 16:00 BP 149/84 11/13/23 07:46 Pulse Ox 95 11/12/23 16:00 O2 Del Method Room Air 11/12/23 16:00 11/12/23 11/13/23 11/13/23 22:59 06:59 14:59 Intake Total 1340 / 2530 220 / 2750 Balance 1340 / 2030 220 / 2250 Weight last 48 hrs Weight 186 lb Weight 186 lb Weight 187 lb 4.8 oz Physical Exam 2 Narrative: GENERAL: The patient is alert and oriented times three. Not in any acute distress. HEENT: No significant pallor, icterus or lymphadenopathy.Oral cavity: There are no mucous membrane lesions. NECK: Trachea appears to be central. No masses noted. No JVD or thyromegaly appreciated. RESPIRATORY: Chest is symmetrical. No intercostals muscle retraction or any accessory muscle activation. There is no chest wall tenderness. Breath sounds are heard bilaterally. No rales or rhonchi heard. No evidence of any consolidation. BREASTS: Deferred. HEART: The heart sounds are normal. No S3 or S4. No significant murmurs. No pericardial rub ABDOMEN: No vessel pulsations or distention. No tenderness. No organomegaly appreciated. Bowel sounds are normally heard. : Deferred. RECTAL: Deferred. LYMPHATIC: No lymphadenopathy noted in the neck. EXTREMITIES: No edema or cyanosis. No clubbing. MUSCULOSKELETAL: No acute joint deformities or swelling SKIN: There are no significant rashes or ecchymosis NEUROPSYCHIATRIC: The patient is alert and oriented x3. Appears to be in a good mood. No tremors or rigidity noted. Data 11/13/23 05:00 11/13/23 05:00 Other Labs: Laboratory Last Values WBC 8.97 10^3/uL (3.29-11.43) 11/13/23 05:00 RBC 3.79 10^6/uL (3.85-5.65) L 11/13/23 05:00 Hgb 11.20 g/dL (11.27-16.99) L 11/13/23 05:00 Hct 35.2 % (37-53) L 11/13/23 05:00 MCV 92.9 fl (82-101) 11/13/23 05:00 MCH 29.6 pg (27-33) 11/13/23 05:00 MCHC 31.8 g/dL (30-55) 11/13/23 05:00 RDW 13.5 % (12.1-15.1) 11/13/23 05:00 Plt Count 539 10^3/cmm (157-399) H 11/13/23 05:00 MPV 8.7 fL (7.4-10.4) 11/13/23 05:00 Neut % (Auto) 67.4 % 11/13/23 05:00 Lymph % (Auto) 15.9 % 11/13/23 05:00 [place] % (Auto) 9.7 % 11/13/23 05:00 Eos % (Auto) 4.9 % 11/13/23 05:00 Baso % (Auto) 0.9 % 11/13/23 05:00 Neut # (Auto) 6.04 10^3/uL (1.8-7.7) 11/13/23 05:00 Lymph # (Auto) 1.4 10^3/uL (0.8-4.8) 11/13/23 05:00 [place] # (Auto) 0.9 10^3/uL (0.2-0.9) 11/13/23 05:00 Eos # (Auto) 0.4 10^3/uL (0.0-0.8) 11/13/23 05:00 Baso # (Auto) 0.1 10^3/uL (0.0-0.1) 11/13/23 05:00 Nucleated RBC % (auto) 0 % 11/13/23 05:00 Nucleated RBCs # 0.0 /100WBC 11/13/23 05:00 Peripher Smr Path Cons Sent for review 11/10/23 04:31 ESR 104 mm/hr (0-10) H 11/13/23 05:00 PT 14.30 SECONDS (12.1-14.9) 11/07/23 11:08 INR 1.08 (0.8-1.2) 11/07/23 11:08 APTT 31.1 SECONDS (23.9-36.7) 11/07/23 11:08 Sodium 132 mmol/L (136-145) L 11/13/23 05:00 Potassium 4.2 mmol/L (3.5-5.1) 11/13/23 05:00 Chloride 102 mmol/L (98-107) 11/13/23 05:00 Carbon Dioxide 21 mmol/L (22-29) L 11/13/23 05:00 Anion Gap 13.2 (5-19) 11/13/23 05:00 BUN 16 mg/dL (8-23) 11/13/23 05:00 Creatinine 0.7 mg/dL (0.7-1.2) 11/13/23 05:00 GFR Calculation 113.5 mL/min (90-130) 11/13/23 05:00 Glucose 107 mg/dL (65-115) 11/13/23 05:00 Estimat Average Glucose 123 11/10/23 04:31 Hemoglobin A1c 5.9 % (4.0-6.0) 11/10/23 04:31 Calculated Osmolality 276 mOsm/kg (285-295) L 11/13/23 05:00 Lactic Acid 0.9 mmol/L (0.5-2.2) 11/08/23 15:05 Uric Acid 4.9 mg/dL (3.4-7.0) 11/08/23 11:16 Calcium 8.7 mg/dL (8.5-10.5) 11/13/23 05:00 Magnesium 2.2 mg/dL (1.7-2.3) 11/13/23 05:00 Iron 13 ug/dL (59-158) L 11/10/23 04:31 TIBC 185 mcg/dl 11/10/23 04:31 % Saturation 7.0 % (20-50) L 11/10/23 04:31 Unsat Iron Binding 172 ug/dL (112-347) 11/10/23 04:31 Total Bilirubin 0.3 mg/dL (0.15-1.2) 11/13/23 05:00 AST 45 U/L (0-40) H 11/13/23 05:00 ALT 76 U/L (0-41) H 11/13/23 05:00 Alkaline Phosphatase 104 U/L (40-130) 11/13/23 05:00 Creatine Kinase 37 U/L (39-308) L 11/08/23 11:16 Troponin T Baseline 13 ng/L (0-15) 11/07/23 11:08 C-Reactive Protein 76.0 mg/L (0.0-4.9) H 11/13/23 05:00 C-React Prot High Sens 13.460 mg/dL (0.0-0.3) H 11/08/23 11:16 NT-Pro-B Natriuret Pep 2067 pg/mL (0-125) H 11/07/23 11:08 Total Protein 6.6 g/dL (6.6-8.7) 11/13/23 05:00 Albumin 3.0 g/dL (3.5-5.2) L 11/13/23 05:00 Globulin 3.6 g/dL (1.3-4.6) 11/13/23 05:00 Triglycerides 90 mg/dL (0-150) 11/10/23 04:31 Cholesterol 109 mg/dL (0-200) 11/10/23 04:31 LDL Cholesterol, Calc 65 mg/dL (50-129) 11/10/23 04:31 Total VLDL Cholesterol 18 mg/dL (0-30) 11/10/23 04:31 HDL Cholesterol 26 mg/dL (60-100) L 11/10/23 04:31 Cholesterol/HDL Ratio 4.19 mg/dL (1.0-5.00) 11/10/23 04:31 Vitamin B12 421 pg/mL (232-1245) 11/10/23 04:31 Folate 9.4 ng/mL (4.5-32.2) 11/11/23 03:20 Procalcitonin 0.46 ng/mL (0-0.5) 11/10/23 04:31 TSH 1.78 uIU/mL (0.27-4.20) 11/07/23 11:08 Urine Color Straw (Yellow) 11/08/23 14:17 Urine Appearance Clear (CLEAR) 11/08/23 14:17 Urine pH 5 (5-7) 11/08/23 14:17 Ur Specific [place] 1.005 (1.005-1.030) 11/08/23 14:17 Urine Protein Neg (Negative) 11/08/23 14:17 Urine Glucose (UA) Norm (Normal) 11/08/23 14:17 Urine Ketones Negative (Negative) 11/08/23 14:17 Urine Blood 2+ (Negative) H 11/08/23 14:17 Urine Nitrate Negative (Negative) 11/08/23 14:17 Urine Bilirubin Neg (Negative) 11/08/23 14:17 Urine Urobilinogen Norm mg/dL (Negative) 11/08/23 14:17 Ur Leukocyte Esterase Negative (Negative) 11/08/23 14:17 Urine RBC Rare /hpf (0-2) 11/08/23 14:17 Urine WBC None /hpf (0-5) 11/08/23 14:17 Ur Squamous Epith Cells None /hpf (0-5) 11/08/23 14:17 Amorphous Sediment Not Reportable 11/08/23 14:17 Urine Bacteria Trace /hpf (NONE) 11/08/23 14:17 Fluid Crystals See path consult 11/08/23 17:10 Synovial Color Red (PALE YELLOW) 11/08/23 17:10 Synovial Appearance Bloody (CLEAR) 11/08/23 17:10 Synovial WBC 5826 /uL (0-150) H 11/08/23 17:10 Synovial RBC 28 10^3/uL (0-0) H 11/08/23 17:10 Synovial Mononuclear 0.777 10^3/uL 11/08/23 17:10 Synov Polynuclear WBCs 5.049 10^3/uL 11/08/23 17:10 Synovial Other Cells Not Reportable 11/08/23 17:10 Synovial Polynuclear % 86.700 % 11/08/23 17:10 Synovial Mononuclear % 13.300 % 11/08/23 17:10 Vancomycin Trough 13.0 ug/mL (10-15) 11/12/23 17:38 DANITA-1 Antibody <1.0 neg AI (<1.0 NEG) 11/11/23 03:20 SS-A/Ro IgG Antibody <1.0 neg AI (<1.0 NEG) 11/11/23 03:20 SS-B/La IgG Antibody <1.0 neg AI (<1.0 NEG) 11/11/23 03:20 Scl-70 Scleroderma Ab <1.0 neg AI (<1.0 NEG) 11/11/23 03:20 Anti-ds DNA IgG Ab <1 IU/mL 11/11/23 03:20 RPR Nonreactive (Nonreactive) 11/11/23 03:20 Adenovirus (PCR) Not detected (NOT DETECT) 11/11/23 18:40 Lyme Ab (Western Blot) <0.90 index 11/08/23 17:30 Lyme IgG (Western Blot 2) <0.90 index 11/10/23 16:08 C. pneumoniae DNA (PCR) Not detected (NOT DETECT) 11/11/23 18:40 Coronavirus 229E (PCR) Not detected (NOT DETECT) 11/11/23 18:40 E. chaffeensis IgG Ab <1:64 11/08/23 17:30 E. chaffeensis IgM Ab <1:20 11/08/23 17:30 E. chaffeensis Interp See note 11/08/23 17:30 E. chaffeensis Comment Not Reportable 11/08/23 17:30 HIV 1&2 Ab & HIV 1 Ag Non-reactive (Non-Reactiv) 11/11/23 03:20 HIV 1&2 Antibody Non-reactive (Non-Reactiv) 11/11/23 03:20 Human Metapneumovir PCR Not detected (NOT DETECT) 11/11/23 18:40 Influenza A (H1) PCR Not detected (NOT DETECT) 11/11/23 18:40 Influ A (H1/09) PCR Not detected (NOT DETECT) 11/11/23 18:40 Influenza A (H3) PCR Not detected (NOT DETECT) 11/11/23 18:40 Influenza Type A (PCR) Not detected (NOT DETECT) 11/11/23 18:40 Influenza Type B (PCR) Not detected (NOT DETECT) 11/11/23 18:40 Leptospira Source Cancelled 11/11/23 13:35 Leptospira DNA (PCR) Cancelled 11/11/23 13:35 M. pneumoniae (PCR) Not detected (NOT DETECT) 11/11/23 18:40 Parainfluenza 1 (PCR) Not detected (NOT DETECT) 11/11/23 18:40 Parainfluenza 2 (PCR) Not detected (NOT DETECT) 11/11/23 18:40 Parainfluenza 3 (PCR) Not detected (NOT DETECT) 11/11/23 18:40 Parainfluenza 4 (PCR) Not detected (NOT DETECT) 11/11/23 18:40 RSV Type A (PCR) Not detected (NOT DETECT) 11/11/23 18:40 RSV Type B (PCR) Not detected (NOT DETECT) 11/11/23 18:40 Entero/Rhino (PCR) Not detected (NOT DETECT) 11/11/23 18:40 SARS-CoV-2 (PCR) Not detected (NOT DETECT) 11/11/23 18:40 MRSA (PCR) Not detected (NOT DETECTED) 11/12/23 11:30 Path Cons w/Slide Yes 11/08/23 17:10 Micro: Microbiology 11/08/23 17:40 Gram Stain - Final Ankle - Right Body Fluid Culture - Final 11/11/23 11:13 Blood Culture - Preliminary Blood NEGATIVE TO DATE 11/11/23 11:09 Blood Culture - Preliminary Blood NEGATIVE TO DATE A&P Assessment and plan (1) Bradycardia: The bradycardia has resolved. Currently the patient seems to be in sinus rhythm with a first-degree AV block. (2) Congestive heart failure: The Myocardial perfusion imaging results were reviewed and discussed. It was decided to treat medically. Patient be started on isosorbide mononitrate 30 mg p.o. daily. May consider JENN inhibitor, aspirin and lipid profile as an outpatient. Because of patient's a feeling of generalized weakness, aches and pains, it was thought to be appropriate to advance his medications gradually. Qualifiers: Heart failure chronicity: acute Heart failure type: diastolic Qualified Code(s): I50.31 - Acute diastolic (congestive) heart failure (3) Low grade fever: Patient is currently remaining afebrile. Patient is being discharged home today (4) Fever with leukocytosis and leukocyte count greater than or equal to 20,000: Patient had the DAVIDSON yesterday and was found to have no evidence of any endocarditis. (5) Bilateral leg pain: The symptoms are fairly stable at this time. The MRI of the ankle revealed diffuse soft tissue swelling with no significant joint deformities or effusions Plan Possible discharge home today. Will be seen in the clinic in 1 to 2 weeks. Appointment with me in 1 month. Attestations 2 Medical Necessity Statement*: Disposition as per the primary Coding Level of Care Code 42190 Diagnoses Bradycardia R00.1 Acute diastolic congestive heart failure I50.31 Heart failure chronicity: acute Heart failure type: diastolic Low grade fever R50.9 Fever with leukocytosis and leukocyte count greater than or equal to 20,000 D72.829 Bilateral leg pain M79.604; M79.605
[2023-11-13] MEDS: doxycycline 100 mg Tablet PO (08:27)
[2023-11-13 12:12] LABS: Erythrocyte Sedimentation Rate 104 mm/hr (0-10)
--- NOTE | 2023-11-13 12:17 | PM.DCS ---
Discharge Providers Date of Admission: 11/08/23 22:09 Date of Discharge: November 13, 2023 Attending Provider at Admission: Andrea Telles Attending Provider at Discharge: Charles Carrillo MD Consults: Cardiology: Dr. Herrera Primary Care Provider: DEBRA Casas Diagnoses at Discharge Discharge Diagnosis (1) Bradycardia: Status: Acute (2) Congestive heart failure: Status: Acute Qualifiers: Heart failure chronicity: acute Heart failure type: diastolic Qualified Code(s): I50.31 - Acute diastolic (congestive) heart failure (3) Low grade fever: Status: Acute (4) Fever with leukocytosis and leukocyte count greater than or equal to 20,000: Status: Acute (5) Bilateral leg pain: Status: Acute (6) Positive cardiac stress test: Status: Acute (7) Third degree heart block by electrocardiogram: Status: Acute (8) SIRS (systemic inflammatory response syndrome): Status: Acute Reason for Visit Reason for Visit: sent by [facility] Brief History: History as per HPI: Pleasant 63-year-old gentleman recently treated after a tick bite for possible tickborne fever, had some crackles in his lung and was also treated for possible respiratory tract infection, states he completed 14-day course of doxycycline. Was referred to emergency room due to concern for atrial fibrillation. In ER he is not found to be in A-fib, but is bradycardic heart rates in the 40s, as low as 36, with concern for high degree AV block. Hospital Course Hospital Course Patient was admitted to the hospital further evaluation and management of significant bradycardia with high degree AV blocks. On admission he also was found to have severe leukocytosis for which she was started on broad-spectrum antibiotics. There is a concern for tickborne associated infection for which she was also started on oral doxycycline. Echocardiogram was done which showed an EF of 65% with mild to moderate MR and mild TR with PASP of 42 mmHg. During hospitalization eventually his arrhythmia and heart rate came better and did not have any further high degree AV block's but he continued to have type I heart block with stable KS intervals. His blood culture remain negative. Because of persistent leukocytosis further infectious workup was done. Cardiology and podiatry were consulted. Podiatry was consulted for swollen ankle with concerns for septic arthritis which was ruled out with arthrocentesis and fluid studies. Patient underwent multiple imaging studies including CT abdomen pelvis, CT neck of the jaw, CT chest, MRI ankle which were all negative for infectious process. Tick panel is still awaited though Lyme study is negative. 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 Has been exposed to buildings with rat and bird droppings extensively. He usually while working he does not use any protective gear on arms or legs. Does get open wound injuries multiple times. Does not have any open wounds as of now. Works at [employer] at home as well and is around meals, horses dogs. Denies use of any form raw meat recently. Denies use of any unpasteurized milk or eggs recently. Given concerns for high degree AV block on admission he underwent cardiac stress test to rule out ischemia on 11/12. 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 Given his ongoing treatment for infectious process decision was made to treat patient medically with low-dose Imdur and baby aspirin advised to follow-up with nurse practitioner from cardiology team within next 1 week. He also underwent DAVIDSON and infective endocarditis was ruled out. Further infectious workup including Brucella, Bartonella, leptospirosis, histoplasma, tularemia were sent out. HIV and RPR remain negative. Eventually patient responded to the treatment and has been afebrile for last 48 hours with resolution of leukocytosis. He has been discharged in hemodynamically stable condition on IV ceftriaxone and oral doxycycline for 7 more days with advised to repeat CBC, CMP and EKG within next 1 week and follow-up with a primary care provider. He is to come in as an outpatient for daily infusions of antibiotics. Event monitor is also being placed for further monitoring for arrhythmia. Physical Exam Narrative: Accompanied by his Const: COMMON NORMALS: patient oriented x3 and alert GENERAL APPEARANCE: cooperative ORIENTATION/CONSCIOUSNESS: Yes awake HENMT: COMMON NORMALS: oropharynx normal Neck/C-Spine: COMMON NORMALS: no JVD Resp: COMMON NORMALS: normal respiratory effort and clear to auscultation bilaterally AUSCULTATION: clear to auscultation bilaterally Cardio: COMMON NORMALS: no JVD, regular rhythm, S1 normal heart sound present, S2 normal heart sound present and No murmurs present (Cardio) RATE: bradycardic RHYTHM: regular rhythm HEART SOUNDS: S1 normal heart sound present and S2 normal heart sound present GI: COMMON NORMALS: Normal to inspection, nondistended, normoactive bowel sounds present, Soft to palpation and non-tender PALPATION: Yes Soft to palpation Extremity: COMMON NORMALS: no joint enlargement and no pedal edema Neuro: COMMON NORMALS: patient oriented x3 and moves all extremities SENSORIUM/ORIENTATION: Yes alert Skin: COMMON NORMALS: no rashes or lesions noted GENERAL SKIN EXAM: no rashes or lesions noted Discharge Data Studies Completed and Pending Completed Studies During Hospitalization Category Date Time Status CT abdomen pelvis w con* [id number] Routine Cat Scan 11/10/23 21:[address] ankle RT w con [id number] Urgent Cat Scan 11/08/23 14:[address] chest wo con [id number] Routine Cat Scan 11/12/23 09:[address] foot RT w con [id number] Urgent Cat Scan 11/08/23 14:[address] lumbar spine w con [id number] Routine Cat Scan 11/10/23 21:[address] neck w con* [id number] Routine Cat Scan 11/10/23 09:30 Completed CXRP [XR chest 1V portable [id number]] Stat Exams 11/07/23 10:52 Completed Cardiac Stress Test MIBI [Sestamibi Stress Test Request Exams 11/12/23 18:34 Draft ] Routine MR ankle RT wo/w con [id number] Routine MRI 11/10/23 06:00 Completed MR foot RT wo/w con [id number] Routine MRI 11/10/23 06:00 Completed CV. echo complete* [id number] Stat Ultrasound 11/07/23 12:04 Completed Pending at discharge Category Date Time Status Cardiac Stress Test MIBI [Sestamibi Stress Test Request Exams 11/12/23 18:34 Ordered ] Routine Bartonella Species AB(IgG,IgM) Routine Lab 11/11/23 03:20 Results Blood Culture Stat Lab 11/11/23 11:13 Results Brucella AB Agglutination Routine Lab 11/11/23 03:20 Results CRP [C Reactive Protein] Routine Lab 11/13/23 05:00 Received Francisella tularensis IgM/IgG Routine Lab 11/11/23 13:35 Received Leptospira DNA,Qualitative PCR Routine Lab 11/12/23 04:52 Received MRSA [Methicillin Resistant S.aureu] Routine Lab 11/10/23 12:54 Received [facility] MICHELA Profile Routine Lab 11/11/23 03:20 Results Tick Panel Routine Lab 11/08/23 17:30 Results NM vicente perf SPECT r/s* [id number] Routine Nuc Med 11/13/23 18:34 Taken CV. echo transesophageal [id number] Routine Ultrasound 11/11/23 17:39 Taken Radiology Impressions Chest X-Ray 11/07/23 10:52 Impression: 1. Minimal opacity over surface left diaphragm most likely atelectasis. 2. Small right pleural effusion. Ankle CT 11/08/23 14:16 IMPRESSION: 1. No acute bony abnormality. 2. Moderate Achilles tendinopathy. 3. Nonspecific mild subcutaneous edema. Foot CT 11/08/23 14:16 IMPRESSION: 1. No acute fracture, dislocation or inflammatory erosions. No osteopenia periosteal reaction or osteomyelitis. No stress fracture. 2. No soft tissue calcifications, gouty tophus or typical gouty erosions. 3. There is abundant soft tissue edema 1st MTP joint and adjacent medial soft tissues. There are prominent degenerative changes between the plantar 1st metatarsal head and sesamoid bones. There is concern for sesamoiditis proximal ossicle medial bipartite sesamoid bone. No sesamoid osteonecrosis. 4. Note is made that a patient clinically can have gout and have no CT evidence of gout early in the disease. Typically the erosions and calcifications developed after several years. Please correlate clinically. Ankle MRI 11/10/23 06:00 IMPRESSION: 1. Diffuse soft tissue edema. 2. No fluid collections or abscess. 3. No osteomyelitis. 4. Very minimal Achilles tendinopathy. No tear or enlargement. 5. Very minimal retrocalcaneal bursitis. 6. Small calcaneal spur. Foot MRI 11/10/23 06:00 IMPRESSION: 1. No erosions in the first metatarsal head or evidence for gout. 2. Mild bursitis involving the first metatarsophalangeal joint. 3. Bipartite medial sesamoid at the first metatarsal head. 4. No marrow edema or fracture. No osteomyelitis. Neck CT 11/10/23 09:30 IMPRESSION: 1. No evidence of periodontal abscess or fluid collection. Poor dentition. 2. RIGHT maxillary sinusitis with air-fluid level. 3. Small thyroid nodules LEFT greater than RIGHT. 4. Moderate spondylitic changes cervical spine with mild central canal stenosis C3-C4. Abdomen/Pelvis CT 11/10/23 21:39 IMPRESSION: 1. Fluid levels in the nondilated large and small bowel, nonspecific, can be seen with enterocolitis in the appropriate clinical context.. 2. Pleural-based opacity in the posterior right lower lobe with some internal mineralization, most likely focus of rounded atelectasis/scarring. Comparison with prior imaging would be helpful if available. If none available, consider follow-up CT chest in 3-6 months to ensure stability. Lumbar Spine CT 11/10/23 21:39 IMPRESSION: No acute fracture. Mild erosive change along the L2 inferior endplate, may be degenerative, can also be seen with sequela of discitis/osteomyelitis. CT sensitivity for detection of acute discitis/osteomyelitis is limited, and if there is persistent high clinical suspicion, recommend MRI lumbar spine with and without IV contrast. Chest CT 11/12/23 09:25 IMPRESSION: 1. Pleural-based opacity in the RIGHT lower lobe with calcification and parenchymal scarring likely due to chronic round atelectasis and/or fibrosis. 2. No other acute findings. Lexiscan stress test: PERFUSION FINDINGS Moderate area of moderately decreased tracer uptake involving the basal mid and apical inferior, mid inferolateral, mid inferoseptal regions. Small area of slight reversibility was noted in the basal inferior region FUNCTIONAL RESULTS (calculated via Gated SPECT) Stress Image LV EF (%): 73 Stress EDV (mL):114 TID: 1.16 Stress ESV (mL):31 FUNCTIONAL FINDINGS: Segmental wall motion analysis revealing no gross wall motion abnormalities IMPRESSIONS 1. Myocardial perfusion imaging revealing moderate area of moderately decreased tracer uptake involving the inferior, inferoseptal and inferolateral regions with a small area of slight reversibility in the basal inferior region suggesting myocardial scarring in the distribution of the right coronary artery/circumflex artery with a small area of slight ischemia in the basal inferior region. The transient ischemic dilatation ratio was slightly elevated, suggesting endocardial ischemia. 2. Normal LV ejection fraction 73%. 3. LV wall motion analysis revealing no gross wall motion abnormalities. 4. Normal LV volume No similar previous studies are available for comparison Dr Griselda Herrera MD [facility] (Electronically Signed) Final Date: 13 Nov 2023 13:44 Laboratory Results WBC 8.97 10^3/uL (3.29-11.43) 11/13/23 05:00 RBC 3.79 10^6/uL (3.85-5.65) L 11/13/23 05:00 Hgb 11.20 g/dL (11.27-16.99) L 11/13/23 05:00 Hct 35.2 % (37-53) L 11/13/23 05:00 MCV 92.9 fl (82-101) 11/13/23 05:00 MCH 29.6 pg (27-33) 11/13/23 05:00 MCHC 31.8 g/dL (30-55) 11/13/23 05:00 RDW 13.5 % (12.1-15.1) 11/13/23 05:00 Plt Count 539 10^3/cmm (157-399) H 11/13/23 05:00 MPV 8.7 fL (7.4-10.4) 11/13/23 05:00 Neut % (Auto) 67.4 % 11/13/23 05:00 Lymph % (Auto) 15.9 % 11/13/23 05:00 [place] % (Auto) 9.7 % 11/13/23 05:00 Eos % (Auto) 4.9 % 11/13/23 05:00 Baso % (Auto) 0.9 % 11/13/23 05:00 Neut # (Auto) 6.04 10^3/uL (1.8-7.7) 11/13/23 05:00 Lymph # (Auto) 1.4 10^3/uL (0.8-4.8) 11/13/23 05:00 [place] # (Auto) 0.9 10^3/uL (0.2-0.9) 11/13/23 05:00 Eos # (Auto) 0.4 10^3/uL (0.0-0.8) 11/13/23 05:00 Baso # (Auto) 0.1 10^3/uL (0.0-0.1) 11/13/23 05:00 Nucleated RBC % (auto) 0 % 11/13/23 05:00 Nucleated RBCs # 0.0 /100WBC 11/13/23 05:00 Peripher Smr Path Cons Sent for review 11/10/23 04:31 ESR 104 mm/hr (0-10) H 11/13/23 05:00 PT 14.30 SECONDS (12.1-14.9) 11/07/23 11:08 INR 1.08 (0.8-1.2) 11/07/23 11:08 APTT 31.1 SECONDS (23.9-36.7) 11/07/23 11:08 Sodium 132 mmol/L (136-145) L 11/13/23 05:00 Potassium 4.2 mmol/L (3.5-5.1) 11/13/23 05:00 Chloride 102 mmol/L (98-107) 11/13/23 05:00 Carbon Dioxide 21 mmol/L (22-29) L 11/13/23 05:00 Anion Gap 13.2 (5-19) 11/13/23 05:00 BUN 16 mg/dL (8-23) 11/13/23 05:00 Creatinine 0.7 mg/dL (0.7-1.2) 11/13/23 05:00 GFR Calculation 113.5 mL/min (90-130) 11/13/23 05:00 Glucose 107 mg/dL (65-115) 11/13/23 05:00 Estimat Average Glucose 123 11/10/23 04:31 Hemoglobin A1c 5.9 % (4.0-6.0) 11/10/23 04:31 Calculated Osmolality 276 mOsm/kg (285-295) L 11/13/23 05:00 Lactic Acid 0.9 mmol/L (0.5-2.2) 11/08/23 15:05 Uric Acid 4.9 mg/dL (3.4-7.0) 11/08/23 11:16 Calcium 8.7 mg/dL (8.5-10.5) 11/13/23 05:00 Magnesium 2.2 mg/dL (1.7-2.3) 11/13/23 05:00 Iron 13 ug/dL (59-158) L 11/10/23 04:31 TIBC 185 mcg/dl 11/10/23 04:31 % Saturation 7.0 % (20-50) L 11/10/23 04:31 Unsat Iron Binding 172 ug/dL (112-347) 11/10/23 04:31 Total Bilirubin 0.3 mg/dL (0.15-1.2) 11/13/23 05:00 AST 45 U/L (0-40) H 11/13/23 05:00 ALT 76 U/L (0-41) H 11/13/23 05:00 Alkaline Phosphatase 104 U/L (40-130) 11/13/23 05:00 Creatine Kinase 37 U/L (39-308) L 11/08/23 11:16 Troponin T Baseline 13 ng/L (0-15) 11/07/23 11:08 C-Reactive Protein 120.1 mg/L (0.0-4.9) H 11/12/23 04:52 C-React Prot High Sens 13.460 mg/dL (0.0-0.3) H 11/08/23 11:16 NT-Pro-B Natriuret Pep 2067 pg/mL (0-125) H 11/07/23 11:08 Total Protein 6.6 g/dL (6.6-8.7) 11/13/23 05:00 Albumin 3.0 g/dL (3.5-5.2) L 11/13/23 05:00 Globulin 3.6 g/dL (1.3-4.6) 11/13/23 05:00 Triglycerides 90 mg/dL (0-150) 11/10/23 04:31 Cholesterol 109 mg/dL (0-200) 11/10/23 04:31 LDL Cholesterol, Calc 65 mg/dL (50-129) 11/10/23 04:31 Total VLDL Cholesterol 18 mg/dL (0-30) 11/10/23 04:31 HDL Cholesterol 26 mg/dL (60-100) L 11/10/23 04:31 Cholesterol/HDL Ratio 4.19 mg/dL (1.0-5.00) 11/10/23 04:31 Vitamin B12 421 pg/mL (232-1245) 11/10/23 04:31 Folate 9.4 ng/mL (4.5-32.2) 11/11/23 03:20 Procalcitonin 0.46 ng/mL (0-0.5) 11/10/23 04:31 TSH 1.78 uIU/mL (0.27-4.20) 11/07/23 11:08 Urine Color Straw (Yellow) 11/08/23 14:17 Urine Appearance Clear (CLEAR) 11/08/23 14:17 Urine pH 5 (5-7) 11/08/23 14:17 Ur Specific [place] 1.005 (1.005-1.030) 11/08/23 14:17 Urine Protein Neg (Negative) 11/08/23 14:17 Urine Glucose (UA) Norm (Normal) 11/08/23 14:17 Urine Ketones Negative (Negative) 11/08/23 14:17 Urine Blood 2+ (Negative) H 11/08/23 14:17 Urine Nitrate Negative (Negative) 11/08/23 14:17 Urine Bilirubin Neg (Negative) 11/08/23 14:17 Urine Urobilinogen Norm mg/dL (Negative) 11/08/23 14:17 Ur Leukocyte Esterase Negative (Negative) 11/08/23 14:17 Urine RBC Rare /hpf (0-2) 11/08/23 14:17 Urine WBC None /hpf (0-5) 11/08/23 14:17 Ur Squamous Epith Cells None /hpf (0-5) 11/08/23 14:17 Amorphous Sediment Not Reportable 11/08/23 14:17 Urine Bacteria Trace /hpf (NONE) 11/08/23 14:17 Fluid Crystals See path consult 11/08/23 17:10 Synovial Color Red (PALE YELLOW) 11/08/23 17:10 Synovial Appearance Bloody (CLEAR) 11/08/23 17:10 Synovial WBC 5826 /uL (0-150) H 11/08/23 17:10 Synovial RBC 28 10^3/uL (0-0) H 11/08/23 17:10 Synovial Mononuclear 0.777 10^3/uL 11/08/23 17:10 Synov Polynuclear WBCs 5.049 10^3/uL 11/08/23 17:10 Synovial Other Cells Not Reportable 11/08/23 17:10 Synovial Polynuclear % 86.700 % 11/08/23 17:10 Synovial Mononuclear % 13.300 % 11/08/23 17:10 Vancomycin Trough 13.0 ug/mL (10-15) 11/12/23 17:38 DANITA-1 Antibody <1.0 neg AI (<1.0 NEG) 11/11/23 03:20 SS-A/Ro IgG Antibody <1.0 neg AI (<1.0 NEG) 11/11/23 03:20 SS-B/La IgG Antibody <1.0 neg AI (<1.0 NEG) 11/11/23 03:20 Scl-70 Scleroderma Ab <1.0 neg AI (<1.0 NEG) 11/11/23 03:20 Anti-ds DNA IgG Ab <1 IU/mL 11/11/23 03:20 RPR Nonreactive (Nonreactive) 11/11/23 03:20 Adenovirus (PCR) Not detected (NOT DETECT) 11/11/23 18:40 Lyme Ab (Western Blot) <0.90 index 11/08/23 17:30 Lyme IgG (Western Blot 2) <0.90 index 11/10/23 16:08 C. pneumoniae DNA (PCR) Not detected (NOT DETECT) 11/11/23 18:40 Coronavirus 229E (PCR) Not detected (NOT DETECT) 11/11/23 18:40 HIV 1&2 Ab & HIV 1 Ag Non-reactive (Non-Reactiv) 11/11/23 03:20 HIV 1&2 Antibody Non-reactive (Non-Reactiv) 11/11/23 03:20 Human Metapneumovir PCR Not detected (NOT DETECT) 11/11/23 18:40 Influenza A (H1) PCR Not detected (NOT DETECT) 11/11/23 18:40 Influ A (H1/09) PCR Not detected (NOT DETECT) 11/11/23 18:40 Influenza A (H3) PCR Not detected (NOT DETECT) 11/11/23 18:40 Influenza Type A (PCR) Not detected (NOT DETECT) 11/11/23 18:40 Influenza Type B (PCR) Not detected (NOT DETECT) 11/11/23 18:40 Leptospira Source Cancelled 11/11/23 13:35 Leptospira DNA (PCR) Cancelled 11/11/23 13:35 M. pneumoniae (PCR) Not detected (NOT DETECT) 11/11/23 18:40 Parainfluenza 1 (PCR) Not detected (NOT DETECT) 11/11/23 18:40 Parainfluenza 2 (PCR) Not detected (NOT DETECT) 11/11/23 18:40 Parainfluenza 3 (PCR) Not detected (NOT DETECT) 11/11/23 18:40 Parainfluenza 4 (PCR) Not detected (NOT DETECT) 11/11/23 18:40 RSV Type A (PCR) Not detected (NOT DETECT) 11/11/23 18:40 RSV Type B (PCR) Not detected (NOT DETECT) 11/11/23 18:40 Entero/Rhino (PCR) Not detected (NOT DETECT) 11/11/23 18:40 SARS-CoV-2 (PCR) Not detected (NOT DETECT) 11/11/23 18:40 Path Cons w/Slide Yes 11/08/23 17:10 Vitals Last Vital Signs Temp 98.7 F 11/13/23 08:35 Pulse 80 11/13/23 08:45 Resp 24 H 11/12/23 16:00 BP 146/84 11/13/23 08:45 Pulse Ox 95 11/12/23 16:00 O2 Del Method Room Air 11/12/23 16:00 Discharge Plan Discharge Patient Disposition: Home Condition: Stable Prescriptions: New doxycycline monohydrate 100 mg Tablet 100 mg PO BID Qty: 14 0RF ferrous gluconate 324 mg (37.5 mg iron) Tablet 324 mg PO EVERY OTHER DAY Qty: 60 0RF aspirin 81 mg capsule 81 mg PO DAILY Qty: 30 0RF ibuprofen 200 mg Tablet 200 mg PO BID Qty: 14 0RF ceftriaxone 2 gram recon soln 2 g IM DAILY 7 Days Qty: 7 0RF isosorbide mononitrate 30 mg Tablet Extended Release 24 Hr 30 mg PO DAILY Qty: 30 0RF Discharge Orders: Discharge Order (Routine); Ordered 11/13/23 Ordered By: Charles Carrillo Other Ambulatory Orders: MCT/Event Monitor 21 Days (Routine) Timeframe: 1 Week Facility: [facility] - Location: Radiology Ordered By: Charles Carrillo Referrals: [facility] Infusion Center [Other] - 11/14/23 8:30 am (You have an appointment set up to start your infusions on 11/14/23 at 0830. Please check in at the oncology admissions desk. Your infusion will be at the Infusion Center Friday-Friday. On Friday and Friday, please come to [facility], for your infusion at 10:00. Friday- your appointment will be back at the infusion center at 1300. If at any time you need clarification, please call Erika, territory business manager coordination at [phone]. ) Freedom Telles MD [Physician] - 11/17/23 10:00 am (Your appointment to see Dr. Telles is at the [facility]. ) Griselda Herrera MD [Physician] - 1 month Maranda Juárez FNP [Nurse Practitioner] - 12/02/23 1:00 pm (Your appointment to get your 21 day Event Monitor is on 11-17-23 at 2:00 pm at the [facility]. Please arrive a few minutes early for paperwork. Thank you. Your appointment with Maranda Juárez is on 12-02-23 at 1:00 pm at the [facility]. Please call [phone] with any questions or concerns. Thank you.) Discharge Diet: Cardiac Discharge Activity: Resume usual activity and Increase activity as tolerated Patient Instructions: Iron Supplements (By mouth) (Duofer, Fe-20, Bifera, Napoleon-Iron), Doxycycline (By mouth) (Acticlate, Adoxa, Avidoxy, Monodox, Doryx), Ibuprofen (By mouth) (Advil, Advil Children's, Motrin, Children's..., Ceftriaxone (By injection) (Rocephin, Novaplus cefTRIAXone,..., Heart Failure (DC), CHF Stoplight, Opioid Safety Activity Restrictions/Additional Instructions: You will be on IV antibiotic including ceftriaxone 2 g daily for next 7 days. Also take doxycycline which is the antibiotic for next 7 days morning and evening. Take ibuprofen twice daily for next 7 days. Please make sure you maintain your hydration with up to 2 L of fluid daily. Please follow-up with a primary care provider on the set appointment for repeat CBC, CMP and EKG along with ESR and CRP. Follow-up with nurse practitioner from cardiology team within next [address] Kemp next 1 month Discharge Attestations Time Spent in Discharge Care*: greater than 30 min Specific Discharge Activities: educating patient, educating and/or supporting family/caregiver, discussing with pcp/other providers, discussing with casework specialist/social workers/dc planners, documenting/other paperwork and evaluating patient/reviewing data Status at Discharge: Cognitive status at discharge: cognitively intact, Behavioral status at discharge: cooperative, Functional status at discharge: independent ambulation, Overall status at discharge: patient is progressing back to baseline Quality Metrics Clinical Quality Measures [ No reported AMI, CVA or VTE this stay] Coding Level of Care Code 53780 Total time (in minutes) for Discharge: 60 Diagnoses Bradycardia R00.1 Acute diastolic congestive heart failure I50.31 Heart failure chronicity: acute Heart failure type: diastolic Low grade fever R50.9 Fever with leukocytosis and leukocyte count greater than or equal to 20,000 D72.829 Bilateral leg pain M79.604; M79.605 Positive cardiac stress test R94.39 Third degree heart block by electrocardiogram I44.2 SIRS (systemic inflammatory response syndrome) R65.10
[2023-11-13 13:31] LABS: Methicillin-Resist S.aureu PCR NOT DETECTED (NOT DETECTED)
--- NOTE | 2023-11-13 15:02 | PC.NURSE ---
patient discharged to home. Instructions provided regarding new medication, followup appointments, and need for infusion center. Patient verbalized complete understanding. Patient taken via wheelchair to private vehicle. Spouse to provide transportation.
[2023-11-13 16:50] LABS: E. Chaffeensis AB IGG <1:64; E. Chaffeensis AB IGM <1:20
--- NOTE | 2023-11-13 18:34 | NMCV_ITS ---
NM vicente perf SPECT r/s* [id number] Oliver Pruett Age: 63 Gender: M : 1960 Exam Date: 11/13/2023 06:27 Ordering Phys: Griselda Herrera MD ([email or web address]) Technologist: JACE Solis Exam Location: [facility] Indications: CHEST PAIN STRESS TEST Please see separate stress test report in [facility] for full findings IMAGE PROTOCOL Rest/Stress 1 Lexiscan Day Radiopharmaceutical Dose (mCi) Administration Site Administered by Rest: Tc-99m 10.7 IV JACE Hickman Sestamibi Stress:Tc-99m 32.8 IV JACE Hickman Sestamibi Rest: 13-Nov-2023 60 Discovery 630 Stress: 13-Nov-2023 30 Discovery 630 0.4mg Lexiscan. Images obtained in supine and prone position. SPECT RESULTS Technical Quality: Excellent Raw Data Analysis: Normal Image Corrections: No attenuation or motion correction applied Summed Stress Score: 7 Summed Rest Score: 8 Summed Difference Score: 1 PERFUSION FINDINGS Moderate area of moderately decreased tracer uptake involving the basal mid and apical inferior, mid inferolateral, mid inferoseptal regions. Small area of slight reversibility was noted in the basal inferior region FUNCTIONAL RESULTS (calculated via Gated SPECT) Stress Image LV EF (%): 73 Stress EDV (mL):114 TID: 1.16 Stress ESV (mL):31 FUNCTIONAL FINDINGS: Segmental wall motion analysis revealing no gross wall motion abnormalities IMPRESSIONS 1. Myocardial perfusion imaging revealing moderate area of moderately decreased tracer uptake involving the inferior, inferoseptal and inferolateral regions with a small area of slight reversibility in the basal inferior region suggesting myocardial scarring in the distribution of the right coronary artery/circumflex artery with a small area of slight ischemia in the basal inferior region. The transient ischemic dilatation ratio was slightly elevated, suggesting endocardial ischemia. 2. Normal LV ejection fraction 73%. 3. LV wall motion analysis revealing no gross wall motion abnormalities. 4. Normal LV volume No similar previous studies are available for comparison Dr Griselda Herrera MD [facility] (Electronically Signed) Final Date: 13 Nov 2023 13:44 S
[2023-11-14 16:24] LABS: RMSF IGG NOT DETECTED; RMSF IGM NOT DETECTED
[2023-11-14 20:49] LABS: Bartonella Henselae IgG AB NEGATIVE; Bartonella Henselae IgM AB NEGATIVE; Bartonella Quintana IgG AB NEGATIVE
[2023-11-16 22:38] LABS: Brucella AB Agglutination <1:80 titer
[2023-11-17 21:29] LABS: F.tularensis IgG AB Serum Negative (Negative); F.tularensis IgM AB Serum Negative (Negative)
[2023-11-19 09:44] LABS: Leptospira DNA QL NOT DETECTED; Leptospira Source BLOOD
[2023-11-27 09:50] LABS: Bartonella Quintana IgM AB NEGATIVE; SM/RNP Antibodies <1.0 NEG
== END 2023-11-13 15:06 | disposition home or self-care (01) | DRG 308 ==
LOC: ER 11:32 → CSU 15:14
PROVIDERS: Podiatrist Foot & Ankle Surgery; Admitting Provider Internal Medicine; Emergency Provider Emergency Medicine; PCP Nurse Practitioner Family; Visit Provider Student in an Organized Health Care Education/Training Program
DX: I44.2 Atrioventricular block, complete (principal); I50.31 Acute diastolic (congestive) heart failure; R50.9 Fever, unspecified; D72.829 Elevated white blood cell count, unspecified; M79.605 Pain in left leg; M79.604 Pain in right leg; M25.571 Pain in right ankle and joints of right foot; I08.1 Rheumatic disorders of both mitral and tricuspid valves; Z11.52 Encounter for screening for COVID-19; Z90.2 Acquired absence of lung [part of]; Z87.891 Personal history of nicotine dependence; Z82.49 Family history of ischemic heart disease and other diseases of the circulatory system
CPT/HCPCS: 36415; 70491; 71045; 71250; 72132; 73701; 73720; 73723; 74177; 78452; 80053; 80061; 80202; 80503; 81001; 82550; 82607; 82746; 83036; 83540; 83550; 83605; 83735; 83880; 84145; 84443; 84484; 84550; 85025; 85610; 85651; 85730; 86140; 86141; 86160; 86225; 86235; 86403; 86592; 86611; 86617; 86618; 86622; 86666; 86668; 86757; 87040; 87070; 87075; 87205; 87449; 87486; 87581; 87633; 87641; 87798; 87806; 89050; 93005; 93017; 93306; 93312; 93320; 93325; 96365; 96372; 96375; 97161; 99285; 99291; 99292; A9500; A9577; G0378; J0456; J0461; J0696; J1250; J1644; J2405; J2704; J2765; J3370; J3475; J3490; J7050; Q9967

== ENCOUNTER 2023-11-20 13:00 | Oncology outpatient (recurring) (ONCR) | payer OTHER, SELFPAY ==
[2023-11-14 08:19] VITALS: BP 134/71; PULSE 79; RESP 16; TEMP 36.9; O2SAT 94
[2023-11-14] MEDS: cefTRIAXone 2,000 MG in sodium chloride 0.9% (plus) 50 ML 100 MG IV (08:25)
[2023-11-14 08:57] VITALS: BP 123/75; PULSE 76; RESP 16; TEMP 37.2; O2SAT 95
[2023-11-15 09:50] VITALS: BP 121/68; PULSE 72; RESP 16; TEMP 36.6; O2SAT 96
[2023-11-15] MEDS: cefTRIAXone 2,000 MG in sodium chloride 0.9% (plus) 50 ML 100 MG IV (10:17)
[2023-11-16 10:00] VITALS: BP 117/62; PULSE 97; RESP 18; TEMP 36.4; O2SAT 97
[2023-11-16] MEDS: cefTRIAXone 2,000 MG in sodium chloride 0.9% (plus) 50 ML 100 MG IV (10:15)
[2023-11-17 12:56] VITALS: BP 130/72; PULSE 77; TEMP 36.8; O2SAT 95
[2023-11-17] MEDS: cefTRIAXone 2,000 MG in sodium chloride 0.9% (plus) 50 ML 100 MG IV (12:58)
[2023-11-17 13:25] VITALS: BP 116/60; PULSE 76; RESP 16; TEMP 36.3; O2SAT 93
[2023-11-17 14:00] VITALS: BP 156/76; PULSE 93; RESP 18; TEMP 36.8; O2SAT 97
[2023-11-18] MEDS: cefTRIAXone 2,000 MG in sodium chloride 0.9% (plus) 50 ML 100 MG IV (13:09)
[2023-11-18 13:12] VITALS: BP 141/78; PULSE 74; RESP 18; TEMP 36.8; O2SAT 98
[2023-11-18 13:41] VITALS: BP 129/66; PULSE 83; RESP 17; TEMP 36.8; O2SAT 96
[2023-11-19 12:48] VITALS: BP 152/79; PULSE 90; RESP 16; TEMP 36.5; O2SAT 96
[2023-11-19] MEDS: cefTRIAXone 2,000 MG in sodium chloride 0.9% (plus) 50 ML 100 MG IV (12:52)
[2023-11-19 13:30] VITALS: BP 145/78; PULSE 78; RESP 17; TEMP 36.6; O2SAT 98
[2023-11-20 13:07] VITALS: BP 151/68; PULSE 92; RESP 16; TEMP 36.6; O2SAT 95
== END 2023-11-28 23:59 | disposition home or self-care (01) ==
PROVIDERS: PCP Nurse Practitioner Family; Visit Provider Student in an Organized Health Care Education/Training Program
DX: R65.10 Systemic inflammatory response syndrome (SIRS) of non-infectious origin without acute organ dysfunction (principal); Z53.9 Procedure and treatment not carried out, unspecified reason
CPT/HCPCS: 93005; 96365; J0696

== ENCOUNTER → 2024-08-03 09:43 | Outpatient (BNVA) | payer MEDICARE, SELFPAY | PROVIDERS: PCP Nurse Practitioner Family; Visit Provider Nurse Practitioner Family | DX: R00.1 Bradycardia, unspecified (principal); I50.31 Acute diastolic (congestive) heart failure; Z87.891 Personal history of nicotine dependence | CPT/HCPCS: 99214 ==